=== PATIENT | male | born 1975 | race American Indian/Alaskan Native ===

== ENCOUNTER 2018-09-05 19:17 | Inpatient (IN) | payer MEDICAID, OTHER ==
[2018-09-05 19:17] VITALS: BMI 24.2
[2018-09-05] MEDS ORDERED: Sodium Chloride 0.9% 1,000 ML IV ONE (20:07)
--- NOTE | 2018-09-05 20:07 | C.PDOC ---
History Of Present Illness 43 year old male with PMHx on non insulin dependent DM presents to the ED c/o worsening infection of right leg wound. Patient reports wound has been worsening for the last couple of week. Patient reports feeling pain with ambulation. Patient is non compliant with his medications for diabetes. Patient denies fever, chills, nausea, vomit, diarrhea, injury, fall, trauma, weakness, numbness. Time Seen by Provider: 09/05/18 20:07 Chief Complaint (Nursing): Wound Check History Per: Patient History/Exam Limitations: no limitations Onset/Duration Of Symptoms: Days Ago Current Symptoms Are (Timing): Still Present Location Of Injury: Right: Leg Quality Of Symptoms: Painful, Draining Recent travel outside of the [place]: No Additional History Per: Patient Past Medical History Reviewed: Historical Data, Nursing Documentation, Vital Signs Vital Signs: Last Vital Signs Temp 98.3 F 09/05/18 19:46 Pulse 90 09/05/18 19:46 Resp 14 09/05/18 19:46 BP Pulse Ox 98 09/05/18 19:46 - Medical History PMH: Depression (pt experiences depression as a result of unemployment since 2011) Denies: Chronic Kidney Disease Surgical History: No Surg Hx - [facility] Procedures CATARAC PHACOEMULS/ASPIR (03/31/15) INSERT LENS AT CATAR EXT (03/31/15) Family History: States: Unknown Family Hx - Social History Hx Alcohol Use: No Hx Substance Use: No - Immunization History Hx Tetanus Toxoid Vaccination: No Hx Influenza Vaccination: No Hx Pneumococcal Vaccination: No Review Of Systems Constitutional: Negative for: Fever, Chills Cardiovascular: Negative for: Chest Pain Respiratory: Negative for: Shortness of Breath Gastrointestinal: Negative for: Nausea, Vomiting, Abdominal Pain Musculoskeletal: Positive for: Leg Pain Skin: Positive for: Other Neurological: Negative for: Weakness, Numbness, Headache, Dizziness Physical Exam - Physical Exam Appears: Non-toxic, No Acute Distress Skin: Warm, Dry Head: Normacephalic Eye(s): bilateral: Normal Inspection Oral Mucosa: Dry Neck: Supple Chest: Symmetrical Cardiovascular: Rhythm Regular Respiratory: No Rales, No Rhonchi, No Wheezing Gastrointestinal/Abdominal: Soft, No Tenderness, No Guarding, No Rebound Extremity: Capillary Refill (< 2 seconds) Extremity: Right: Other (5x10 cm area of erythema induration with central non healing ulcer with purulent materila expressed), Bilateral: Atraumatic, Normal ROM Pulses: Left Dorsalis Pedis: Normal, Right Dorsalis Pedis: Normal Neurological/Psych: Oriented x3, Normal Speech, Normal Cognition, Normal Motor, Normal Sensation Gait: Steady (with pain) ED Course And Treatment - Laboratory Results Result Diagrams: 09/05/18 20:16 09/05/18 20:16 O2 Sat by Pulse Oximetry: 98 (ON RA) Pulse Ox Interpretation: Normal - CT Scan/US CT lower extremity Other Rad Studies (CT/US): Read By Radiologist, Radiology Report Reviewed CT/US Interpretation: EXAM: CT Tibia and Fibula, right, without IV contrast. CLINICAL HISTORY: Cellulitis, abscess. TECHNIQUE: Axial computed tomography images of the right tibia and fibula without intravenous contrast. CONTRAST: None. COMPARISON: None provided. FINDINGS: BONES: No acute fracture is evident. No aggressive appearing osseous lesion. No periosteal reaction evident. JOINTS: Diffuse subcutaneous swelling about the knee and extending into the calf and ankle most compatible with cellulitis. SOFT TISSUES: 2 small metallic elongated structures are noted in the region of prepatellar bursa compatible with foreign bodies. IMPRESSION: 1. 2 small metallic elongated structures are noted in the region of prepatellar bursa compatible with foreign bodies. 2. Diffuse subcutaneous swelling about the knee and extending into the calf and ankle most compatible with cellulitis. No evidence of abscess. . Electronically signed on Sep 05, 2018 10:17:49 PM EST by: Amish Villafuerte M.D., JEREMY Certified By ABR & CBCCT. Fellowship Trained MRI and CT Specialist. Progress Note: Plan: - VBG. - CT lower extremity. - EKG. - Labs. - CXR. - IV fluids. - Zosyn. - Vancomycin. - Blood culture. - UA Disposition Discussed With : Roni Cordova Comment: accepted the pt onhis service and took over the care at 10:22 PM Doctor Will See Patient In The: ED Counseled Patient/Family Regarding: Studies Performed, Diagnosis - Disposition Disposition: HOSPITALIZED Disposition Time: 20:07 Condition: FAIR Forms: [facility] ([place]) - POA Present On Arrival: Poor Glycemic Control, Pressure Ulcer - Clinical Impression Clinical Impression: Infection of skin, Poorly controlled diabetes mellitus, Cellulitis - Scribe Statement The provider has reviewed the documentation as recorded by the Scribbryce Graham All medical record entries made by the Arvind were at my direction and personally dictated by me. I have reviewed the chart and agree that the record accurately reflects my personal performance of the history, physical exam, medical decision making, and the department course for this patient. I have also personally directed, reviewed, and agree with the discharge instructions and disposition. Decision To Admit - Pt Status Changed To: Hospital Disposition Of: Inpatient - Admit Certification Admit to Inpatient:: After my assessment, the patient will require hospitalization for at least two midnights. This is because of the severity of symptoms shown, intensity of services needed, and/or the medical risk in this patient being treated as an outpatient. - InPatient: Physician Admission Certification: I certify that this patient requires 2 or more midnights of care for the following reason:: After my assessment, the patient will require hospitalization for at least two midnights. This is because of the severity of symptoms shown, intensity of services needed, and/or the medical risk in this patient being treated as an outpatient. - . Bed Request Type: Regular Admitting Physician: Roni Cordova Patient Diagnosis: Infection of skin, Poorly controlled diabetes mellitus, Cellulitis
[2018-09-05 20:19] LABS: BASO # 0.1 K/uL (0.0-0.2); EOS # 0.1 K/uL (0.0-0.7); EOS % 0.8 % (0.0-4.0); LYMPH # 1.9 K/uL (1.0-4.3); LYMPH % 21.5 % (20.0-40.0); MEAN CELL VOLUME 92.1 fL (80.0-94.0); MEAN CORPUSCULAR HEMOGLOBIN 30.4 pg (27.0-31.0); MEAN PLATELET VOLUME 8.9 fL (7.2-11.7); MONO # 0.8 K/uL (0.0-0.8); MONO % 9.4 % (0.0-10.0); NEUT # 5.9 K/uL (1.8-7.0); NEUT % 67.3 % (50.0-75.0); RBC 3.29 Mil/uL (4.40-5.90); RED CELL DISTRIBUTION WIDTH 12.7 % (11.5-14.5); WHITE BLOOD COUNT 8.8 K/uL (4.8-10.8)
[2018-09-05] MEDS ORDERED: Piperacillin/Tazobact 3.375 gm 100 ML IVPB STA (20:21)
[2018-09-05 20:27] LABS: PROTHROMBIN TIME 10.7 SECONDS (9.7-12.2)
[2018-09-05 20:30] LABS: VENOUS BLOOD GAS PCO2 50 mmHg (40-60); VENOUS BLOOD GAS PO2 32 mm/Hg (30-55)
[2018-09-05] MEDS ORDERED: Vancomycin 1 GM 1 GM/250 ML BAG IVPB SCH (20:30)
[2018-09-05] MEDS ORDERED: Piperacillin/Tazobact 3.375 gm 100 ML IVPB ONE (20:49)
[2018-09-05] MEDS ORDERED: Vancomycin 1 GM 1 GM/250 ML BAG IVPB ONE ×2 (20:49→21:00)
[2018-09-05 20:56] LABS: ALB/GLOB RATIO 0.8 (1.0-2.1); ALBUMIN 3.3 g/dL (3.5-5.0); ALT/SGPT 17 U/L (21-72); AST/SGOT 25 U/L (17-59); BLOOD UREA NITROGEN 38 mg/dL (9-20); CALCIUM 8.9 mg/dl (8.6-10.4); GFR NON-AFRICAN AMERICAN 55
[2018-09-05 21:00] LABS: SQUAMOUS EPITHIAL < 1 /hpf (0-5); URINE BILIRUBIN NEGATIVE (NEGATIVE); URINE BLOOD 2+ (NEGATIVE); URINE CLARITY Clear (Clear); URINE COLOR Straw (YELLOW); URINE GLUCOSE (UA) 3+ mg/dL (Normal); URINE LEUKOCYTE ESTERASE NEG Leu/uL (Negative); URINE PROTEIN 2+ mg/dL (NEGATIVE); URINE UROBILINOGEN NORMAL mg/dL (0.2-1.0)
[2018-09-05] MEDS ORDERED: (Novolin R) Insulin Human Regular 100 units/ml vial SC ONE (22:04)
[2018-09-05] MEDS ORDERED: Glucagon Recombinant 1 mg Inj IM PRN (22:10)
[2018-09-05] MEDS ORDERED: Dextrose 50% SYRINGE Inj (50 ml) IV PRN (22:10)
[2018-09-05] MEDS ORDERED: (Novolin R) Insulin Human Regular 100 units/ml vial ONE (22:12)
[2018-09-05 22:56] LABS: BARBITURATES, UR NEGATIVE (NEGATIVE); BENZODIAZEPINES, UR NEGATIVE (NEGATIVE); OPIATES, UR NEGATIVE (NEGATIVE); PHENCYCLIDINE, UR NEGATIVE (NEGATIVE)
--- NOTE | 2018-09-06 01:32 | CP.PCM.HP ---
<Mattie Strange - Last Filed: 09/06/18 03:49> History of Present Illness - History of Present Illness History of Present Illness: cc: "leg swelling" Mr. Alarcon is a 43 year old male PMH uncontrolled diabetes, depression comes in for persistent leg wound on his R calf. On 08/16 a small pimple like formation formed on his right lateral calf. Over the next week, it grew in size, formed a head, and popped on its on. It drained a purulent, non- smelly liquid and has been leaking ever since. The patient attempted to keep the wound clean with hydrogen peroxide and dab drying it before wrapping it with gauze. The open wound remained the same size, but the skin surrounding it became erythematous and edematous. It swelled to the point of him being unable to bear weight due to the pain, expanding from just below his knee to his ankle. Only in the last two days has the swelling started to come down and him being able to bear weight once more. He was finally urged to come in by his mother who has told him to come seek medical treatment when it started. But due to his lack of insurance and fear of doctors, he didn't come in until now since he can walk again. Denies fever, chills, chest pain, palpitations, abdominal pain, back pain, left leg pain. PMD: none PMH: uncontrolled DM, depression Med: hasn't been on medication in 3 years. Was on Metformin bid All: NKDA PSxHx: L cataract surgery 2014 FamHx: unknown SocHx: 2-3 beers per month. Denies tobacco, illicit drug use. Currently moved from [facility] staying with a friend. 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 Proxy: mother- Marilin Alarcon [phone] Full Code Present on Admission - Present on Admission Any Indicators Present on Admission: No Review of Systems - Constitutional Constitutional: absent: Chills, Fever - EENT Eyes: absent: Blurred Vision, Diplopia Ears: absent: Decreased Hearing, Tinnitus, Dizziness - Cardiovascular Cardiovascular: absent: Chest Pain, Palpitations - Respiratory Respiratory: absent: Cough, Dyspnea - Gastrointestinal Gastrointestinal: absent: Abdominal Pain, Constipation, Diarrhea, Nausea, Vomiting - Genitourinary Genitourinary: absent: Dysuria, Urinary Frequency - Neurological Neurological: absent: Numbness, Tingling - Psychiatric Psychiatric: absent: Depression, Homicidal Ideation, Suicidal Ideation Past Patient History - Past Medical History & Family History Past Medical History?: Yes - Past Social History Smoking Status: Never Smoked Alcohol: Social Drugs: Denies - CARDIAC Hx Cardiac Disorders: No - PULMONARY Hx Respiratory Disorders: No - NEUROLOGICAL Hx Neurological Disorder: No - HEENT Hx HEENT Problems: Yes Hx Cataracts: Yes - RENAL Hx Chronic Kidney Disease: No - ENDOCRINE/METABOLIC Hx Endocrine Disorders: Yes Hx Diabetes Mellitus Type 2: Yes (non compliant) - HEMATOLOGICAL/ONCOLOGICAL Hx Blood Disorders: No - INTEGUMENTARY Hx Dermatological Problems: No - MUSCULOSKELETAL/RHEUMATOLOGICAL Hx Musculoskeletal Disorders: No - GASTROINTESTINAL Hx Gastrointestinal Disorders: No - GENITOURINARY/GYNECOLOGICAL Hx Genitourinary Disorders: No - PSYCHIATRIC Hx Depression: Yes (pt experiences depression as a result of unemployment since 2011) Hx Substance Use: No - SURGICAL HISTORY Hx Surgeries: No - ANESTHESIA Hx Anesthesia: No Meds Allergies/Adverse Reactions: Allergies Allergy/AdvReac Type Severity Reaction Status Date / Time No Known Allergies Allergy Verified 09/05/18 19:50 Physical Exam - Constitutional Appears: Well, No Acute Distress - Head Exam Head Exam: ATRAUMATIC, NORMOCEPHALIC - Eye Exam Eye Exam: EOMI, PERRL Pupil Exam: NORMAL ACCOMODATION Additional comments: glasses - ENT Exam ENT Exam: Mucous Membranes Moist - Neck Exam Neck exam: Negative for: Lymphadenopathy, Tenderness - Respiratory Exam Respiratory Exam: Clear to Auscultation Bilateral, NORMAL BREATHING PATTERN. absent: Rales, Rhonchi, Wheezes - Cardiovascular Exam Cardiovascular Exam: REGULAR RHYTHM, +S1, +S2. absent: Gallop, Rubs, Systolic Murmur - GI/Abdominal Exam GI & Abdominal Exam: Normal Bowel Sounds, Soft. absent: Distended, Firm, Guarding, Rebound, Tenderness - Extremities Exam Extremities exam: Positive for: calf tenderness, normal capillary refill, tenderness, pedal pulses present Additional comments: peripheral pulses palpable bilaterally (radial, DP, PT) IV access in R AC - Neurological Exam Neurological exam: Alert, CN II-XII Intact, Oriented x3 - Psychiatric Exam Psychiatric exam: Normal Affect, Normal Mood - Skin Skin Exam: Normal Color, Warm Additional comments: frankly oozing open lesion white pus at midway of calf dry scaly skin erythematous and edematous skin marked for borders Results - Vital Signs Recent Vital Signs: Last Vital Signs Temp 98.5 F 09/06/18 00:44 Pulse 81 09/06/18 00:44 Resp 20 09/06/18 00:44 BP 132/85 09/06/18 00:44 Pulse Ox 98 09/06/18 00:44 - Labs Result Diagrams: 09/05/18 20:16 09/05/18 20:16 Labs: Laboratory Results - last 24 hr 09/05/18 09/05/18 09/05/18 19:45 20:16 20:16 WBC 8.8 RBC 3.29 L Hgb 10.0 L D Hct 30.4 L MCV 92.1 MCH 30.4 MCHC 33.0 RDW 12.7 Plt Count 405 H D MPV 8.9 Neut % (Auto) 67.3 Lymph % (Auto) 21.5 [place] % (Auto) 9.4 Eos % (Auto) 0.8 Baso % (Auto) 1.0 Neut # (Auto) 5.9 Lymph # (Auto) 1.9 [place] # (Auto) 0.8 Eos # (Auto) 0.1 Baso # (Auto) 0.1 PT 10.7 INR 1.0 APTT 34 pO2 VBG pH VBG pCO2 VBG HCO3 VBG Total CO2 VBG O2 Sat (Calc) VBG Base Excess VBG Potassium Glucose Lactate FiO2 Crit Value Called To Crit Value Called By Crit Value Read Back Blood Gas Notified Time Sodium Potassium Chloride Carbon Dioxide Anion Gap BUN Creatinine Est GFR ( Amer) Est GFR (Non-Af Amer) POC Glucose (mg/dL) > 500 H* Random Glucose Calcium Total Bilirubin AST ALT Alkaline Phosphatase Total Protein Albumin Globulin Albumin/Globulin Ratio Venous Blood Potassium Urine Color Urine Clarity Urine pH Ur Specific [place] Urine Protein Urine Glucose (UA) Urine Ketones Urine Blood Urine Nitrate Urine Bilirubin Urine Urobilinogen Ur Leukocyte Esterase Urine WBC (Auto) Urine RBC (Auto) Ur Squamous Epith Cells Urine Opiates Screen Urine Methadone Screen Ur Barbiturates Screen Ur Phencyclidine Scrn Ur Amphetamines Screen U Benzodiazepines Scrn U Oth Cocaine Metabols U Cannabinoids Screen B-Hydroxybutyrate 09/05/18 09/05/18 09/05/18 20:16 20:20 20:46 WBC RBC Hgb Hct MCV MCH MCHC RDW Plt Count MPV Neut % (Auto) Lymph % (Auto) [place] % (Auto) Eos % (Auto) Baso % (Auto) Neut # (Auto) Lymph # (Auto) [place] # (Auto) Eos # (Auto) Baso # (Auto) PT INR APTT pO2 32 VBG pH 7.40 VBG pCO2 50 VBG HCO3 27.9 VBG Total CO2 32.5 H VBG O2 Sat (Calc) 67.1 H VBG Base Excess 5.0 H VBG Potassium 4.8 Glucose 586 H* Lactate 1.2 FiO2 21.0 Crit Value Called To Medardo calvert Crit Value Called By Hugo [facility] Crit Value Read Back Y Blood Gas Notified Time 2029 Sodium 131 L 133.0 Potassium 5.0 Chloride 93 L 99.0 Carbon Dioxide 30 Anion Gap 13 BUN 38 H Creatinine 1.4 Est GFR ( Amer) > 60 Est GFR (Non-Af Amer) 55 POC Glucose (mg/dL) Random Glucose 591 H* D Calcium 8.9 Total Bilirubin 0.4 AST 25 ALT 17 L Alkaline Phosphatase 522 H Total Protein 7.4 Albumin 3.3 L Globulin 4.1 H Albumin/Globulin Ratio 0.8 L Venous Blood Potassium 4.8 Urine Color Straw Urine Clarity Clear Urine pH 5.0 Ur Specific [place] 1.026 Urine Protein 2+ H Urine Glucose (UA) 3+ H Urine Ketones Negative Urine Blood 2+ H Urine Nitrate Negative Urine Bilirubin Negative Urine Urobilinogen Normal Ur Leukocyte Esterase Neg Urine WBC (Auto) 2 Urine RBC (Auto) 14 H Ur Squamous Epith Cells < 1 Urine Opiates Screen Urine Methadone Screen Ur Barbiturates Screen Ur Phencyclidine Scrn Ur Amphetamines Screen U Benzodiazepines Scrn U Oth Cocaine Metabols U Cannabinoids Screen B-Hydroxybutyrate 0.05 09/05/18 09/05/18 21:43 22:30 WBC RBC Hgb Hct MCV MCH MCHC RDW Plt Count MPV Neut % (Auto) Lymph % (Auto) [place] % (Auto) Eos % (Auto) Baso % (Auto) Neut # (Auto) Lymph # (Auto) [place] # (Auto) Eos # (Auto) Baso # (Auto) PT INR APTT pO2 VBG pH VBG pCO2 VBG HCO3 VBG Total CO2 VBG O2 Sat (Calc) VBG Base Excess VBG Potassium Glucose Lactate FiO2 Crit Value Called To Crit Value Called By Crit Value Read Back Blood Gas Notified Time Sodium Potassium Chloride Carbon Dioxide Anion Gap BUN Creatinine Est GFR ( Amer) Est GFR (Non-Af Amer) POC Glucose (mg/dL) 481 H* Random Glucose Calcium Total Bilirubin AST ALT Alkaline Phosphatase Total Protein Albumin Globulin Albumin/Globulin Ratio Venous Blood Potassium Urine Color Urine Clarity Urine pH Ur Specific [place] Urine Protein Urine Glucose (UA) Urine Ketones Urine Blood Urine Nitrate Urine Bilirubin Urine Urobilinogen Ur Leukocyte Esterase Urine WBC (Auto) Urine RBC (Auto) Ur Squamous Epith Cells Urine Opiates Screen Negative Urine Methadone Screen Negative Ur Barbiturates Screen Negative Ur Phencyclidine Scrn Negative Ur Amphetamines Screen Negative U Benzodiazepines Scrn Negative U Oth Cocaine Metabols Negative U Cannabinoids Screen Negative B-Hydroxybutyrate - EKG Data EKG Interpreted by: ER Physician EKG shows normal: Sinus rhythm Rate: Normal Assessment & Plan - Assessment and Plan (Free Text) Assessment: 43yo M PMH uncontrolled diabetes, depression admitted for poorly healing R calf wound. Plan: Lower Lateral Leg cellulitis - CT (09/05): pending read - f/u blood Cx - f/u wound Cx - Vanc 1gm IV q12 (started 09/05) - Vanc trough 12/ at 9:30am - Vanc trough 12/ at 9:30am - Zosyn 3.375gm IV q6 (started 09/05) - ID consulted: Dr. Langston - nini appreciated - Surgery consulted: Dr. Salomon campbell appreciated - warm compresses to exude pus - no surgical intervention at this time Right lower lateral leg diabetic ulcer - see above - no evidence of periosteal reaction on CT leg Uncontrolled Diabetes - patient has not taken medication for the last 3 years - f/u Hgb A1c - Regular ISS - hypoglycemia protocol - f/u TSH, T4, lipid panel - Crestor 5mg po HS - Lisinopril 2.5mg po daily Depression - Patient did not reveal during exam, based on prior record review - denies plans to hurt himself, is motivated to get healthy to care for his daughter - f/u UDS - Psych consult: Dr. Miller - help appreciated Hyponatremia - likely pseudohyponatremia 2/2 from elevated glucose (corrected: 137) - 14u regular insulin given in ED - Accucheck at 1am was in 64, followed hypoglycemia protocol - trend with AM labs Anemia - likely 2/2 chronic disease (DM2) - f/u VitB12, Folate, Fe studies PPx - DVT: risk score 2-Heparin 5000u sc q8, SCD left leg only - GI: not indicated - Diet: HHD diabetic d/w Dr. Klever Strange PGY-1 - Date & Time Date: 09/05/18 Time: 22:30 <Roni Cordova - Last Filed: 09/06/18 06:46> Results - Vital Signs Recent Vital Signs: Last Vital Signs Temp 98.5 F 09/06/18 00:50 Pulse 93 H 09/06/18 00:50 Resp 18 09/06/18 03:05 BP 147/81 09/06/18 00:50 Pulse Ox 97 09/06/18 00:50 - Labs Result Diagrams: 09/05/18 20:16 09/05/18 20:16 Labs: Laboratory Results - last 24 hr 09/05/18 09/05/18 09/05/18 19:45 20:16 20:16 WBC 8.8 RBC 3.29 L Hgb 10.0 L D Hct 30.4 L MCV 92.1 MCH 30.4 MCHC 33.0 RDW 12.7 Plt Count 405 H D MPV 8.9 Neut % (Auto) 67.3 Lymph % (Auto) 21.5 [place] % (Auto) 9.4 Eos % (Auto) 0.8 Baso % (Auto) 1.0 Neut # (Auto) 5.9 Lymph # (Auto) 1.9 [place] # (Auto) 0.8 Eos # (Auto) 0.1 Baso # (Auto) 0.1 PT 10.7 INR 1.0 APTT 34 pO2 VBG pH VBG pCO2 VBG HCO3 VBG Total CO2 VBG O2 Sat (Calc) VBG Base Excess VBG Potassium Glucose Lactate FiO2 Crit Value Called To Crit Value Called By Crit Value Read Back Blood Gas Notified Time Sodium Potassium Chloride Carbon Dioxide Anion Gap BUN Creatinine Est GFR ( Amer) Est GFR (Non-Af Amer) POC Glucose (mg/dL) > 500 H* Random Glucose Calcium Total Bilirubin AST ALT Alkaline Phosphatase Total Protein Albumin Globulin Albumin/Globulin Ratio Venous Blood Potassium Urine Color Urine Clarity Urine pH Ur Specific [place] Urine Protein Urine Glucose (UA) Urine Ketones Urine Blood Urine Nitrate Urine Bilirubin Urine Urobilinogen Ur Leukocyte Esterase Urine WBC (Auto) Urine RBC (Auto) Ur Squamous Epith Cells Urine Opiates Screen Urine Methadone Screen Ur Barbiturates Screen Ur Phencyclidine Scrn Ur Amphetamines Screen U Benzodiazepines Scrn U Oth Cocaine Metabols U Cannabinoids Screen B-Hydroxybutyrate 09/05/18 09/05/18 09/05/18 20:16 20:20 20:46 WBC RBC Hgb Hct MCV MCH MCHC RDW Plt Count MPV Neut % (Auto) Lymph % (Auto) [place] % (Auto) Eos % (Auto) Baso % (Auto) Neut # (Auto) Lymph # (Auto) [place] # (Auto) Eos # (Auto) Baso # (Auto) PT INR APTT pO2 32 VBG pH 7.40 VBG pCO2 50 VBG HCO3 27.9 VBG Total CO2 32.5 H VBG O2 Sat (Calc) 67.1 H VBG Base Excess 5.0 H VBG Potassium 4.8 Glucose 586 H* Lactate 1.2 FiO2 21.0 Crit Value Called To Medardo calvert Crit Value Called By [facility] Crit Value Read Back Y Blood Gas Notified Time 2029 Sodium 131 L 133.0 Potassium 5.0 Chloride 93 L 99.0 Carbon Dioxide 30 Anion Gap 13 BUN 38 H Creatinine 1.4 Est GFR ( Amer) > 60 Est GFR (Non-Af Amer) 55 POC Glucose (mg/dL) Random Glucose 591 H* D Calcium 8.9 Total Bilirubin 0.4 AST 25 ALT 17 L Alkaline Phosphatase 522 H Total Protein 7.4 Albumin 3.3 L Globulin 4.1 H Albumin/Globulin Ratio 0.8 L Venous Blood Potassium 4.8 Urine Color Straw Urine Clarity Clear Urine pH 5.0 Ur Specific [place] 1.026 Urine Protein 2+ H Urine Glucose (UA) 3+ H Urine Ketones Negative Urine Blood 2+ H Urine Nitrate Negative Urine Bilirubin Negative Urine Urobilinogen Normal Ur Leukocyte Esterase Neg Urine WBC (Auto) 2 Urine RBC (Auto) 14 H Ur Squamous Epith Cells < 1 Urine Opiates Screen Urine Methadone Screen Ur Barbiturates Screen Ur Phencyclidine Scrn Ur Amphetamines Screen U Benzodiazepines Scrn U Oth Cocaine Metabols U Cannabinoids Screen B-Hydroxybutyrate 0.05 09/05/18 09/05/18 09/06/18 21:43 22:30 01:37 WBC RBC Hgb Hct MCV MCH MCHC RDW Plt Count MPV Neut % (Auto) Lymph % (Auto) [place] % (Auto) Eos % (Auto) Baso % (Auto) Neut # (Auto) Lymph # (Auto) [place] # (Auto) Eos # (Auto) Baso # (Auto) PT INR APTT pO2 VBG pH VBG pCO2 VBG HCO3 VBG Total CO2 VBG O2 Sat (Calc) VBG Base Excess VBG Potassium Glucose Lactate FiO2 Crit Value Called To Crit Value Called By Crit Value Read Back Blood Gas Notified Time Sodium Potassium Chloride Carbon Dioxide Anion Gap BUN Creatinine Est GFR ( Amer) Est GFR (Non-Af Amer) POC Glucose (mg/dL) 481 H* 68 Random Glucose Calcium Total Bilirubin AST ALT Alkaline Phosphatase Total Protein Albumin Globulin Albumin/Globulin Ratio Venous Blood Potassium Urine Color Urine Clarity Urine pH Ur Specific [place] Urine Protein Urine Glucose (UA) Urine Ketones Urine Blood Urine Nitrate Urine Bilirubin Urine Urobilinogen Ur Leukocyte Esterase Urine WBC (Auto) Urine RBC (Auto) Ur Squamous Epith Cells Urine Opiates Screen Negative Urine Methadone Screen Negative Ur Barbiturates Screen Negative Ur Phencyclidine Scrn Negative Ur Amphetamines Screen Negative U Benzodiazepines Scrn Negative U Oth Cocaine Metabols Negative U Cannabinoids Screen Negative B-Hydroxybutyrate 09/06/18 01:40 WBC RBC Hgb Hct MCV MCH MCHC RDW Plt Count MPV Neut % (Auto) Lymph % (Auto) [place] % (Auto) Eos % (Auto) Baso % (Auto) Neut # (Auto) Lymph # (Auto) [place] # (Auto) Eos # (Auto) Baso # (Auto) PT INR APTT pO2 VBG pH VBG pCO2 VBG HCO3 VBG Total CO2 VBG O2 Sat (Calc) VBG Base Excess VBG Potassium Glucose Lactate FiO2 Crit Value Called To Crit Value Called By Crit Value Read Back Blood Gas Notified Time Sodium Potassium Chloride Carbon Dioxide Anion Gap BUN Creatinine Est GFR ( Amer) Est GFR (Non-Af Amer) POC Glucose (mg/dL) 64 L Random Glucose Calcium Total Bilirubin AST ALT Alkaline Phosphatase Total Protein Albumin Globulin Albumin/Globulin Ratio Venous Blood Potassium Urine Color Urine Clarity Urine pH Ur Specific [place] Urine Protein Urine Glucose (UA) Urine Ketones Urine Blood Urine Nitrate Urine Bilirubin Urine Urobilinogen Ur Leukocyte Esterase Urine WBC (Auto) Urine RBC (Auto) Ur Squamous Epith Cells Urine Opiates Screen Urine Methadone Screen Ur Barbiturates Screen Ur Phencyclidine Scrn Ur Amphetamines Screen U Benzodiazepines Scrn U Oth Cocaine Metabols U Cannabinoids Screen B-Hydroxybutyrate Attending/Attestation - Attestation I have personally seen and examined this patient.: Yes I have fully participated in the care of the patient.: Yes I have reviewed all pertinent clinical information: Yes Notes (Text): 09/06/18 06:43 Patient was seen and examined right before resident Dr. Vonda Strange. History, Physical, Assessment and Plan and all orders were gone over in detail with Dr. Strange. Please note that open wound that Dr. Strange mentions in Physical Exam section is located in the Right Lateral Lower Mid Tibial region, it is circular in nature and measures 2.5 cm in diameter. It is surrounded by a large area of skin that is warm to the touch, nontender to palpation, slightly erythematous nonblanchable and edematous. The outer margins of this large area of the skin was demarcated with black ink. Roni Cordova D.O.
[2018-09-06] MEDS ORDERED: Pneumococcal 23-Valent Vaccine IM ONE (03:29)
[2018-09-06] MEDS: Piperacill/Tazo 3.375gm in Dex 3.375 GM/50 ML BAG IVPB SCH ×4 (03:44→21:09)
--- NOTE | 2018-09-06 05:52 | CP.PCM.CON ---
History of Present Illness - History of Present Illness History of Present Illness: General Surgery Consult Note for Dr. Latif This is a 43M with a PMH DM who presented due to a lower extremity infection that began in august however on 08/16 a "small pimple" developed on his right lateral calf. It popped last week and starte draining purulent fluid. Since then the swelling has decreased as well as the pain. He denies any fevers or chills at home. He reports no affect on his ability to walk or get around. [facility]. Denies fever, chills, chest pain, palpitations, abdominal pain, back pain, left leg pain. PMH: uncontrolled DM, depression PSH: L cataract surgery 2014 Social: Denies vices All: NKDA Review of Systems - Review of Systems Review of Systems: 12 point reveiew of symptoms conducted and negative except for draining skin lesion Past Patient History - Past Medical History & Family History Past Medical History?: Yes - Past Social History Smoking Status: Never Smoked Alcohol: Social Drugs: Denies - CARDIAC Hx Cardiac Disorders: No - PULMONARY Hx Respiratory Disorders: No - NEUROLOGICAL Hx Neurological Disorder: No - HEENT Hx HEENT Problems: Yes Hx Cataracts: Yes - RENAL Hx Chronic Kidney Disease: No - ENDOCRINE/METABOLIC Hx Endocrine Disorders: Yes Hx Diabetes Mellitus Type 2: Yes (non compliant) - HEMATOLOGICAL/ONCOLOGICAL Hx Blood Disorders: No - INTEGUMENTARY Hx Dermatological Problems: No - MUSCULOSKELETAL/RHEUMATOLOGICAL Hx Musculoskeletal Disorders: No - GASTROINTESTINAL Hx Gastrointestinal Disorders: No - GENITOURINARY/GYNECOLOGICAL Hx Genitourinary Disorders: No - PSYCHIATRIC Hx Depression: Yes (pt experiences depression as a result of unemployment since 2011) Hx Substance Use: No - SURGICAL HISTORY Hx Surgeries: No - ANESTHESIA Hx Anesthesia: No Meds Allergies/Adverse Reactions: Allergies Allergy/AdvReac Type Severity Reaction Status Date / Time No Known Allergies Allergy Verified 09/05/18 19:50 - Medications Medications: Current Medications Dextrose (Dextrose 50% Inj) 0 ml IV STAT PRN; Protocol PRN Reason: Hypoglycemia Protocol Dextrose (Glutose 15) 0 gm PO ONCE PRN; Protocol PRN Reason: Hypoglycemia Protocol Glucagon (Glucagen Diagnostic Kit) 0 mg IM STAT PRN; Protocol PRN Reason: Hypoglycemia Protocol Heparin Sodium (Porcine) (Heparin) 5,000 units SC Q8 [facility] Last Admin: 09/05/18 23:13 Dose: 5,000 units Vancomycin/Sodium Chloride (Vancomycin 1 Gm/Ns 200 Ml) 1 gm in 200 mls @ 166.6 mls/hr IVPB Q12H [facility]; Protocol Stop: 09/11/18 10:01 Dextrose (Dextrose 5% In Water 1000 Ml) 1,000 mls @ 0 mls/hr IV .Q0M PRN; Protocol PRN Reason: Hypoglycemia Protocol Piperacillin Sod/Tazobactam Sod (Zosyn 3.375 Gm Iv Premix) 3.375 gm in 50 mls @ 200 mls/hr IVPB Q6H [facility]; Protocol Last Admin: 09/06/18 03:44 Dose: 200 mls/hr Influenza Virus Vaccine (Fluzone Quad [id number]) 60 mcg IM .ONCE ONE Stop: 09/07/18 10:01 Insulin Human Regular (Novolin R) 0 unit SC ACHS [facility]; Protocol Lactobacillus Acidophilus (Bacid Acidophilus) 1 cap PO Q12H [facility] Lisinopril (Zestril) 2.5 mg PO DAILY [facility] Pneumococcal Polyvalent Vaccine (Pneumovax 23 Vaccine) 0.5 ml IM .ONCE ONE Stop: 09/07/18 10:01 Rosuvastatin Calcium (Crestor) 5 mg PO HS [facility] Last Admin: 09/05/18 23:14 Dose: 5 mg Physical Exam - Constitutional Appears: Non-toxic, No Acute Distress - Head Exam Head Exam: ATRAUMATIC, NORMOCEPHALIC - Eye Exam Eye Exam: EOMI - ENT Exam ENT Exam: Mucous Membranes Moist - Respiratory Exam Respiratory Exam: NORMAL BREATHING PATTERN - Cardiovascular Exam Cardiovascular Exam: +S1, +S2 - GI/Abdominal Exam GI & Abdominal Exam: Soft. absent: Distended, Firm, Guarding, Rigid, Tenderness - Extremities Exam Additional comments: right lower extremity calf with ulcerated lesion draining purulent fluid - Neurological Exam Neurological exam: Alert, Oriented x3 - Psychiatric Exam Psychiatric exam: Normal Affect, Normal Mood - Skin Skin Exam: Dry, Intact Results - Vital Signs Recent Vital Signs: Last Vital Signs Temp 98.5 F 09/06/18 00:50 Pulse 93 H 09/06/18 00:50 Resp 18 09/06/18 03:05 BP 147/81 09/06/18 00:50 Pulse Ox 97 09/06/18 00:50 - Labs Result Diagrams: 09/05/18 20:16 09/05/18 20:16 Labs: Laboratory Results - last 24 hr 09/05/18 09/05/18 09/05/18 19:45 20:16 20:16 WBC 8.8 RBC 3.29 L Hgb 10.0 L D Hct 30.4 L MCV 92.1 MCH 30.4 MCHC 33.0 RDW 12.7 Plt Count 405 H D MPV 8.9 Neut % (Auto) 67.3 Lymph % (Auto) 21.5 [place] % (Auto) 9.4 Eos % (Auto) 0.8 Baso % (Auto) 1.0 Neut # (Auto) 5.9 Lymph # (Auto) 1.9 [place] # (Auto) 0.8 Eos # (Auto) 0.1 Baso # (Auto) 0.1 PT 10.7 INR 1.0 APTT 34 pO2 VBG pH VBG pCO2 VBG HCO3 VBG Total CO2 VBG O2 Sat (Calc) VBG Base Excess VBG Potassium Glucose Lactate FiO2 Crit Value Called To Crit Value Called By Crit Value Read Back Blood Gas Notified Time Sodium Potassium Chloride Carbon Dioxide Anion Gap BUN Creatinine Est GFR ( Amer) Est GFR (Non-Af Amer) POC Glucose (mg/dL) > 500 H* Random Glucose Calcium Total Bilirubin AST ALT Alkaline Phosphatase Total Protein Albumin Globulin Albumin/Globulin Ratio Venous Blood Potassium Urine Color Urine Clarity Urine pH Ur Specific [place] Urine Protein Urine Glucose (UA) Urine Ketones Urine Blood Urine Nitrate Urine Bilirubin Urine Urobilinogen Ur Leukocyte Esterase Urine WBC (Auto) Urine RBC (Auto) Ur Squamous Epith Cells Urine Opiates Screen Urine Methadone Screen Ur Barbiturates Screen Ur Phencyclidine Scrn Ur Amphetamines Screen U Benzodiazepines Scrn U Oth Cocaine Metabols U Cannabinoids Screen B-Hydroxybutyrate 09/05/18 09/05/18 09/05/18 20:16 20:20 20:46 WBC RBC Hgb Hct MCV MCH MCHC RDW Plt Count MPV Neut % (Auto) Lymph % (Auto) [place] % (Auto) Eos % (Auto) Baso % (Auto) Neut # (Auto) Lymph # (Auto) [place] # (Auto) Eos # (Auto) Baso # (Auto) PT INR APTT pO2 32 VBG pH 7.40 VBG pCO2 50 VBG HCO3 27.9 VBG Total CO2 32.5 H VBG O2 Sat (Calc) 67.1 H VBG Base Excess 5.0 H VBG Potassium 4.8 Glucose 586 H* Lactate 1.2 FiO2 21.0 Crit Value Called To Medardo calvert Crit Value Called By [facility] Crit Value Read Back Y Blood Gas Notified Time 2029 Sodium 131 L 133.0 Potassium 5.0 Chloride 93 L 99.0 Carbon Dioxide 30 Anion Gap 13 BUN 38 H Creatinine 1.4 Est GFR ( Amer) > 60 Est GFR (Non-Af Amer) 55 POC Glucose (mg/dL) Random Glucose 591 H* D Calcium 8.9 Total Bilirubin 0.4 AST 25 ALT 17 L Alkaline Phosphatase 522 H Total Protein 7.4 Albumin 3.3 L Globulin 4.1 H Albumin/Globulin Ratio 0.8 L Venous Blood Potassium 4.8 Urine Color Straw Urine Clarity Clear Urine pH 5.0 Ur Specific [place] 1.026 Urine Protein 2+ H Urine Glucose (UA) 3+ H Urine Ketones Negative Urine Blood 2+ H Urine Nitrate Negative Urine Bilirubin Negative Urine Urobilinogen Normal Ur Leukocyte Esterase Neg Urine WBC (Auto) 2 Urine RBC (Auto) 14 H Ur Squamous Epith Cells < 1 Urine Opiates Screen Urine Methadone Screen Ur Barbiturates Screen Ur Phencyclidine Scrn Ur Amphetamines Screen U Benzodiazepines Scrn U Oth Cocaine Metabols U Cannabinoids Screen B-Hydroxybutyrate 0.05 09/05/18 09/05/18 09/06/18 21:43 22:30 01:37 WBC RBC Hgb Hct MCV MCH MCHC RDW Plt Count MPV Neut % (Auto) Lymph % (Auto) [place] % (Auto) Eos % (Auto) Baso % (Auto) Neut # (Auto) Lymph # (Auto) [place] # (Auto) Eos # (Auto) Baso # (Auto) PT INR APTT pO2 VBG pH VBG pCO2 VBG HCO3 VBG Total CO2 VBG O2 Sat (Calc) VBG Base Excess VBG Potassium Glucose Lactate FiO2 Crit Value Called To Crit Value Called By Crit Value Read Back Blood Gas Notified Time Sodium Potassium Chloride Carbon Dioxide Anion Gap BUN Creatinine Est GFR ( Amer) Est GFR (Non-Af Amer) POC Glucose (mg/dL) 481 H* 68 Random Glucose Calcium Total Bilirubin AST ALT Alkaline Phosphatase Total Protein Albumin Globulin Albumin/Globulin Ratio Venous Blood Potassium Urine Color Urine Clarity Urine pH Ur Specific [place] Urine Protein Urine Glucose (UA) Urine Ketones Urine Blood Urine Nitrate Urine Bilirubin Urine Urobilinogen Ur Leukocyte Esterase Urine WBC (Auto) Urine RBC (Auto) Ur Squamous Epith Cells Urine Opiates Screen Negative Urine Methadone Screen Negative Ur Barbiturates Screen Negative Ur Phencyclidine Scrn Negative Ur Amphetamines Screen Negative U Benzodiazepines Scrn Negative U Oth Cocaine Metabols Negative U Cannabinoids Screen Negative B-Hydroxybutyrate 09/06/18 01:40 WBC RBC Hgb Hct MCV MCH MCHC RDW Plt Count MPV Neut % (Auto) Lymph % (Auto) [place] % (Auto) Eos % (Auto) Baso % (Auto) Neut # (Auto) Lymph # (Auto) [place] # (Auto) Eos # (Auto) Baso # (Auto) PT INR APTT pO2 VBG pH VBG pCO2 VBG HCO3 VBG Total CO2 VBG O2 Sat (Calc) VBG Base Excess VBG Potassium Glucose Lactate FiO2 Crit Value Called To Crit Value Called By Crit Value Read Back Blood Gas Notified Time Sodium Potassium Chloride Carbon Dioxide Anion Gap BUN Creatinine Est GFR ( Amer) Est GFR (Non-Af Amer) POC Glucose (mg/dL) 64 L Random Glucose Calcium Total Bilirubin AST ALT Alkaline Phosphatase Total Protein Albumin Globulin Albumin/Globulin Ratio Venous Blood Potassium Urine Color Urine Clarity Urine pH Ur Specific [place] Urine Protein Urine Glucose (UA) Urine Ketones Urine Blood Urine Nitrate Urine Bilirubin Urine Urobilinogen Ur Leukocyte Esterase Urine WBC (Auto) Urine RBC (Auto) Ur Squamous Epith Cells Urine Opiates Screen Urine Methadone Screen Ur Barbiturates Screen Ur Phencyclidine Scrn Ur Amphetamines Screen U Benzodiazepines Scrn U Oth Cocaine Metabols U Cannabinoids Screen B-Hydroxybutyrate Assessment & Plan - Assessment and Plan (Free Text) Assessment: 43M with draining abscess Warm COmpresses IV ABX Follow up cultures and change abx depending on sensitivities Further recs per Dr. Salomon Marin PGY3
[2018-09-06] MEDS: Lactobacillus Acidophilus 500 MU Cap PO SCH ×2 (06:18→18:03)
[2018-09-06 07:38] LABS: BASO % 0.4 % (0.0-2.0); EOS % 0.1 % (0.0-4.0); LYMPH # 1.4 K/uL (1.0-4.3); LYMPH % 13.2 % (20.0-40.0); MEAN CORPUSCULAR HEMOGLOBIN 31.3 pg (27.0-31.0); MEAN CORPUSCULAR HGB CONC 34.8 g/dL (33.0-37.0); MEAN PLATELET VOLUME 8.5 fL (7.2-11.7); MONO # 0.9 K/uL (0.0-0.8); MONO % 8.3 % (0.0-10.0); NEUT # 8.5 K/uL (1.8-7.0); RBC 2.88 Mil/uL (4.40-5.90); RED CELL DISTRIBUTION WIDTH 12.3 % (11.5-14.5); WHITE BLOOD COUNT 10.9 K/uL (4.8-10.8)
[2018-09-06] MEDS: (Novolin R) Insulin Human Regular 100 units/ml vial SC SCH ×4 (07:44→21:38)
[2018-09-06 07:52] LABS: IRON 15 ug/dL (49-181)
[2018-09-06 07:58] LABS: ALB/GLOB RATIO 0.8 (1.0-2.1); ALT/SGPT 21 U/L (21-72); AST/SGOT 26 U/L (17-59); BLOOD UREA NITROGEN 31 mg/dL (9-20); CALCIUM 8.6 mg/dl (8.6-10.4); GFR NON-AFRICAN AMERICAN > 60; HDL CHOLESTEROL 51 mg/dL (30-70)
[2018-09-06 08:01] LABS: MEAN CELL VOLUME 89.9 fL (80.0-94.0)
[2018-09-06 08:08] LABS: % IRON SATURATION 8 (20-55); TOTAL IRON BINDING CAPACITY 196 ug/dL (250-450)
[2018-09-06 08:09] LABS: LDL CHOLESTEROL 109 mg/dL (0-129)
--- NOTE | 2018-09-06 08:15 | CT ---
CT right tibia and fibula HISTORY: Cellulitis. COMPARISON: None available. TECHNIQUE: Multiple contiguous axial images were performed through the right tibia and fibula with the use of intravenous contrast. Subsequently, sagittal and coronal reformatted images were obtained. This CT exam was performed using one or more of the following dose reduction techniques: Automated exposure control, adjustment of the mA and/or kV according to patient size, and/or use of iterative reconstruction technique. Findings: Two elongated vertically-oriented radiopaque densities are seen within the prepatellar soft tissues inferiorly, uncertain clinical etiology, possibly foreign bodies versus additional etiology. Clinical correlation. Correlation with plain x-ray may be helpful. Prominent reticulation and edema within the subcutaneous soft tissues at the anterior and lateral aspect of the left lower extremity at the level of the tibia and fibula consistent with the known cellulitis. In addition, there is reticulation, edema, and swelling seen within the musculature of the anterolateral compartment with loss of distinction of the myofascial planes. This may represent an underlying myositis; however, underlying phlegmonous changes cannot be excluded. In addition, given the containment to the anterolateral compartment a developing compartment syndrome can also not be excluded. Clinical correlation. Correlation with contrast-enhanced MRI may be helpful if clinically indicated. No gross or bony destructive changes noted at level of the bony cortex of the tibia and fibula. Mild hallux valgus deformity. Impression: Prominent reticulation and edema within the subcutaneous soft tissues at the anterior and lateral aspect of the left lower extremity at the level of the tibia and fibula consistent with the known cellulitis. In addition, there is reticulation, edema, and swelling seen within the musculature of the anterolateral compartment with loss of distinction of the myofascial planes. This may represent an underlying myositis; however, underlying phlegmonous changes cannot be excluded. In addition, given the containment to the anterolateral compartment a developing compartment syndrome can also not be excluded. Clinical correlation. Correlation with contrast-enhanced MRI may be helpful if clinically indicated. Two elongated vertically-oriented radiopaque densities are seen within the prepatellar soft tissues inferiorly, uncertain clinical etiology, possibly foreign bodies versus additional etiology. Clinical correlation. Correlation with plain x-ray may be helpful. A preliminary report was generated at 10:17 p.m. on 09/05/[address] Amish Villafuerte from [facility]
--- NOTE | 2018-09-06 08:41 | RAD ---
Chest x-ray single frontal view HISTORY: Shortness of breath. COMPARISON: 12/01/2014 FINDINGS: Mild venous congestion. Small nodular density at the right lung base may represent vessel on end versus small nodule and or granuloma. Tortuous aorta. Heart size within normal limits. Degenerative changes in the spine. IMPRESSION: Mild venous congestion. Small nodular density at the right lung base may represent vessel on end versus small nodule and or granuloma. Tortuous aorta.
[2018-09-06 08:59] LABS: FOLATE 11.5 ng/mL
--- NOTE | 2018-09-06 10:26 | PCM.PSYCH ---
Initial Psychiatric Evaluation - Initial Psychiatric Evaluation Type of Admission: Voluntary Legal Status: Capacity Chief Complaint (in patient's own words): "I'm OK" History of Present Illness and Precipitating Events: Patient is a 43 year old male who is currently single, lives with a friend, has one daughter, and is unemployed. Consult was requested for his depression. He presents to the hospital yesterday because his right leg is swollen. He denies feeling sad. He states that he recently has not been sleeping well and feels like "he has a lot going on". He denies changes in concentration, feelings of guilt, changes in activity, or changes in energy. He reports mild sxs of anxiety and depression b/c of his current stressors. He denies feelings of harming himself or others. He says he hasn't been able to take care of himself because he lacks health insurance. He denies tobacco or illicit drug use. Regarding alcohol use, he says he drinks socially about once a month. Past Psych Hx: Attended "[facility]" 3 years ago due to the stress he felt after losing his then job (?) Past Medical Hx: Diabetes. Hasn't seen doctor in 3 years. Past Family Psych Hx: Denies. Current Medications: Active Medications Generic Name Dose Route Start Last Admin Trade Name Freq PRN Reason Stop Dose Admin Dextrose 0 ml 09/05/18 22:10 Dextrose 50% Inj IV STAT PRN Hypoglycemia Protocol Protocol Dextrose 0 gm 09/05/18 22:10 Glutose 15 PO ONCE PRN Hypoglycemia Protocol Protocol Glucagon 0 mg 09/05/18 22:10 Glucagen Diagnostic Kit IM STAT PRN Hypoglycemia Protocol Protocol Heparin Sodium (Porcine) 5,000 units 09/05/18 22:30 09/06/18 06:18 Heparin SC 5,000 units Q8 [facility] Administration Vancomycin/Sodium Chloride 1 gm in 200 mls @ 166.6 mls/hr 09/06/18 10:00 Vancomycin 1 Gm/Ns 200 Ml IVPB 09/11/18 10:01 Q12H [facility] Protocol Dextrose 1,000 mls @ 0 mls/hr 09/05/18 22:10 Dextrose 5% In Water 1000 Ml IV .Q0M PRN Hypoglycemia Protocol Protocol Per Protocol Piperacillin Sod/Tazobactam Sod 3.375 gm in 50 mls @ 200 mls/hr 09/06/18 03:00 11/30/18 03:44 Zosyn 3.375 Gm Iv Premix IVPB 200 mls/hr Q6H [facility] Administration Protocol Influenza Virus Vaccine 60 mcg 09/07/18 10:00 Fluzone Quad [id number] IM 09/07/18 10:01 .ONCE ONE Insulin Human Regular 0 unit 09/06/18 07:30 09/06/18 07:44 Novolin R SC Not Given ACHS [facility] Protocol Lactobacillus Acidophilus 1 cap 09/06/18 07:00 09/06/18 06:18 Bacid Acidophilus PO 1 cap Q12H [facility] Administration Lisinopril 2.5 mg 09/06/18 10:00 Zestril PO DAILY [facility] Pneumococcal Polyvalent Vaccine 0.5 ml 09/07/18 10:00 Pneumovax 23 Vaccine IM 09/07/18 10:01 .ONCE ONE Rosuvastatin Calcium 5 mg 09/05/18 23:00 09/05/18 23:14 Crestor PO 5 mg HS [facility] Administration Past Psychiatric History - Past Psychiatric History Previous Treatment History: Intensive Outpatient (not intensive, short) Pertinent Medical Hx (Current Medical&Sleep Prob, Allergies): Allergies Allergy/AdvReac Type Severity Reaction Status Date / Time No Known Allergies Allergy Verified 09/05/18 19:50 GlipiZIDE SR [Glucotrol XL] 10 mg PO BID 03/19/15 Metformin HCl [Glucophage] 1,000 mg PO BID 03/19/15 Review of Systems - Psychiatric Psychiatric: Abnormal Sleep Pattern, Anxiety, Depression (mild), Difficulty Concentrating. absent: Hallucinations, Homicidal Ideation, Hopelessness, Suicidal Ideation Mental Status Examination - Personal Presentation Personal Presentation: Looks stated age - Affect Affect: Constricted - Motor Activity Motor Activity: Calm - Reliability in Providing Information Reliability in Providing Information: Good - Speech Speech: Organized - Mood Mood: Depressed (mild), Anxious - Formal Thought Process Formal Thought Process: No Impairment - Cognitive Functions Orientation: Person, Place, Situation, Time Sensorium: Alert Attention/Concentration: Easily distracted Estimate of Intelligence: Average Judgement: Intact, as evidence by: Insight regarding need for hospitalization Memory: Recent intact, as evidence by: Ability to recall events of the day, Remote intact, as evidenced by: Abilit to recall sig. life events - Risk Risk: Withdrawal, Diminished functioning - Strength & Assets Inventory Strength & Assets Inventory: Cooperative - Limitations Limitations: Living alone DSM 5 DX - DSM 5 DSM 5 Diagnosis: Adjustment d/o w anxiety and depression cocaine use d/o in remission - Recommended/Plan of Treatment Treatment Recommendations and Plan of Treatment: No need for psych meds Support and psychoed provided After care and getting help discussed prn meds Psych will sign of 33 min
[2018-09-06] MEDS: Vancomycin 1 gm/NS 200 ml 1 GM/200 ML BAG IVPB SCH ×2 (11:37→21:51)
--- NOTE | 2018-09-06 12:40 | CARD ---
APPROVED REPORT Date of service: 09/05/2018 EKG Measurement Heart [id number] <Conclusion> Normal sinus rhythm ST elevation, probably due to early repolarization Borderline ECG
[2018-09-06] MEDS: oxyCODONE 5 mg Immediate Release Tab PO PRN (15:20)
--- NOTE | 2018-09-06 16:29 | CP.PCM.PN ---
Subjective - Date & Time of Evaluation Date of Evaluation: 09/06/18 Time of Evaluation: 15:00 - Subjective Subjective: PGY-1 Medicine Progress Note for Dr. Henderson's service Patient seen and examined at bedside. Patient offers no acute complaints except mild soreness 2/2 I & D . Patient denies fevers, chills, chest pain, sob, n/v, constipation or diarrhea, dysuria. Objective - Vital Signs/Intake and Output Vital Signs (last 24 hours): Temp Pulse Resp BP Pulse Ox 98.2 F 93 H 20 154/85 H 99 09/06/18 08:00 09/06/18 08:00 09/06/18 08:00 09/06/18 08:00 09/06/18 08:00 - Medications Medications: Current Medications Acetaminophen (Tylenol 325mg Tab) 325 mg PO Q6 PRN PRN Reason: Pain, Mild (1-3) Acetaminophen (Tylenol 325mg Tab) 650 mg PO Q6 PRN PRN Reason: Pain, moderate (4-7) Dextrose (Dextrose 50% Inj) 0 ml IV STAT PRN; Protocol PRN Reason: Hypoglycemia Protocol Dextrose (Glutose 15) 0 gm PO ONCE PRN; Protocol PRN Reason: Hypoglycemia Protocol Glucagon (Glucagen Diagnostic Kit) 0 mg IM STAT PRN; Protocol PRN Reason: Hypoglycemia Protocol Heparin Sodium (Porcine) (Heparin) 5,000 units SC Q8 [facility] Last Admin: 09/06/18 14:46 Dose: 5,000 units Vancomycin/Sodium Chloride (Vancomycin 1 Gm/Ns 200 Ml) 1 gm in 200 mls @ 166.6 mls/hr IVPB Q12H [facility]; Protocol Stop: 09/11/18 10:01 Last Admin: 09/06/18 11:37 Dose: 166.6 mls/hr Dextrose (Dextrose 5% In Water 1000 Ml) 1,000 mls @ 0 mls/hr IV .Q0M PRN; Protocol PRN Reason: Hypoglycemia Protocol Piperacillin Sod/Tazobactam Sod (Zosyn 3.375 Gm Iv Premix) 3.375 gm in 50 mls @ 200 mls/hr IVPB Q6H [facility]; Protocol Last Admin: 09/06/18 14:45 Dose: 200 mls/hr Influenza Virus Vaccine (Fluzone Quad [id number]) 60 mcg IM .ONCE ONE Stop: 09/07/18 10:01 Insulin Human Regular (Novolin R) 0 unit SC ACHS [facility]; Protocol Last Admin: 09/06/18 11:50 Dose: 3 units Lactobacillus Acidophilus (Bacid Acidophilus) 1 cap PO Q12H [facility] Last Admin: 09/06/18 06:18 Dose: 1 cap Lisinopril (Zestril) 2.5 mg PO DAILY [facility] Last Admin: 09/06/18 11:37 Dose: 2.5 mg Oxycodone HCl (Oxycodone Immediate Release Tab) 5 mg PO Q6 PRN PRN Reason: Pain, severe (8-10) Last Admin: 09/06/18 15:20 Dose: 5 mg Pneumococcal Polyvalent Vaccine (Pneumovax 23 Vaccine) 0.5 ml IM .ONCE ONE Stop: 09/07/18 10:01 Rosuvastatin Calcium (Crestor) 5 mg PO HS [facility] Last Admin: 09/05/18 23:14 Dose: 5 mg - Labs Labs: 09/06/18 07:25 09/06/18 07:25 PT 10.7 SECONDS (9.7-12.2) 09/05/18 20:16 INR 1.0 09/05/18 20:16 APTT 34 SECONDS (21-34) 09/05/18 20:16 - Additional Findings Additional findings: - Constitutional Appears: Non-toxic, No Acute Distress - Head Exam Head Exam: ATRAUMATIC, NORMOCEPHALIC - Eye Exam Eye Exam: EOMI - ENT Exam ENT Exam: Mucous Membranes Moist - Respiratory Exam Respiratory Exam: NORMAL BREATHING PATTERN, Clear to Ascultation. absent: rhonchi, wheezes, crackles - Cardiovascular Exam Cardiovascular Exam: +S1, +S2 - GI/Abdominal Exam GI & Abdominal Exam: Soft. absent: Distended, Firm, Guarding, Rigid, Tenderness - Extremities Exam Additional comments: right lower extremity calf with ulcerated lesion draining purulent fluid - Neurological Exam Neurological exam: Alert, Oriented x3 - Psychiatric Exam Psychiatric exam: Normal Affect, Normal Mood - Skin Skin Exam: Dry, Intact Assessment and Plan - Assessment and Plan (Free Text) Assessment: Patient is a 43 yo male w/ PMH of depression, hyperlipidemia, and uncontrolled diabetes is admitted to hospital for treatment of abscess with surrounding cellulitis of the right calf. Psych, Surgery, Infectious Disease was consulted. Patient was treated with Vanc/Zosyn. Patient had elevated blood pressure r eadings so Zestril was initiated. Plan: Abscess with Surrounding Cellulitis Zosyn/Vanc for IV abx coverage Wound culture pending MRI of lower extremity pending Surgery Consulted- Dr. Daley: bedside I&D Oxycodone 5mg PO q6 PRN for pain Acetaminophen 325mg/650mg PO q6 PRN for pain Lactobacillius 1 cap PO q12h Uncontrolled Diabetes A1C- 16.6 ISS sliding scale Hypoglycemic protocol; ACHS Hypertension Zestril 2.5mg po daily Hyperlipidemia Crestor 5mg po HS Depression Psychiatry: Dr. Miller consulted- no intervention at this time Anemia Iron studies suggestive of anemia of chronic disease Patient is asymptomatic and hemodynamically stable PPx: DVT ppx: SCDS only on left leg GI ppx: PGY-1 Frederick Erazo Medical management discussed with Dr. Henderosn
--- NOTE | 2018-09-07 00:39 | CP.PCM.PN ---
<Romero Gunn - Last Filed: 09/07/18 00:34> Subjective - Date & Time of Evaluation Date of Evaluation: 09/07/18 Time of Evaluation: 00:34 - Subjective Subjective: HOSPITALIST SERVICE Pt seen and examined at bedside, still complains of soreness, no acute events overnight, denies fc nv sob cp Objective - Vital Signs/Intake and Output Vital Signs (last 24 hours): Temp Pulse Resp BP Pulse Ox 98.2 F 93 H 20 154/85 H 99 09/06/18 08:00 09/06/18 08:00 09/06/18 08:00 09/06/18 08:00 09/06/18 08:00 Intake and Output: 09/06/18 09/07/18 18:59 06:59 Intake Total 700 Balance 700 - Medications Medications: Current Medications Acetaminophen (Tylenol 325mg Tab) 325 mg PO Q6 PRN PRN Reason: Pain, Mild (1-3) Acetaminophen (Tylenol 325mg Tab) 650 mg PO Q6 PRN PRN Reason: Pain, moderate (4-7) Dextrose (Dextrose 50% Inj) 0 ml IV STAT PRN; Protocol PRN Reason: Hypoglycemia Protocol Dextrose (Glutose 15) 0 gm PO ONCE PRN; Protocol PRN Reason: Hypoglycemia Protocol Glucagon (Glucagen Diagnostic Kit) 0 mg IM STAT PRN; Protocol PRN Reason: Hypoglycemia Protocol Heparin Sodium (Porcine) (Heparin) 5,000 units SC Q8 [facility] Last Admin: 09/06/18 21:38 Dose: 5,000 units Vancomycin/Sodium Chloride (Vancomycin 1 Gm/Ns 200 Ml) 1 gm in 200 mls @ 166.6 mls/hr IVPB Q12H [facility]; Protocol Stop: 09/11/18 10:01 Last Admin: 09/06/18 21:51 Dose: 166.6 mls/hr Dextrose (Dextrose 5% In Water 1000 Ml) 1,000 mls @ 0 mls/hr IV .Q0M PRN; Protocol PRN Reason: Hypoglycemia Protocol Piperacillin Sod/Tazobactam Sod (Zosyn 3.375 Gm Iv Premix) 3.375 gm in 50 mls @ 200 mls/hr IVPB Q6H [facility]; Protocol Last Admin: 09/06/18 21:09 Dose: 200 mls/hr Influenza Virus Vaccine (Fluzone Quad [id number]) 60 mcg IM .ONCE ONE Stop: 09/07/18 10:01 Insulin Human Regular (Novolin R) 0 unit SC ACHS [facility]; Protocol Last Admin: 09/06/18 21:38 Dose: 2 units Lactobacillus Acidophilus (Bacid Acidophilus) 1 cap PO Q12H [facility] Last Admin: 09/06/18 18:03 Dose: 1 cap Lisinopril (Zestril) 2.5 mg PO DAILY [facility] Last Admin: 09/06/18 11:37 Dose: 2.5 mg Oxycodone HCl (Oxycodone Immediate Release Tab) 5 mg PO Q6 PRN PRN Reason: Pain, severe (8-10) Last Admin: 09/06/18 15:20 Dose: 5 mg Pneumococcal Polyvalent Vaccine (Pneumovax 23 Vaccine) 0.5 ml IM .ONCE ONE Stop: 09/07/18 10:01 Rosuvastatin Calcium (Crestor) 5 mg PO HS [facility] Last Admin: 09/06/18 21:45 Dose: 5 mg - Labs Labs: 09/06/18 07:25 09/06/18 07:25 PT 10.7 SECONDS (9.7-12.2) 09/05/18 20:16 INR 1.0 09/05/18 20:16 APTT 34 SECONDS (21-34) 09/05/18 20:16 - Additional Findings Additional findings: - Constitutional Appears: Non-toxic, No Acute Distress - Head Exam Head Exam: ATRAUMATIC, NORMOCEPHALIC - Eye Exam Eye Exam: EOMI - ENT Exam ENT Exam: Mucous Membranes Moist - Respiratory Exam Respiratory Exam: NORMAL BREATHING PATTERN, Clear to Ascultation. absent: rhonchi, wheezes, crackles - Cardiovascular Exam Cardiovascular Exam: +S1, +S2 - GI/Abdominal Exam GI & Abdominal Exam: Soft. absent: Distended, Firm, Guarding, Rigid, Tenderness - Extremities Exam Additional comments: right lower extremity calf with ulcerated lesion draining purulent fluid - Neurological Exam Neurological exam: Alert, Oriented x3 - Psychiatric Exam Psychiatric exam: Normal Affect, Normal Mood - Skin Skin Exam: Dry, Intact Assessment and Plan - Assessment and Plan (Free Text) Assessment: Patient is a 43 yo male w/ PMH of depression, hyperlipidemia, and uncontrolled diabetes is admitted to hospital for treatment of abscess with surrounding cellulitis of the right calf. Psych, Surgery, Infectious Disease was consulted. Patient was treated with Vanc/Zosyn. Patient had elevated blood pressure readings so Zestril was initiated. Plan: Abscess with Surrounding Cellulitis Zosyn/Vanc for IV abx coverage Wound culture pending MRI of lower extremity pending Surgery Consulted- Dr. Daley: bedside I&D Oxycodone 5mg PO q6 PRN for pain Acetaminophen 325mg/650mg PO q6 PRN for pain Lactobacillius 1 cap PO q12h Uncontrolled Diabetes A1C- 16.6 ISS sliding scale Hypoglycemic protocol; ACHS Hypertension Zestril 2.5mg po daily Hyperlipidemia Crestor 5mg po HS Depression Psychiatry: Dr. Miller consulted- no intervention at this time Anemia Iron studies suggestive of anemia of chronic disease Patient is asymptomatic and hemodynamically stable PPx: DVT ppx: SCDS only on left leg GI ppx: PGY-1 C Velia Medical management discussed with Dr. Henderson <Gena Dugan - Last Filed: 09/07/18 17:03> Objective - Vital Signs/Intake and Output Vital Signs (last 24 hours): Temp Pulse Resp BP Pulse Ox 98.2 F 94 H 20 136/80 98 09/07/18 15:00 09/07/18 15:00 09/07/18 15:00 09/07/18 15:00 09/07/18 15:00 Intake and Output: 09/07/18 09/07/18 06:59 18:59 Intake Total 700 300 Balance 700 300 - Medications Medications: Current Medications Acetaminophen (Tylenol 325mg Tab) 325 mg PO Q6 PRN PRN Reason: Pain, Mild (1-3) Acetaminophen (Tylenol 325mg Tab) 650 mg PO Q6 PRN PRN Reason: Pain, moderate (4-7) Dextrose (Dextrose 50% Inj) 0 ml IV STAT PRN; Protocol PRN Reason: Hypoglycemia Protocol Dextrose (Glutose 15) 0 gm PO ONCE PRN; Protocol PRN Reason: Hypoglycemia Protocol Glucagon (Glucagen Diagnostic Kit) 0 mg IM STAT PRN; Protocol PRN Reason: Hypoglycemia Protocol Heparin Sodium (Porcine) (Heparin) 5,000 units SC Q8 [facility] Last Admin: 09/07/18 14:30 Dose: 5,000 units Dextrose (Dextrose 5% In Water 1000 Ml) 1,000 mls @ 0 mls/hr IV .Q0M PRN; Protocol PRN Reason: Hypoglycemia Protocol Piperacillin Sod/Tazobactam Sod (Zosyn 3.375 Gm Iv Premix) 3.375 gm in 50 mls @ 200 mls/hr IVPB Q6H [facility]; Protocol Vancomycin/Sodium Chloride (Vancomycin 1 Gm/Ns 200 Ml) 1 gm in 200 mls @ 166.6 mls/hr IVPB Q12H [facility]; Protocol Stop: 09/12/18 22:01 Insulin Human Regular (Novolin R) 0 unit SC ACHS [facility]; Protocol Last Admin: 09/07/18 12:00 Dose: 10 units Lactobacillus Acidophilus (Bacid Acidophilus) 1 cap PO Q12H [facility] Last Admin: 09/07/18 06:42 Dose: 1 cap Lisinopril (Zestril) 2.5 mg PO DAILY [facility] Last Admin: 09/07/18 11:00 Dose: 2.5 mg Oxycodone HCl (Oxycodone Immediate Release Tab) 5 mg PO Q6 PRN PRN Reason: Pain, severe (8-10) Last Admin: 09/06/18 15:20 Dose: 5 mg Rosuvastatin Calcium (Crestor) 5 mg PO HS [facility] Last Admin: 09/06/18 21:45 Dose: 5 mg - Labs Labs: 09/07/18 06:28 09/07/18 06:28 PT 10.7 SECONDS (9.7-12.2) 09/05/18 20:16 INR 1.0 09/05/18 20:16 APTT 34 SECONDS (21-34) 09/05/18 20:16 Attending/Attestation - Attestation I have personally seen and examined this patient.: Yes I have fully participated in the care of the patient.: Yes I have reviewed all pertinent clinical information, including history, physical exam and plan: Yes Notes (Text): Seen and examined patient was sleeping without complain,leg cellultis and swelling is improving wound culture positive for MRSA. continue Vancomycin and Zosyn as per DR Langston patient sugar is high this afternoon,Had low sugar yesterday morning and that night.Fluctiating sugar/brittle DM? His HA1c 16. I will add lantus 10 units and give bedtime snacks to avoid hypoglycemia. Ask Dr Stallworth for consult I agree with the resident's documentation
[2018-09-07] MEDS: Piperacill/Tazo 3.375gm in Dex 3.375 GM/50 ML BAG IVPB SCH ×4 (02:37→20:22)
[2018-09-07 06:36] LABS: BASO % 0.4 % (0.0-2.0); EOS # 0.1 K/uL (0.0-0.7); HEMOGLOBIN 8.6 g/dL (12.0-18.0); LYMPH # 2.1 K/uL (1.0-4.3); LYMPH % 27.3 % (20.0-40.0); MEAN CELL VOLUME 90.5 fL (80.0-94.0); MEAN CORPUSCULAR HEMOGLOBIN 30.8 pg (27.0-31.0); MONO # 0.8 K/uL (0.0-0.8); MONO % 10.5 % (0.0-10.0); NEUT # 4.8 K/uL (1.8-7.0); NEUT % 60.8 % (50.0-75.0); RBC 2.78 Mil/uL (4.40-5.90); RED CELL DISTRIBUTION WIDTH 12.7 % (11.5-14.5); WHITE BLOOD COUNT 7.9 K/uL (4.8-10.8)
[2018-09-07] MEDS: Lactobacillus Acidophilus 500 MU Cap PO SCH ×2 (06:42→19:53)
[2018-09-07 07:36] LABS: ALB/GLOB RATIO 0.7 (1.0-2.1); ALBUMIN 2.5 g/dL (3.5-5.0); ALT/SGPT 23 U/L (21-72); AST/SGOT 29 U/L (17-59); BLOOD UREA NITROGEN 22 mg/dL (9-20); CALCIUM 8.1 mg/dl (8.6-10.4); GFR NON-AFRICAN AMERICAN 51
--- NOTE | 2018-09-07 08:48 | CP.PCM.PN ---
Subjective - Date & Time of Evaluation Date of Evaluation: 09/07/18 Time of Evaluation: 08:46 - Subjective Subjective: Surgery: Dr. Latif Pt seen and examined. No acute overnight events. States he feels ok, continues to have drainage from Right leg abscess. Denies fevers/chills. Tolerating diet. Objective - Vital Signs/Intake and Output Vital Signs (last 24 hours): Temp Pulse Resp BP Pulse Ox 98.7 F 97 H 20 129/80 97 09/07/18 08:00 09/07/18 08:00 09/07/18 08:00 09/07/18 08:00 09/07/18 08:00 Intake and Output: 09/07/18 09/07/18 06:59 18:59 Intake Total 700 300 Balance 700 300 - Medications Medications: Current Medications Acetaminophen (Tylenol 325mg Tab) 325 mg PO Q6 PRN PRN Reason: Pain, Mild (1-3) Acetaminophen (Tylenol 325mg Tab) 650 mg PO Q6 PRN PRN Reason: Pain, moderate (4-7) Dextrose (Dextrose 50% Inj) 0 ml IV STAT PRN; Protocol PRN Reason: Hypoglycemia Protocol Dextrose (Glutose 15) 0 gm PO ONCE PRN; Protocol PRN Reason: Hypoglycemia Protocol Glucagon (Glucagen Diagnostic Kit) 0 mg IM STAT PRN; Protocol PRN Reason: Hypoglycemia Protocol Heparin Sodium (Porcine) (Heparin) 5,000 units SC Q8 [facility] Last Admin: 09/07/18 05:39 Dose: 5,000 units Vancomycin/Sodium Chloride (Vancomycin 1 Gm/Ns 200 Ml) 1 gm in 200 mls @ 166.6 mls/hr IVPB Q12H [facility]; Protocol Stop: 09/11/18 10:01 Last Admin: 09/06/18 21:51 Dose: 166.6 mls/hr Dextrose (Dextrose 5% In Water 1000 Ml) 1,000 mls @ 0 mls/hr IV .Q0M PRN; Protocol PRN Reason: Hypoglycemia Protocol Piperacillin Sod/Tazobactam Sod (Zosyn 3.375 Gm Iv Premix) 3.375 gm in 50 mls @ 200 mls/hr IVPB Q6H [facility]; Protocol Last Admin: 09/07/18 02:37 Dose: 200 mls/hr Influenza Virus Vaccine (Fluzone Quad [id number]) 60 mcg IM .ONCE ONE Stop: 09/07/18 10:01 Insulin Human Regular (Novolin R) 0 unit SC ACHS [facility]; Protocol Last Admin: 09/06/18 21:38 Dose: 2 units Lactobacillus Acidophilus (Bacid Acidophilus) 1 cap PO Q12H [facility] Last Admin: 09/07/18 06:42 Dose: 1 cap Lisinopril (Zestril) 2.5 mg PO DAILY [facility] Last Admin: 09/06/18 11:37 Dose: 2.5 mg Oxycodone HCl (Oxycodone Immediate Release Tab) 5 mg PO Q6 PRN PRN Reason: Pain, severe (8-10) Last Admin: 09/06/18 15:20 Dose: 5 mg Pneumococcal Polyvalent Vaccine (Pneumovax 23 Vaccine) 0.5 ml IM .ONCE ONE Stop: 09/07/18 10:01 Rosuvastatin Calcium (Crestor) 5 mg PO HS [facility] Last Admin: 09/06/18 21:45 Dose: 5 mg - Labs Labs: 09/07/18 06:28 09/07/18 06:28 PT 10.7 SECONDS (9.7-12.2) 09/05/18 20:16 INR 1.0 09/05/18 20:16 APTT 34 SECONDS (21-34) 09/05/18 20:16 - Constitutional Appears: Well, No Acute Distress - Head Exam Head Exam: ATRAUMATIC, NORMOCEPHALIC - ENT Exam ENT Exam: Mucous Membranes Moist - Respiratory Exam Respiratory Exam: NORMAL BREATHING PATTERN - Cardiovascular Exam Cardiovascular Exam: RRR - GI/Abdominal Exam GI & Abdominal Exam: Soft - Extremities Exam Additional comments: R LE with spontaneously draining abscess on lateral calf, purulent drainage expressed from wound with necrotic tissue borders - Neurological Exam Neurological Exam: Alert, Awake, Oriented x3 - Skin Skin Exam: Dry, Warm Assessment and Plan - Assessment and Plan (Free Text) Assessment: 43M with R LE abscess; spontaneously draining Plan: - cont IV ABX; ID on board - f/u wound C&S - monitor wound site - d/w Dr. Salomon Up
[2018-09-07] MEDS ORDERED: Pneumococcal 23-Valent Vaccine IM ONE (10:00)
[2018-09-07] MEDS ORDERED: Influenza Vaccine 60 MCG/0.5 ML SYR (3 yr & up) IM ONE (10:00)
[2018-09-07] MEDS: (Novolin R) Insulin Human Regular 100 units/ml vial SC SCH ×4 (10:59→21:12)
--- NOTE | 2018-09-07 12:42 | MRI ---
MRI right tibia and fibula HISTORY: Abscess. Comparison: CT dated 09/05/2018 Technique: Multi-echo multiplanar sequences were performed through the right tibia and fibula without the use of intravenous contrast. Findings: Prominent reticulation and edema seen within the circumferential subcutaneous soft tissues consistent with cellulitis. More confluent lobulated collection of fluid intensity signal seen within the lateral subcutaneous soft tissues measuring 4.1 x 1.1 x 4.3 centimeters seen at the level of the mid tibia and fibula concerning for developing abscess and or phlegmon collection. Additional less organized but confluent fluid and edema seen within the posterior lateral subcutaneous soft tissues which appear somewhat contiguous with the lateral collection measuring 3.1 x 0.8 centimeters also concerning for a phlegmon and/or developing abscess collection. Extensive edema with increased signal seen within anterolateral compartment musculature with increased T2 and STIR signal noted within the anterolateral compartment musculature as well as within the musculature surrounding the proximal and mid fibula including the peroneus longus musculature suggestive for a myositis possibly related to acute infectious change. The signal abnormality within the visualized musculature appears to extend to the osseous cortex of the proximal and mid fibula without gross signal changes within the osseous marrow. Impression: Prominent reticulation and edema seen within the circumferential subcutaneous soft tissues consistent with cellulitis. More confluent lobulated collection of fluid intensity signal seen within the lateral subcutaneous soft tissues measuring 4.1 x 1.1 x 4.3 centimeters seen at the level of the mid tibia and fibula concerning for developing abscess and or phlegmon collection. Additional less organized but confluent fluid and edema seen within the posterior lateral subcutaneous soft tissues which appear somewhat contiguous with the lateral collection measuring 3.1 x 0.8 centimeters also concerning for a phlegmon and/or developing abscess collection. Extensive edema with increased signal seen within anterolateral compartment musculature with increased T2 and STIR signal noted within the anterolateral compartment musculature as well as within the musculature surrounding the proximal and mid fibula including the peroneus longus musculature suggestive for a myositis possibly related to acute infectious change. The signal abnormality within the visualized musculature appears to extend to the osseous cortex of the proximal and mid fibula without gross signal changes within the osseous marrow.
[2018-09-07] MEDS: Vancomycin 1 gm/NS 200 ml 1 GM/200 ML BAG IVPB SCH ×2 (14:29→21:04)
--- NOTE | 2018-09-07 16:21 | CP.PCM.CON ---
History of Present Illness - History of Present Illness History of Present Illness: dictated Past Patient History - Past Medical History & Family History Past Medical History?: Yes - Past Social History Smoking Status: Never Smoked Alcohol: Social Drugs: Denies - CARDIAC Hx Cardiac Disorders: No - PULMONARY Hx Respiratory Disorders: No - NEUROLOGICAL Hx Neurological Disorder: No - HEENT Hx HEENT Problems: Yes Hx Cataracts: Yes - RENAL Hx Chronic Kidney Disease: No - ENDOCRINE/METABOLIC Hx Endocrine Disorders: Yes Hx Diabetes Mellitus Type 2: Yes (non compliant) - HEMATOLOGICAL/ONCOLOGICAL Hx Blood Disorders: No - INTEGUMENTARY Hx Dermatological Problems: No - MUSCULOSKELETAL/RHEUMATOLOGICAL Hx Musculoskeletal Disorders: No - GASTROINTESTINAL Hx Gastrointestinal Disorders: No - GENITOURINARY/GYNECOLOGICAL Hx Genitourinary Disorders: No - PSYCHIATRIC Hx Depression: Yes (pt experiences depression as a result of unemployment since 2011) Hx Substance Use: No - SURGICAL HISTORY Hx Surgeries: No - ANESTHESIA Hx Anesthesia: No Meds Allergies/Adverse Reactions: Allergies Allergy/AdvReac Type Severity Reaction Status Date / Time No Known Allergies Allergy Verified 09/05/18 19:50 - Medications Medications: Current Medications Acetaminophen (Tylenol 325mg Tab) 325 mg PO Q6 PRN PRN Reason: Pain, Mild (1-3) Acetaminophen (Tylenol 325mg Tab) 650 mg PO Q6 PRN PRN Reason: Pain, moderate (4-7) Dextrose (Dextrose 50% Inj) 0 ml IV STAT PRN; Protocol PRN Reason: Hypoglycemia Protocol Dextrose (Glutose 15) 0 gm PO ONCE PRN; Protocol PRN Reason: Hypoglycemia Protocol Glucagon (Glucagen Diagnostic Kit) 0 mg IM STAT PRN; Protocol PRN Reason: Hypoglycemia Protocol Heparin Sodium (Porcine) (Heparin) 5,000 units SC Q8 [facility] Last Admin: 09/07/18 14:30 Dose: 5,000 units Dextrose (Dextrose 5% In Water 1000 Ml) 1,000 mls @ 0 mls/hr IV .Q0M PRN; Protocol PRN Reason: Hypoglycemia Protocol Piperacillin Sod/Tazobactam Sod (Zosyn 3.375 Gm Iv Premix) 3.375 gm in 50 mls @ 200 mls/hr IVPB Q6H [facility]; Protocol Vancomycin/Sodium Chloride (Vancomycin 1 Gm/Ns 200 Ml) 1 gm in 200 mls @ 166.6 mls/hr IVPB Q12H [facility]; Protocol Stop: 09/12/18 22:01 Insulin Human Regular (Novolin R) 0 unit SC ACHS [facility]; Protocol Last Admin: 09/07/18 12:00 Dose: 10 units Lactobacillus Acidophilus (Bacid Acidophilus) 1 cap PO Q12H [facility] Last Admin: 09/07/18 06:42 Dose: 1 cap Lisinopril (Zestril) 2.5 mg PO DAILY [facility] Last Admin: 09/07/18 11:00 Dose: 2.5 mg Oxycodone HCl (Oxycodone Immediate Release Tab) 5 mg PO Q6 PRN PRN Reason: Pain, severe (8-10) Last Admin: 09/06/18 15:20 Dose: 5 mg Rosuvastatin Calcium (Crestor) 5 mg PO HS [facility] Last Admin: 09/06/18 21:45 Dose: 5 mg Results - Vital Signs Recent Vital Signs: Last Vital Signs Temp 98.2 F 09/07/18 15:00 Pulse 94 H 09/07/18 15:00 Resp 20 09/07/18 15:00 BP 136/80 09/07/18 15:00 Pulse Ox 98 09/07/18 15:00 - Labs Result Diagrams: 09/07/18 06:28 09/07/18 06:28 Labs: Laboratory Results - last 24 hr 09/06/18 09/06/18 09/07/18 16:38 21:00 03:34 WBC RBC Hgb Hct MCV MCH MCHC RDW Plt Count MPV Neut % (Auto) Lymph % (Auto) [place] % (Auto) Eos % (Auto) Baso % (Auto) Neut # (Auto) Lymph # (Auto) [place] # (Auto) Eos # (Auto) Baso # (Auto) Sodium Potassium Chloride Carbon Dioxide Anion Gap BUN Creatinine Est GFR ( Amer) Est GFR (Non-Af Amer) POC Glucose (mg/dL) 267 H 303 H 257 H Random Glucose Calcium Phosphorus Magnesium Total Bilirubin AST ALT Alkaline Phosphatase Total Protein Albumin Globulin Albumin/Globulin Ratio Vancomycin Trough 09/07/18 09/07/18 09/07/18 06:28 06:28 07:17 WBC 7.9 RBC 2.78 L Hgb 8.6 L Hct 25.1 L MCV 90.5 MCH 30.8 MCHC 34.0 RDW 12.7 Plt Count 326 MPV 9.0 Neut % (Auto) 60.8 Lymph % (Auto) 27.3 [place] % (Auto) 10.5 H Eos % (Auto) 1.0 Baso % (Auto) 0.4 Neut # (Auto) 4.8 Lymph # (Auto) 2.1 [place] # (Auto) 0.8 Eos # (Auto) 0.1 Baso # (Auto) 0.0 Sodium 132 Potassium 4.6 Chloride 98 Carbon Dioxide 27 Anion Gap 11 BUN 22 H Creatinine 1.5 Est GFR ( Amer) > 60 Est GFR (Non-Af Amer) 51 POC Glucose (mg/dL) 316 H Random Glucose 275 H Calcium 8.1 L Phosphorus 3.1 Magnesium 2.0 Total Bilirubin 0.4 AST 29 ALT 23 Alkaline Phosphatase 300 H Total Protein 6.2 L Albumin 2.5 L Globulin 3.6 Albumin/Globulin Ratio 0.7 L Vancomycin Trough 09/07/18 09/07/18 11:02 11:36 WBC RBC Hgb Hct MCV MCH MCHC RDW Plt Count MPV Neut % (Auto) Lymph % (Auto) [place] % (Auto) Eos % (Auto) Baso % (Auto) Neut # (Auto) Lymph # (Auto) [place] # (Auto) Eos # (Auto) Baso # (Auto) Sodium Potassium Chloride Carbon Dioxide Anion Gap BUN Creatinine Est GFR ( Amer) Est GFR (Non-Af Amer) POC Glucose (mg/dL) 414 H* Random Glucose Calcium Phosphorus Magnesium Total Bilirubin AST ALT Alkaline Phosphatase Total Protein Albumin Globulin Albumin/Globulin Ratio Vancomycin Trough 15.5 H
[2018-09-07] MEDS ORDERED: Dextrose 50% SYRINGE Inj (50 ml) IV PRN (17:06)
[2018-09-07] MEDS ORDERED: Glucagon Recombinant 1 mg Inj IM PRN (17:06)
[2018-09-07] MEDS: Sodium Chloride 0.45% 1,000 ML IV SCH (21:02)
[2018-09-07] MEDS ORDERED: (Novolin N) Insulin Human Isophane (NPH) 100 u/ml 10 ml vial SC SCH (22:00)
--- NOTE | 2018-09-08 00:20 | CP.PCM.PN ---
<Romero Gunn - Last Filed: 09/08/18 00:21> Subjective - Date & Time of Evaluation Date of Evaluation: 09/08/18 Time of Evaluation: 00:19 - Subjective Subjective: HOSPITALIST SERVICE Pt seen and examined at bedside. Pt denies cp fc nv sob, no acute events overnight. Objective - Vital Signs/Intake and Output Vital Signs (last 24 hours): Temp Pulse Resp BP Pulse Ox 98.2 F 94 H 20 136/80 98 09/07/18 15:00 09/07/18 15:00 09/07/18 15:00 09/07/18 15:00 09/07/18 15:00 Intake and Output: 09/07/18 09/08/18 18:59 06:59 Intake Total 300 350 Balance 300 350 - Medications Medications: Current Medications Acetaminophen (Tylenol 325mg Tab) 325 mg PO Q6 PRN PRN Reason: Pain, Mild (1-3) Acetaminophen (Tylenol 325mg Tab) 650 mg PO Q6 PRN PRN Reason: Pain, moderate (4-7) Dextrose (Dextrose 50% Inj) 0 ml IV STAT PRN; Protocol PRN Reason: Hypoglycemia Protocol Dextrose (Glutose 15) 0 gm PO ONCE PRN; Protocol PRN Reason: Hypoglycemia Protocol Dextrose (Dextrose 50% Inj) 0 ml IV STAT PRN; Protocol PRN Reason: Hypoglycemia Protocol Dextrose (Glutose 15) 0 gm PO ONCE PRN; Protocol PRN Reason: Hypoglycemia Protocol Glipizide (Glucotrol) 10 mg PO ACBD [facility] Glucagon (Glucagen Diagnostic Kit) 0 mg IM STAT PRN; Protocol PRN Reason: Hypoglycemia Protocol Glucagon (Glucagen Diagnostic Kit) 0 mg IM STAT PRN; Protocol PRN Reason: Hypoglycemia Protocol Heparin Sodium (Porcine) (Heparin) 5,000 units SC Q8 [facility] Last Admin: 09/07/18 21:08 Dose: 5,000 units Dextrose (Dextrose 5% In Water 1000 Ml) 1,000 mls @ 0 mls/hr IV .Q0M PRN; Protocol PRN Reason: Hypoglycemia Protocol Piperacillin Sod/Tazobactam Sod (Zosyn 3.375 Gm Iv Premix) 3.375 gm in 50 mls @ 200 mls/hr IVPB Q6H [facility]; Protocol Last Admin: 09/07/18 20:22 Dose: 200 mls/hr Vancomycin/Sodium Chloride (Vancomycin 1 Gm/Ns 200 Ml) 1 gm in 200 mls @ 166.6 mls/hr IVPB Q12H [facility]; Protocol Stop: 09/12/18 22:01 Last Admin: 09/07/18 21:04 Dose: 166.6 mls/hr Dextrose (Dextrose 5% In Water 1000 Ml) 1,000 mls @ 0 mls/hr IV .Q0M PRN; Protocol PRN Reason: Hypoglycemia Protocol Sodium Chloride (Sodium Chloride 0.45%) 1,000 mls @ 100 mls/hr IV .Q10H [facility] Last Admin: 09/07/18 21:02 Dose: 100 mls/hr Insulin Human NPH (Novolin N) 14 unit SC [facility] Insulin Human Regular (Novolin R) 0 unit SC ACHS [facility]; Protocol Last Admin: 09/07/18 21:12 Dose: Not Given Lactobacillus Acidophilus (Bacid Acidophilus) 1 cap PO Q12H [facility] Last Admin: 09/07/18 19:53 Dose: 1 cap Lisinopril (Zestril) 2.5 mg PO DAILY [facility] Last Admin: 09/07/18 11:00 Dose: 2.5 mg Metformin HCl (Glucophage) 500 mg PO BID [facility] Oxycodone HCl (Oxycodone Immediate Release Tab) 5 mg PO Q6 PRN PRN Reason: Pain, severe (8-10) Last Admin: 09/06/18 15:20 Dose: 5 mg Rosuvastatin Calcium (Crestor) 5 mg PO [facility] Last Admin: 09/06/18 21:45 Dose: 5 mg - Labs Labs: 09/07/18 06:28 09/07/18 06:28 PT 10.7 SECONDS (9.7-12.2) 09/05/18 20:16 INR 1.0 09/05/18 20:16 APTT 34 SECONDS (21-34) 09/05/18 20:16 - Additional Findings Additional findings: - Constitutional Appears: Non-toxic, No Acute Distress - Head Exam Head Exam: ATRAUMATIC, NORMOCEPHALIC - Eye Exam Eye Exam: EOMI - ENT Exam ENT Exam: Mucous Membranes Moist - Respiratory Exam Respiratory Exam: NORMAL BREATHING PATTERN, Clear to Ascultation. absent: r honchi, wheezes, crackles - Cardiovascular Exam Cardiovascular Exam: +S1, +S2 - GI/Abdominal Exam GI & Abdominal Exam: Soft. absent: Distended, Firm, Guarding, Rigid, Tenderness - Extremities Exam Additional comments: right lower extremity calf with ulcerated lesion draining purulent fluid - Neurological Exam Neurological exam: Alert, Oriented x3 - Psychiatric Exam Psychiatric exam: Normal Affect, Normal Mood - Skin Skin Exam: Dry, Intact Assessment and Plan - Assessment and Plan (Free Text) Assessment: Patient is a 43 yo male w/ PMH of depression, hyperlipidemia, and uncontrolled diabetes is admitted to hospital for treatment of abscess with surrounding cellulitis of the right calf. Psych, Surgery, Infectious Disease was consulted. Patient was treated with Vanc/Zosyn. Patient had elevated blood pressure readings so Zestril was initiated. Plan: Abscess with Surrounding Cellulitis Zosyn/Vanc for IV abx coverage Wound culture pending MRI of lower extremity pending Surgery Consulted- Dr. Daley: bedside I&D Oxycodone 5mg PO q6 PRN for pain Acetaminophen 325mg/650mg PO q6 PRN for pain Lactobacillius 1 cap PO q12h Uncontrolled Diabetes A1C- 16.6 ISS sliding scale Hypoglycemic protocol; ACHS Lantus [address] Stallworth consulted f/u recs Hypertension Zestril 2.5mg po daily Hyperlipidemia Crestor 5mg po HS Depression Psychiatry: Dr. Miller consulted- no intervention at this time Anemia Iron studies suggestive of anemia of chronic disease Patient is asymptomatic and hemodynamically stable PPx: DVT ppx: SCDS only on left leg GI ppx: PGY-1 C Velia <Lupe Coy V - Last Filed: 09/08/18 16:17> Objective - Vital Signs/Intake and Output Vital Signs (last 24 hours): Temp Pulse Resp BP Pulse Ox 99.4 F 90 20 140/89 97 09/08/18 08:28 09/08/18 08:28 09/08/18 08:28 09/08/18 08:28 09/08/18 08:28 Intake and Output: 09/08/18 09/08/18 06:59 18:59 Intake Total 1450 Output Total 750 Balance 700 - Medications Medications: Current Medications Acetaminophen (Tylenol 325mg Tab) 325 mg PO Q6 PRN PRN Reason: Pain, Mild (1-3) Acetaminophen (Tylenol 325mg Tab) 650 mg PO Q6 PRN PRN Reason: Pain, moderate (4-7) Dextrose (Dextrose 50% Inj) 0 ml IV STAT PRN; Protocol PRN Reason: Hypoglycemia Protocol Dextrose (Glutose 15) 0 gm PO ONCE PRN; Protocol PRN Reason: Hypoglycemia Protocol Dextrose (Dextrose 50% Inj) 0 ml IV STAT PRN; Protocol PRN Reason: Hypoglycemia Protocol Dextrose (Glutose 15) 0 gm PO ONCE PRN; Protocol PRN Reason: Hypoglycemia Protocol Glipizide (Glucotrol) 10 mg PO ACBD [facility] Last Admin: 09/08/18 08:31 Dose: 10 mg Glucagon (Glucagen Diagnostic Kit) 0 mg IM STAT PRN; Protocol PRN Reason: Hypoglycemia Protocol Glucagon (Glucagen Diagnostic Kit) 0 mg IM STAT PRN; Protocol PRN Reason: Hypoglycemia Protocol Heparin Sodium (Porcine) (Heparin) 5,000 units SC Q8 [facility] Last Admin: 09/08/18 13:16 Dose: 5,000 units Dextrose (Dextrose 5% In Water 1000 Ml) 1,000 mls @ 0 mls/hr IV .Q0M PRN; Protocol PRN Reason: Hypoglycemia Protocol Piperacillin Sod/Tazobactam Sod (Zosyn 3.375 Gm Iv Premix) 3.375 gm in 50 mls @ 200 mls/hr IVPB Q6H [facility]; Protocol Last Admin: 09/08/18 08:32 Dose: 200 mls/hr Vancomycin/Sodium Chloride (Vancomycin 1 Gm/Ns 200 Ml) 1 gm in 200 mls @ 166.6 mls/hr IVPB Q12H [facility]; Protocol Stop: 09/12/18 22:01 Last Admin: 09/08/18 10:38 Dose: 166.6 mls/hr Dextrose (Dextrose 5% In Water 1000 Ml) 1,000 mls @ 0 mls/hr IV .Q0M PRN; Protocol PRN Reason: Hypoglycemia Protocol Sodium Chloride (Sodium Chloride 0.45%) 1,000 mls @ 100 mls/hr IV .Q10H [facility] Last Admin: 09/08/18 08:32 Dose: Not Given Insulin Human NPH (Novolin N) 20 unit SC [facility] Insulin Human Regular (Novolin R) 0 unit SC ACHS [facility]; Protocol Last Admin: 09/08/18 12:00 Dose: 3 units Lactobacillus Acidophilus (Bacid Acidophilus) 1 cap PO Q12H [facility] Last Admin: 09/08/18 07:01 Dose: 1 cap Lisinopril (Zestril) 2.5 mg PO DAILY [facility] Last Admin: 09/08/18 10:37 Dose: 2.5 mg Metformin HCl (Glucophage) 500 mg PO BID [facility] Last Admin: 09/08/18 10:34 Dose: 500 mg Oxycodone HCl (Oxycodone Immediate Release Tab) 5 mg PO Q6 PRN PRN Reason: Pain, severe (8-10) Last Admin: 09/06/18 15:20 Dose: 5 mg Rosuvastatin Calcium (Crestor) 5 mg PO HS [facility] Last Admin: 09/06/18 21:45 Dose: 5 mg - Labs Labs: 09/08/18 07:05 09/08/18 07:06 PT 10.7 SECONDS (9.7-12.2) 09/05/18 20:16 INR 1.0 09/05/18 20:16 APTT 34 SECONDS (21-34) 09/05/18 20:16 Attending/Attestation - Attestation I have personally seen and examined this patient.: Yes I have fully participated in the care of the patient.: Yes I have reviewed all pertinent clinical information, including history, physical exam and plan: Yes Notes (Text): Patient seen, examined and case discussed with day-time resident. I met for the patient first time today, patient noted he had drainage coming from his calf. Patient is also irritated because he has not slept given his roommate is hard of hearing and has the television quite loud. Patient is awaiting to be on contact isolation; i has spoken with his nurse given he threatened to AMA given the lack of sleep primarily. Patient reports history of uncontrolled diabetes. Discussed with endocrinology, initiall long acting set to 20 units for tonight will give half the dose tonight. initial EKG noted for early repolarization; repeat EKG today. Spoke with surgery resident today, recommended for OR for further debridement would be add on case for tomorrow if patient allows. Assessment/Plan 1) MRSA Abscess; MRSA Cellulitis Assessment/plan * Infectious Disease (Dr. Langston) on board-->help appreciated * bedside i&D 09/07 * OR possible 09/09 for further debridement * Surgery (Dr. Nolasco) on board-->help appreciated * Place on contact isolation * Zosyn 3.375g IV Q6H (active since 09/07/18) * Vancomycin 1gm IVQ12H (active since 09/07/18) * Vanco trough: 15.5 * Next vancomycin trough (09/09/18) at 9:30AM * Wound culture (09/05/18) MRSA: Beta hemolytic strep Group B * sensitive to Vancomycin * Blood culture (09/05/17): no growth after 48 hours X2 * MRI (09/07/18): prominent reticulation and edema within the circumferential subcutaneous soft tissues consistent with cellulitis. more confluent lobulated collection of fluid intensity signal seen with lateral subcutanous soft tissues measuring 4.1 X1.1 X4.3 cm mid tibia and fibula with abscess and our phlegmon collection. Confluent fluid and edema seen within the posterior lateral subcutaneous soft tissues which appear somehwat contgious with lateral collectio 3.1 X0.8 CM phlegmon and/or developing abscess collection. Extensive edema with increased signal seen within anterolateral compartment musculature etc. * CT Scan (09/06/18): prominent reticulation and edema within the subq soft tissues at the anterior and lateral aspect of the left lower extremity level of the tibia and fibula consistent with known cellulitis (further findings per report) * Oxycodone 5mg PO q6H pRN severe pain 2) Uncontrolled diabetes; History of Noncompliance Assessment/Plan * A1C- 16.6 * ISS sliding scale * Hypoglycemic protocol; ACHS * Lantus 10 added * Glipizide 10mg PO ACBD * Novolon R 0 unit subqACHS * Novolin N 20 units subqHS * will 1/2 prior to OR and resume post OR 09/09 * Metformin 500mg PO BID * Lisinopril 2.5mg PO daily 3) Hypertension Assessment/Plan * Zestril 2.5mg po daily 4) Hyperlipidemia Assessment/Plan * Crestor 5mg po HS 5) Depression Assessment/Plan * Psychiatry: Dr. Miller consulted- no intervention at this time 6) Anemia Assessment/Plan Iron studies suggestive of anemia of chronic disease Patient is asymptomatic and hemodynamically stable 7) PPx: * DVT ppx: SCDS only on left leg, heparin 5000 units subq 8 * 1/2 NS 70cc/hr Disposition: patient recommended for OR I&D will be an add on case if patient accepts. Patient to continue IV abx and monitoring of his sugars.
--- NOTE | 2018-09-08 00:45 | CON ---
DATE: 09/07/2018 INFECTIOUS DISEASE CONSULT Requested on Mr. Alarcon who is a 43-year-old male. HISTORY OF PRESENT ILLNESS: He has diabetes, depression, and he was admitted with a leg wound on his right calf which developed from a pimple, was growing bigger and bigger, was having discharge from there, developed cellulitis of the full leg and it was erythematous, edematous, and his mother saw his wound and told him to go to the hospital. He denied any fever, no chills. He was seen yesterday, but I was not able to dictate my note consult, I am dictating this today. PAST MEDICAL HISTORY: He has no PMD. He has history of diabetes and depression, and he has not been on any medications, was on metformin before. ALLERGIES: HE IS NOT ALLERGIC TO ANY MEDICINE. MEDICATIONS: He was started on vancomycin 1 g every 12 hours, and he is also on Zosyn. PAST SURGICAL HISTORY: Significant of left cataract surgery in 2014. FAMILY HISTORY: Unknown. SOCIAL HISTORY: He has two to three beers per month. Denies any drug abuse or tobacco abuse, and he moved from [facility] He is staying with his friend. 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 REVIEW OF SYSTEMS: He was also seen by Surgery. PAST MEDICAL HISTORY: He has no history of heart disease. No pulmonary disease. He has history of cataracts. He has no kidney disease. He has diabetes type 2. He has no bleeding disorder. No skin disorders. came in with a cellulitis and an open wound on the calf of his right leg. PHYSICAL EXAMINATION: VITAL SIGNS: I find his temperature is 98.2 today, pulse is 92, blood pressure 136/80, respirations are 20. Yesterday, when I saw, he was afebrile. T-max was 98.2, pulse 93, blood pressure 154/85, respirations 20. GENERAL: He is alert, awake. HEENT: Head is atraumatic, normocephalic. NECK: Supple. LUNGS: Clear. HEART: S1, S2 are regular. ABDOMEN: Soft, nontender. No guarding, no rigidity present. EXTREMITIES: Right leg has decreasing cellulitis and he still has a dressing on the wound. Left leg is unremarkable. LABORATORY DATA: Labs are noted. White count is 10.9, hemoglobin 8.6, hematocrit 25.1, platelet count is 326. BUN is 22, his creatinine is 1.5, and he is on vancomycin 1 g every 12 hours at this time. We will need to monitor it closely. His alk phos is 300, which is high also and wound culture was positive for MRSA and beta-hemolytic group B, so I have left both the drugs on at this time and he has MRSA on the wound which is vancomycin sensitive, Cipro sensitive, clindamycin sensitive, and clindamycin might be our choice. ASSESSMENT AND PLAN: We have to discharge him on antibiotics, but we will wait for his MRI report and for the wound to heal a little bit and also to see the surgical evaluation. Surgery saw yesterday and they said there was a draining abscess, warm compresses, and further recommendation was pending. I am waiting for the report of his MRI. He had a CT on 09/05/2018. The MRI was done yesterday, shows prominent reticulation and edema seen within the circumferential subcutaneous soft tissue consistent with cellulitis, more confluent lobulated collection of fluid, intensity signals within the lateral subcutaneous soft tissue, measures 4.1 x 1.1 x 4.3 at the level of the mid tibia and fibula concerning for developing abscess and phlegmon collection less organized, but confluent and edema seen within the posterior lateral subcutaneous tissue, which appears somewhat contiguous and lateral collection. So, there are two developing abscesses, extensive edema noted within the anterolateral compartment musculature as well as within the musculature surrounding proximal and mid fibula including the peroneal longus musculature suggestive for a myositis, possibly related to acute infectious change. The signal ____ appears to extend to the osseous cortex of the proximal and mid fibula without gross signal changes within the osseous marrow, so it does not look like that he has osteomyelitis, but he does have extensive myositis and abscess formations, so we will continue with these antibiotics at this time and I would be seeing him again on Sunday and at that time, we will see how his wound is doing and what the surgical recommendations are at that point. He is diabetic. He needs to control his sugar and we will follow, and he is also anemic. Ovi Langston MD
--- NOTE | 2018-09-08 01:53 | CON ---
DATE: 09/07/2018 ENDOCRINOLOGY CONSULT LOCATION: Room 351. HISTORY OF PRESENT ILLNESS: This is a 43-year-old male with known history of type 2 diabetes and hypertension, presenting here with right leg cellulitis with underlying abscess, and is now being referred for diabetic evaluation because of persistent hyperglycemic accelerations as noted thereof. Past medical history of type 2 diabetes, previously on metformin given as 1 g b.i.d. and glipizide as 10 mg b.i.d., but apparently ran out of his medications because of insurance constraints. PAST MEDICAL HISTORY: As mentioned above, history of type 2 diabetes on the afore-mentioned drug regimen, history of hypertension, and dyslipidemia. FAMILY HISTORY: Positive for diabetes and hypertension. SOCIAL HISTORY: The patient has a supportive family. No known substance use. He lives with his mother at this time. REVIEW OF SYSTEMS: As mentioned above. Admits to generalized body weakness with episodic bouts of dizziness and lightheadedness and suboptimal energy level. No chest pains or palpitations or PND. His oral intake is variable, but otherwise satisfactory with occasional dyspepsia. Also admits to marked polyuria, nocturia, and polydipsia. Moreover, admits to lower extremity paresthesias with redness and swelling in the right leg as mentioned. PHYSICAL EXAMINATION: GENERAL: Average-built male in no apparent distress. VITAL SIGNS: Blood pressure 140/80, pulse of 100 beats per minute and regular, temperature 98, respirations 20. Height is 5 feet and 6 inches, weight is 145 pounds. HEENT: Head, normocephalic. Eyes anicteric with pink conjunctivae. Funduscopy not possible at this time. Ears, nose, and throat otherwise normal. NECK: Supple. Thyroid gland is normal size. No carotid bruits. No cervical adenopathy. CARDIOPULMONARY: Some adynamic precordium. S1 and S2 are rapid and regular. LUNGS: Clear to auscultation. ABDOMEN: Flat and soft with positive bowel sounds. EXTREMITIES: No peripheral edema. Pulses are +2 bilaterally. LABORATORY DATA: Chemistries: BUN of 22, sodium 132, potassium 4.6, chloride 98, CO2 27, glucose 275, and creatinine 1.5. His glucose levels have ranged from 316-414 mg per dL. ASSESSMENT: This is a 43-year-old male with uncontrolled and decompensated type 2 insulin-requiring diabetes, presenting here with right lower extremity cellulitis and supervening marked hyperglycemic accelerations related to recent drug admission as noted thereof. There is also clinical and biochemical evidence of dehydration and prerenal azotemia as noted. PLAN OF MANAGEMENT: we will restart his IV hydration as ordered and obtain serial chemistries and supplement accordingly as needed. We will initiate a dual oral hypoglycemic drug therapy with glipizide given as 10 mg b.i.d. before meals and metformin at 500 mg b.i.d. after meals as ordered. We will discontinue the Lantus because of the tremendous expense of the medication, which the patient could clearly be unable to purchase on the outpatient. We will change the insulin to the more affordable conventional insulin vials of Novolin NPH given as 14 units subcutaneously at bedtime daily to start tonight. We will titrate accordingly to optimize metabolic control. We will follow and advise accordingly. Laura Stallworth MD
[2018-09-08] MEDS: Piperacill/Tazo 3.375gm in Dex 3.375 GM/50 ML BAG IVPB SCH ×4 (02:58→21:38)
[2018-09-08] MEDS: Lactobacillus Acidophilus 500 MU Cap PO SCH ×2 (07:01→19:00)
[2018-09-08 07:15] LABS: BASO % 0.4 % (0.0-2.0); EOS # 0.1 K/uL (0.0-0.7); EOS % 1.5 % (0.0-4.0); HEMOGLOBIN 8.8 g/dL (12.0-18.0); LYMPH # 1.9 K/uL (1.0-4.3); LYMPH % 25.3 % (20.0-40.0); MEAN CELL VOLUME 90.6 fL (80.0-94.0); MEAN CORPUSCULAR HEMOGLOBIN 30.1 pg (27.0-31.0); MEAN CORPUSCULAR HGB CONC 33.3 g/dL (33.0-37.0); MONO # 0.8 K/uL (0.0-0.8); MONO % 10.9 % (0.0-10.0); NEUT # 4.5 K/uL (1.8-7.0); NEUT % 61.9 % (50.0-75.0); RBC 2.92 Mil/uL (4.40-5.90); RED CELL DISTRIBUTION WIDTH 12.5 % (11.5-14.5); WHITE BLOOD COUNT 7.3 K/uL (4.8-10.8)
[2018-09-08] MEDS ORDERED: (Lantus) Insulin Glargine, Recombinant SC SCH (07:30)
[2018-09-08 07:46] LABS: VANCOMYCIN RANDOM 21.1 ug/mL
[2018-09-08 07:50] LABS: ALB/GLOB RATIO 0.7 (1.0-2.1); ALBUMIN 2.5 g/dL (3.5-5.0); ALT/SGPT 25 U/L (21-72); AST/SGOT 43 U/L (17-59); BLOOD UREA NITROGEN 20 mg/dL (9-20); CALCIUM 7.9 mg/dl (8.6-10.4); GFR NON-AFRICAN AMERICAN 51
[2018-09-08] MEDS: (Novolin R) Insulin Human Regular 100 units/ml vial SC SCH ×4 (08:30→21:41)
[2018-09-08] MEDS: Sodium Chloride 0.45% 1,000 ML IV SCH ×2 (08:32→17:00)
--- NOTE | 2018-09-08 09:51 | CP.PCM.PN ---
Subjective - Date & Time of Evaluation Date of Evaluation: 09/08/18 Time of Evaluation: 07:00 - Subjective Subjective: Surgery Progress note. Dr. Latif Pt seen and examined at bedside. No acute events overnight. Right calf wound continues to drain purulent material. Performed a conservative debridement at bedside today. Patient to likely benefit from a formal debridement in the OR. Denies any fevers or chills. Pain well tolerated. no new complaints. Objective - Vital Signs/Intake and Output Vital Signs (last 24 hours): Temp Pulse Resp BP Pulse Ox 99.4 F 90 20 140/89 97 09/08/18 08:28 09/08/18 08:28 09/08/18 08:28 09/08/18 08:28 09/08/18 08:28 Intake and Output: 09/08/18 09/08/18 06:59 18:59 Intake Total 1450 Output Total 750 Balance 700 - Medications Medications: Current Medications Acetaminophen (Tylenol 325mg Tab) 325 mg PO Q6 PRN PRN Reason: Pain, Mild (1-3) Acetaminophen (Tylenol 325mg Tab) 650 mg PO Q6 PRN PRN Reason: Pain, moderate (4-7) Dextrose (Dextrose 50% Inj) 0 ml IV STAT PRN; Protocol PRN Reason: Hypoglycemia Protocol Dextrose (Glutose 15) 0 gm PO ONCE PRN; Protocol PRN Reason: Hypoglycemia Protocol Dextrose (Dextrose 50% Inj) 0 ml IV STAT PRN; Protocol PRN Reason: Hypoglycemia Protocol Dextrose (Glutose 15) 0 gm PO ONCE PRN; Protocol PRN Reason: Hypoglycemia Protocol Glipizide (Glucotrol) 10 mg PO [facility] Last Admin: 09/08/18 08:31 Dose: 10 mg Glucagon (Glucagen Diagnostic Kit) 0 mg IM STAT PRN; Protocol PRN Reason: Hypoglycemia Protocol Glucagon (Glucagen Diagnostic Kit) 0 mg IM STAT PRN; Protocol PRN Reason: Hypoglycemia Protocol Heparin Sodium (Porcine) (Heparin) 5,000 units SC Q8 [facility] Last Admin: 09/08/18 06:59 Dose: 5,000 units Dextrose (Dextrose 5% In Water 1000 Ml) 1,000 mls @ 0 mls/hr IV .Q0M PRN; Protocol PRN Reason: Hypoglycemia Protocol Piperacillin Sod/Tazobactam Sod (Zosyn 3.375 Gm Iv Premix) 3.375 gm in 50 mls @ 200 mls/hr IVPB Q6H [facility]; Protocol Last Admin: 09/08/18 08:32 Dose: 200 mls/hr Vancomycin/Sodium Chloride (Vancomycin 1 Gm/Ns 200 Ml) 1 gm in 200 mls @ 166.6 mls/hr IVPB Q12H [facility]; Protocol Stop: 09/12/18 22:01 Last Admin: 09/07/18 21:04 Dose: 166.6 mls/hr Dextrose (Dextrose 5% In Water 1000 Ml) 1,000 mls @ 0 mls/hr IV .Q0M PRN; Protocol PRN Reason: Hypoglycemia Protocol Sodium Chloride (Sodium Chloride 0.45%) 1,000 mls @ 100 mls/hr IV .Q10H [facility] Last Admin: 09/08/18 08:32 Dose: Not Given Insulin Human NPH (Novolin N) 14 unit SC [facility] Insulin Human Regular (Novolin R) 0 unit SC ACHS [facility]; Protocol Last Admin: 09/08/18 08:30 Dose: 3 units Lactobacillus Acidophilus (Bacid Acidophilus) 1 cap PO Q12H [facility] Last Admin: 09/08/18 07:01 Dose: 1 cap Lisinopril (Zestril) 2.5 mg PO DAILY [facility] Last Admin: 09/07/18 11:00 Dose: 2.5 mg Metformin HCl (Glucophage) 500 mg PO BID [facility] Oxycodone HCl (Oxycodone Immediate Release Tab) 5 mg PO Q6 PRN PRN Reason: Pain, severe (8-10) Last Admin: 09/06/18 15:20 Dose: 5 mg Rosuvastatin Calcium (Crestor) 5 mg PO [facility] Last Admin: 09/06/18 21:45 Dose: 5 mg - Labs Labs: 09/08/18 07:05 09/08/18 07:06 PT 10.7 SECONDS (9.7-12.2) 09/05/18 20:16 INR 1.0 09/05/18 20:16 APTT 34 SECONDS (21-34) 09/05/18 20:16 - Constitutional Appears: Well, Non-toxic, No Acute Distress - Head Exam Head Exam: ATRAUMATIC, NORMAL INSPECTION, NORMOCEPHALIC - Eye Exam Eye Exam: EOMI, Normal appearance - ENT Exam ENT Exam: Mucous Membranes Moist - Respiratory Exam Respiratory Exam: NORMAL BREATHING PATTERN. absent: Accessory Muscle Use, Respiratory Distress - Cardiovascular Exam Cardiovascular Exam: absent: JVD - GI/Abdominal Exam GI & Abdominal Exam: Soft. absent: Distended, Firm, Guarding, Tenderness - Extremities Exam Additional comments: Right mid calf wound with areas of necrotic skin changes noted along with fibrinous deposits. Performed a bedside conservative debridement this morning. Continues to drain purulent material upon expression. - Neurological Exam Neurological Exam: Alert, Awake, Oriented x3 - Psychiatric Exam Psychiatric exam: Normal Affect, Normal Mood Assessment and Plan - Assessment and Plan (Free Text) Assessment: 43yo M with R LE abscess with associated necrotic skin changes Plan: - Continue IV Abx as per ID team recs - Wound culture: MRSA and Beta hemolytic strep - f/u blood cultures - Continue dressing changes to ensure area as clean as possible - Will likely benefit from formal OR debridement of necrotic areas. Will plan as an add-on case tomorrow, 09/09. - NPO past midnight - adjust insulin coverage for tighter glucose control as per Endocrine recs Further recs as per Dr. Salomon Khalil PGY2 surgery
[2018-09-08] MEDS: Vancomycin 1 gm/NS 200 ml 1 GM/200 ML BAG IVPB SCH ×2 (10:38→22:00)
--- NOTE | 2018-09-08 18:07 | PN ---
DATE: 09/08/2018 ENDOCRINOLOGY FOLLOWUP NOTE LOCATION: In room 351. SUBJECTIVE: This is a 43-year-old male presenting here with right leg cellulitis with underlying abscess and is now being followed closely for metabolic management with hyperglycemic accelerations as noted thereof. His glucose levels today are ranging from 250 to 295 mg/dL. LABORATORY DATA: His latest chemistry showed a BUN of 20, sodium 130, potassium 4, chloride 96, CO2 of 27, glucose 330, and creatinine 1.5. ASSESSMENT AND PLAN: So at this to start tonight. We will also continue the oral hypoglycemic therapies with glipizide given as 10 mg b.i.d. and metformin given as 500 mg b.i.d. . We will obtain serial chemistries and supplement accordingly as needed. We will also continue his intravenous hydration as given. We will follow this. Laura Stallworth MD
[2018-09-08] MEDS: (Novolin N) Insulin Human Isophane (NPH) 100 u/ml 10 ml vial SC SCH (21:42)
[2018-09-08] MEDS ORDERED: (Novolin N) Insulin Human Isophane (NPH) 100 u/ml 10 ml vial SC SCH (22:00)
[2018-09-09] MEDS: Piperacill/Tazo 3.375gm in Dex 3.375 GM/50 ML BAG IVPB SCH ×4 (03:03→20:43)
[2018-09-09] MEDS: Sodium Chloride 0.45% 1,000 ML IV SCH (03:15)
[2018-09-09] MEDS: Lactobacillus Acidophilus 500 MU Cap PO SCH ×2 (07:10→18:25)
[2018-09-09 07:26] LABS: BASO % 0.3 % (0.0-2.0); EOS # 0.1 K/uL (0.0-0.7); EOS % 1.9 % (0.0-4.0); HEMOGLOBIN 9.2 g/dL (12.0-18.0); LYMPH # 1.9 K/uL (1.0-4.3); LYMPH % 26.9 % (20.0-40.0); MEAN CELL VOLUME 89.7 fL (80.0-94.0); MEAN CORPUSCULAR HEMOGLOBIN 31.1 pg (27.0-31.0); MEAN CORPUSCULAR HGB CONC 34.6 g/dL (33.0-37.0); MEAN PLATELET VOLUME 8.7 fL (7.2-11.7); MONO # 0.9 K/uL (0.0-0.8); MONO % 12.9 % (0.0-10.0); NEUT # 4.1 K/uL (1.8-7.0); RBC 2.95 Mil/uL (4.40-5.90); RED CELL DISTRIBUTION WIDTH 12.4 % (11.5-14.5)
[2018-09-09 07:37] LABS: ALB/GLOB RATIO 0.7 (1.0-2.1); ALBUMIN 2.6 g/dL (3.5-5.0); CALCIUM 8.1 mg/dl (8.6-10.4)
[2018-09-09] MEDS: (Novolin R) Insulin Human Regular 100 units/ml vial SC SCH ×4 (08:13→21:45)
[2018-09-09 08:38] LABS: PROTHROMBIN TIME 10.6 SECONDS (9.7-12.2)
--- NOTE | 2018-09-09 09:27 | CP.PCM.PN ---
<Frederick Erazo - Last Filed: 09/09/18 11:47> Subjective - Date & Time of Evaluation Date of Evaluation: 09/09/18 Time of Evaluation: 09:25 - Subjective Subjective: PGY-1 Progress Note Medicine for Dr. Coy's service Patient was seen and examined at bedside this morning. Patient is due for OR I&D today for his right calf abscess. Patient still has soreness on his right calf but denies any fever, headache, chest pain, shortness of breath, n/v, diarrhea, abdominal pain or dysuria. Objective - Vital Signs/Intake and Output Vital Signs (last 24 hours): Temp Pulse Resp BP Pulse Ox 99 F 96 H 20 148/90 99 09/09/18 07:00 09/09/18 07:00 09/09/18 07:00 09/09/18 07:00 09/09/18 07:00 Intake and Output: 09/09/18 09/09/18 06:59 18:59 Intake Total 1900 Output Total 1100 Balance 800 - Medications Medications: Current Medications Acetaminophen (Tylenol 325mg Tab) 325 mg PO Q6 PRN PRN Reason: Pain, Mild (1-3) Acetaminophen (Tylenol 325mg Tab) 650 mg PO Q6 PRN PRN Reason: Pain, moderate (4-7) Dextrose (Dextrose 50% Inj) 0 ml IV STAT PRN; Protocol PRN Reason: Hypoglycemia Protocol Dextrose (Glutose 15) 0 gm PO ONCE PRN; Protocol PRN Reason: Hypoglycemia Protocol Dextrose (Dextrose 50% Inj) 0 ml IV STAT PRN; Protocol PRN Reason: Hypoglycemia Protocol Dextrose (Glutose 15) 0 gm PO ONCE PRN; Protocol PRN Reason: Hypoglycemia Protocol Glipizide (Glucotrol) 10 mg PO ACBD [facility] Last Admin: 09/09/18 08:12 Dose: Not Given Glucagon (Glucagen Diagnostic Kit) 0 mg IM STAT PRN; Protocol PRN Reason: Hypoglycemia Protocol Glucagon (Glucagen Diagnostic Kit) 0 mg IM STAT PRN; Protocol PRN Reason: Hypoglycemia Protocol Heparin Sodium (Porcine) (Heparin) 5,000 units SC Q8 [facility] Last Admin: 09/08/18 13:16 Dose: 5,000 units Dextrose (Dextrose 5% In Water 1000 Ml) 1,000 mls @ 0 mls/hr IV .Q0M PRN; Protocol PRN Reason: Hypoglycemia Protocol Piperacillin Sod/Tazobactam Sod (Zosyn 3.375 Gm Iv Premix) 3.375 gm in 50 mls @ 200 mls/hr IVPB Q6H [facility]; Protocol Last Admin: 09/09/18 03:03 Dose: 200 mls/hr Vancomycin/Sodium Chloride (Vancomycin 1 Gm/Ns 200 Ml) 1 gm in 200 mls @ 166.6 mls/hr IVPB Q12H [facility]; Protocol Stop: 09/12/18 22:01 Last Admin: 09/08/18 22:00 Dose: 166.6 mls/hr Dextrose (Dextrose 5% In Water 1000 Ml) 1,000 mls @ 0 mls/hr IV .Q0M PRN; Protocol PRN Reason: Hypoglycemia Protocol Sodium Chloride (Sodium Chloride 0.45%) 1,000 mls @ 100 mls/hr IV .Q10H [facility] Last Admin: 09/09/18 03:15 Dose: 100 mls/hr Insulin Human NPH (Novolin N) 10 unit SC [facility] Last Admin: 09/08/18 21:42 Dose: 10 units Insulin Human Regular (Novolin R) [address] [facility]; Protocol Last Admin: 09/09/18 08:13 Dose: Not Given Lactobacillus Acidophilus (Bacid Acidophilus) 1 cap PO Q12H [facility] Last Admin: 09/09/18 07:10 Dose: 1 cap Lisinopril (Zestril) 2.5 mg PO DAILY [facility] Last Admin: 09/08/18 10:37 Dose: 2.5 mg Metformin HCl (Glucophage) 500 mg PO BID [facility] Last Admin: 09/08/18 18:00 Dose: 500 mg Oxycodone HCl (Oxycodone Immediate Release Tab) 5 mg PO Q6 PRN PRN Reason: Pain, severe (8-10) Last Admin: 09/06/18 15:20 Dose: 5 mg Rosuvastatin Calcium (Crestor) 5 mg PO [facility] Last Admin: 09/08/18 21:55 Dose: 5 mg - Labs Labs: 09/09/18 07:11 09/09/18 07:11 PT 10.6 SECONDS (9.7-12.2) 09/09/18 07:11 INR 1.0 09/09/18 07:11 APTT 34 SECONDS (21-34) 09/05/18 20:16 - Constitutional Appears: Well, Non-toxic, No Acute Distress - Head Exam Head Exam: ATRAUMATIC, NORMOCEPHALIC - Eye Exam Eye Exam: EOMI, Normal appearance, PERRL Pupil Exam: NORMAL ACCOMODATION, PERRL - Respiratory Exam Respiratory Exam: Clear to Ausculation Bilateral, NORMAL BREATHING PATTERN. absent: Accessory Muscle Use, Rales, Rhonchi, Wheezes - Cardiovascular Exam Cardiovascular Exam: REGULAR RHYTHM, +S1, +S2. absent: JVD - GI/Abdominal Exam GI & Abdominal Exam: Soft, Normal Bowel Sounds. absent: Tenderness - Extremities Exam Extremities Exam: Calf Tenderness. absent: Pedal Edema Additional comments: Right mid calf wound with areas of necrotic skin changes noted along with fibrinous deposits. Continues to drain purulent material upon expression. Dressing in place - Neurological Exam Neurological Exam: Alert, Awake, Oriented x3 - Psychiatric Exam Psychiatric exam: Normal Affect - Skin Skin Exam: Normal Color Assessment and Plan - Assessment and Plan (Free Text) Assessment: Patient is a 43 yo male w/ PMH of depression, hyperlipidemia, and uncontrolled diabetes is admitted to hospital for treatment of abscess with surrounding cellulitis of the right calf. Psych, Surgery, Infectious Disease was consulted. Patient was treated with Vanc/Zosyn. Patient had elevated blood pressure readings so Zestril was initiated. MRI was ordered which showed 2 developing abscess but no signs of osteomyelitis. Endo was consulted for poorly controlled diabetes. Patient was started on glipizide, metformin, and 10 units of NPH HS Plan: Abscess with Surrounding Cellulitis ID consulted: Dr. Langston - recs as below Zosyn and Vanc (held) for IV abx coverage Wound culture: MRSA, Group B strep MRI of lower extremity: 2 developing abscess but no signs of osteomyeltis Surgery Consulted- Dr. Daley: OR I&D (09/09) Oxycodone 5mg PO q6 PRN for pain Acetaminophen 325mg/650mg PO q6 PRN for pain PLAN FOR I&D in OR with surgical team Elevated Creatinine Held Metformin, Vanc; Vanc random pending/Vanc trough not collected Repeat CMP in AM; NS @ 100mls/hr Uncontrolled Diabetes Dr Stallworth consulted -recs as below A1C- 16.6 ISS sliding scale Hypoglycemic protocol; ACHS NPH 10 added Metformin 500mg PO BID - held Glipizide 10mg PO ACBD NS @100 Hypertension Zestril 2.5mg po daily- held Hyperlipidemia Crestor 5mg po HS Depression Psychiatry: Dr. Miller consulted- no intervention at this time Anemia Iron studies suggestive of anemia of chronic disease Patient is asymptomatic and hemodynamically stable PPx: DVT ppx: SCDS only on left leg, Heparin hold for OR I&D today (09/09) GI ppx: Lactobacillus 1cap PO q12h Madaser Castro PGY-1 Medical management discussed with Dr. Coy <Lupe Coy V - Last Filed: 09/13/18 20:15> Objective - Vital Signs/Intake and Output Vital Signs (last 24 hours): Temp Pulse Resp BP Pulse Ox 99 F 87 20 134/85 100 09/12/18 16:03 09/12/18 16:03 09/12/18 16:03 09/12/18 16:03 09/12/18 16:03 Intake and Output: 09/12/18 09/13/18 18:59 06:59 Intake Total 1160 Output Total 700 Balance 460 - Medications Medications: Current Medications Acetaminophen (Tylenol 325mg Tab) 325 mg PO Q6 PRN PRN Reason: Pain, Mild (1-3) Acetaminophen (Tylenol 325mg Tab) 650 mg PO Q6 PRN PRN Reason: Pain, moderate (4-7) Amlodipine Besylate (Norvasc) 5 mg PO DAILY [facility] Last Admin: 09/12/18 09:58 Dose: 5 mg Dextrose (Dextrose 50% Inj) 0 ml IV STAT PRN; Protocol PRN Reason: Hypoglycemia Protocol Dextrose (Glutose 15) 0 gm PO ONCE PRN; Protocol PRN Reason: Hypoglycemia Protocol Dextrose (Dextrose 50% Inj) 0 ml IV STAT PRN; Protocol PRN Reason: Hypoglycemia Protocol Dextrose (Glutose 15) 0 gm PO ONCE PRN; Protocol PRN Reason: Hypoglycemia Protocol Glipizide (Glucotrol) 10 mg PO ACBD [facility] Last Admin: 09/12/18 17:36 Dose: 10 mg Glucagon (Glucagen Diagnostic Kit) 0 mg IM STAT PRN; Protocol PRN Reason: Hypoglycemia Protocol Glucagon (Glucagen Diagnostic Kit) 0 mg IM STAT PRN; Protocol PRN Reason: Hypoglycemia Protocol Heparin Sodium (Porcine) (Heparin) 5,000 units SC Q8 [facility] Last Admin: 09/12/18 13:21 Dose: 5,000 units Piperacillin Sod/Tazobactam Sod (Zosyn 3.375 Gm Iv Premix) 3.375 gm in 50 mls @ 200 mls/hr IVPB Q6H [facility]; Protocol Last Admin: 09/12/18 14:06 Dose: 200 mls/hr Clindamycin Phosphate 600 mg/ (Sodium Chloride) 54 mls @ 100 mls/hr IVPB Q8H [facility]; Protocol Last Admin: 09/12/18 20:05 Dose: 100 mls/hr Insulin Human NPH (Novolin N) 6 unit SC [facility] Last Admin: 09/11/18 23:00 Dose: Not Given Insulin Human Regular (Novolin R) 0 unit SC ACHS [facility]; Protocol Last Admin: 09/12/18 17:20 Dose: Not Given Lactobacillus Acidophilus (Bacid Acidophilus) 1 cap PO Q12H [facility] Last Admin: 09/12/18 19:00 Dose: 1 cap Lisinopril (Zestril) 5 mg PO DAILY [facility] Last Admin: 09/12/18 09:58 Dose: 5 mg Metformin HCl (Glucophage) 500 mg PO BID [facility] Last Admin: 09/09/18 09:44 Dose: Not Given Oxycodone HCl (Oxycodone Immediate Release Tab) 5 mg PO Q6 PRN PRN Reason: Pain, severe (8-10) Last Admin: 09/12/18 08:28 Dose: 5 mg Rosuvastatin Calcium (Crestor) 5 mg PO [facility] Last Admin: 09/11/18 21:48 Dose: 5 mg - Labs Labs: 09/12/18 06:58 09/12/18 06:58 PT 10.6 SECONDS (9.7-12.2) 09/09/18 07:11 INR 1.0 09/09/18 07:11 APTT 34 SECONDS (21-34) 09/05/18 20:16 Attending/Attestation - Attestation I have personally seen and examined this patient.: Yes I have fully participated in the care of the patient.: Yes I have reviewed all pertinent clinical information, including history, physical exam and plan: Yes Notes (Text): This is late computer entry for 09/09/18. Patient seen, examined and case discussed with day-time resident. Patient went to the OR for debridement for surgery. Patient seen post OR. Will continue IV antibiotics. Creatinine elevated; d/c metformin; started IV fluids. Will hold vancomycin and check vancomycin level. Assessment/Plan 1) MRSA Abscess; MRSA Cellulitis Assessment/plan * Infectious Disease (Dr. Langston) on board-->help appreciated * bedside i&D 09/07 * OR possible 09/09 for further debridement * Surgery (Dr. Nolasco) on board-->help appreciated * Place on contact isolation * Zosyn 3.375g IV Q6H (active since 09/07/18) * Vancomycin 1gm IVQ12H (active since 09/07/18) * Hold in light elevated creatinine * Wound culture (09/05/18) MRSA: Beta hemolytic strep Group B * sensitive to Vancomycin * Blood culture (09/05/17): no growth * MRI (09/07/18): prominent reticulation and edema within the circumferential subcutaneous soft tissues consistent with cellulitis. more confluent lobulated collection of fluid intensity signal seen with lateral subcutanous soft tissues measuring 4.1 X1.1 X4.3 cm mid tibia and fibula with abscess and our phlegmon collection. Confluent fluid and edema seen within the posterior lateral subcutaneous soft tissues which appear somehwat contgious with lateral collectio 3.1 X0.8 CM phlegmon and/or developing abscess collection. Extensive edema with increased signal seen within anterolateral compartment musculature etc. * CT Scan (09/06/18): prominent reticulation and edema within the subq soft tissues at the anterior and lateral aspect of the left lower extremity level of the tibia and fibula consistent with known cellulitis (further findings per report) * Oxycodone 5mg PO q6H pRN severe pain 2) Uncontrolled diabetes; History of Noncompliance Assessment/Plan * A1C- 16.6 * ISS sliding scale * Hypoglycemic protocol; ACHS * Lantus 10 added: will resume Lantus 20 units post OR * Glipizide 10mg PO ACBD * Novolo R 0 unit subqACHS * Novolin N 20 units subqHS * will 1/2 prior to OR and resume post OR 09/09 * Metformin 500mg PO BID * Lisinopril 2.5mg PO daily 3) Hypertension Assessment/Plan * Zestril 2.5mg po daily-->held given elevated creatinine 4) Hyperlipidemia Assessment/Plan * Crestor 5mg po HS 5) Depression Assessment/Plan * Psychiatry: Dr. Miller consulted- no intervention at this time 6) Anemia Assessment/Plan Iron studies suggestive of anemia of chronic disease Patient is asymptomatic and hemodynamically stable 7) PPx: * DVT ppx: SCDS only on left leg,held heparin 5000 units subq 8H for OR. * 1/2 NS 70cc/hr Disposition: patient went to OR for further debridement. Antibiotic adjusted in light of elevated creatinine. Started IV fluids. monitor sugars post OR.
--- NOTE | 2018-09-09 09:50 | CARD ---
APPROVED REPORT Date of service: 09/08/2018 EKG Measurement Heart [id number] <Conclusion> Normal sinus rhythm Nonspecific ST abnormality Abnormal ECG
[2018-09-09] MEDS: Vancomycin 1 gm/NS 200 ml 1 GM/200 ML BAG IVPB SCH (10:10)
[2018-09-09] MEDS ORDERED: Sodium Chloride 0.9% 1,000 ML IV SCH (11:30)
[2018-09-09] MEDS ORDERED: Propofol 10 mg/ml Inj (20 ML) ONE (12:48)
[2018-09-09] MEDS ORDERED: Midazolam 2 MG/2 ML VIAL ONE (12:48)
[2018-09-09] MEDS ORDERED: ePHEDrine 50 mg/ml Inj ONE (13:19)
[2018-09-09] MEDS ORDERED: HYDROmorphone 0.5 mg/0.5 ml ISec IVP PRN (13:24)
--- NOTE | 2018-09-09 13:29 | PCM.SURG1 ---
Surgeon's Initial Post Op Note - Surgeon's Notes Surgeon: Dr. Latif Knife Sharpener: PGY2 Type of Anesthesia: General LMA Pre-Operative Diagnosis: Right Lateral Calf abscess Operative Findings: necrotic and purulent drainage including skin, soft tissue, and muscle Post-Operative Diagnosis: as above Operation Performed: Derbidement of Right lower extremity of skin, soft tissue, and muscle Specimen/Specimens Removed: skin, soft tissue, and muscle Estimated Blood Loss: EBL {In ML}: 15 Drains Used: No Drains Post-Op Condition: Good Date of Surgery/Procedure: 09/09/18 Time of Surgery/Procedure: 13:30
[2018-09-09 14:19] VITALS: RESP 20
[2018-09-09] MEDS: (Novolin N) Insulin Human Isophane (NPH) 100 u/ml 10 ml vial SC SCH (21:45)
--- NOTE | 2018-09-10 00:44 | PN ---
DATE: 09/09/2018Room 354. SUBJECTIVE: This is a 43-year-old male with recent uncontrolled type 2 insulin-requiring diabetes, now being followed closely for metabolic management. He also has ongoing IV antibiotic management for right lower extremity cellulitis with underlying abscess formation and underwent debridement procedure today as noted. LABORATORY DATA: His glycemic levels are fluctuating, and the glucose values today have ranged from 118-276 and 228 mg per dL. Thus, 105 early this morning at 7. a.m. His chemistries showed a BUN of 21, sodium 134, potassium 3.7, chloride 99, CO2 29, glucose 104, and creatinine 1.7. ASSESSMENT AND PLAN: There is still biochemical evidence of prerenal azotemia and dehydration as noted thereof. His initial creatinine, on admission when his sugars were extremely elevated at over 500, was only 1.4. Moreover, he has ongoing IV antibiotics. This could be potentially nephrotoxic to the kidneys as well. We will continue the NPH given as 20 units subcutaneously at bedtime daily as ordered. We will also continue the glipizide given as 10 mg b.i.d. as ordered. They have withheld metformin ordered as 500 mg b.i.d. for now. We would continue the IV hydration to improve his biochemical indices thereof and also continue the IV hydration from the increased osmotic diuresis thereof. We will obtain serial chemistries and supplement accordingly as needed. We will follow. Laura Stallworth MD
--- NOTE | 2018-09-10 01:06 | OP ---
PROCEDURE DATE: 09/09/2018 PREOPERATIVE DIAGNOSIS: Necrotic debridement of wound, right calf. PROCEDURE CARRIED OUT: Debridement of skin, subcutaneous tissue and muscle of right calf wound. SURGEON: Kendell Latif Jr., MD [employer] SPECIALIST: Alli Forde DO ANESTHESIOLOGIST: Dr. Trevizo. INDICATION: The patient is a 43-year-old male with diabetic wound infection of the foot, poor pulse status. OPERATIVE FINDINGS: Skin, subcutaneous tissue and muscle were debrided. Hemostasis was obtained with the use of both peroxide and cautery. Mild decompressive dressing was obtained. Packing was placed around the wounds. A lot of debrided tissue was carried away. Blood loss for the procedure was 50 mL. Operation carried out was debridement of skin, subcutaneous tissue and muscle of right calf. Kendell Latif Jr., MD
[2018-09-10] MEDS: Piperacill/Tazo 3.375gm in Dex 3.375 GM/50 ML BAG IVPB SCH ×4 (03:42→21:35)
[2018-09-10] MEDS: Lactobacillus Acidophilus 500 MU Cap PO SCH ×2 (06:07→18:04)
[2018-09-10 07:47] LABS: BASO % 0.5 % (0.0-2.0); EOS # 0.2 K/uL (0.0-0.7); EOS % 2.1 % (0.0-4.0); HEMOGLOBIN 8.8 g/dL (12.0-18.0); LYMPH # 1.7 K/uL (1.0-4.3); MEAN CELL VOLUME 89.6 fL (80.0-94.0); MEAN CORPUSCULAR HEMOGLOBIN 30.3 pg (27.0-31.0); MEAN CORPUSCULAR HGB CONC 33.9 g/dL (33.0-37.0); MEAN PLATELET VOLUME 8.5 fL (7.2-11.7); MONO # 1.1 K/uL (0.0-0.8); MONO % 13.2 % (0.0-10.0); NEUT # 5.1 K/uL (1.8-7.0); NEUT % 63.2 % (50.0-75.0); NRBC % 0.1 % (0.0-2.0); RBC 2.89 Mil/uL (4.40-5.90); RED CELL DISTRIBUTION WIDTH 12.4 % (11.5-14.5); WHITE BLOOD COUNT 8.1 K/uL (4.8-10.8)
[2018-09-10] MEDS: (Novolin R) Insulin Human Regular 100 units/ml vial SC SCH ×4 (08:00→21:48)
--- NOTE | 2018-09-10 08:17 | CP.PCM.PN ---
Subjective - Date & Time of Evaluation Date of Evaluation: 09/10/18 Time of Evaluation: 06:10 - Subjective Subjective: Surgery Progress note. Dr. Latif. Pt seen and examined at bedside. No acute events overnight. No F/C. No new complaints. Pain well tolerated. Dressing changed this morning. Objective - Vital Signs/Intake and Output Vital Signs (last 24 hours): Temp Pulse Resp BP Pulse Ox 99.5 F 105 H 20 127/85 99 09/10/18 00:00 09/10/18 00:00 09/10/18 00:00 09/10/18 00:00 09/10/18 00:00 - Medications Medications: Current Medications Acetaminophen (Tylenol 325mg Tab) 325 mg PO Q6 PRN PRN Reason: Pain, Mild (1-3) Acetaminophen (Tylenol 325mg Tab) 650 mg PO Q6 PRN PRN Reason: Pain, moderate (4-7) Amlodipine Besylate (Norvasc) 5 mg PO DAILY [facility] Dextrose (Dextrose 50% Inj) 0 ml IV STAT PRN; Protocol PRN Reason: Hypoglycemia Protocol Dextrose (Glutose 15) 0 gm PO ONCE PRN; Protocol PRN Reason: Hypoglycemia Protocol Dextrose (Dextrose 50% Inj) 0 ml IV STAT PRN; Protocol PRN Reason: Hypoglycemia Protocol Dextrose (Glutose 15) 0 gm PO ONCE PRN; Protocol PRN Reason: Hypoglycemia Protocol Glipizide (Glucotrol) 10 mg PO ACBD [facility] Last Admin: 09/09/18 16:48 Dose: 10 mg Glucagon (Glucagen Diagnostic Kit) 0 mg IM STAT PRN; Protocol PRN Reason: Hypoglycemia Protocol Glucagon (Glucagen Diagnostic Kit) 0 mg IM STAT PRN; Protocol PRN Reason: Hypoglycemia Protocol Heparin Sodium (Porcine) (Heparin) 5,000 units SC Q8 [facility] Last Admin: 09/08/18 13:16 Dose: 5,000 units Hydromorphone HCl (Dilaudid) 0.5 mg IVP Q15M PRN PRN Reason: Pain, severe (8-10) Dextrose (Dextrose 5% In Water 1000 Ml) 1,000 mls @ 0 mls/hr IV .Q0M PRN; Protocol PRN Reason: Hypoglycemia Protocol Piperacillin Sod/Tazobactam Sod (Zosyn 3.375 Gm Iv Premix) 3.375 gm in 50 mls @ 200 mls/hr IVPB Q6H [facility]; Protocol Last Admin: 09/10/18 03:42 Dose: 200 mls/hr Vancomycin/Sodium Chloride (Vancomycin 1 Gm/Ns 200 Ml) 1 gm in 200 mls @ 166.6 mls/hr IVPB Q12H [facility]; Protocol Stop: 09/12/18 22:01 Last Admin: 09/09/18 10:10 Dose: 166.6 mls/hr Dextrose (Dextrose 5% In Water 1000 Ml) 1,000 mls @ 0 mls/hr IV .Q0M PRN; [place] col PRN Reason: Hypoglycemia Protocol Sodium Chloride (Sodium Chloride 0.45%) 1,000 mls @ 100 mls/hr IV .Q10H [facility] Last Admin: 09/09/18 03:15 Dose: 100 mls/hr Insulin Human NPH (Novolin N) 10 unit SC [facility] Last Admin: 09/09/18 21:45 Dose: 10 units Insulin Human Regular (Novolin R) 0 unit SC [facility]; Protocol Last Admin: 09/09/18 21:45 Dose: Not Given Lactobacillus Acidophilus (Bacid Acidophilus) 1 cap PO Q12H [facility] Last Admin: 09/10/18 06:07 Dose: 1 cap Lisinopril (Zestril) 5 mg PO DAILY [facility] Metformin HCl (Glucophage) 500 mg PO BID [facility] Last Admin: 09/09/18 09:44 Dose: Not Given Oxycodone HCl (Oxycodone Immediate Release Tab) 5 mg PO Q6 PRN PRN Reason: Pain, severe (8-10) Last Admin: 09/06/18 15:20 Dose: 5 mg Rosuvastatin Calcium (Crestor) 5 mg PO [facility] Last Admin: 09/09/18 21:44 Dose: 5 mg - Labs Labs: 09/10/18 07:39 09/09/18 07:11 PT 10.6 SECONDS (9.7-12.2) 09/09/18 07:11 INR 1.0 09/09/18 07:11 APTT 34 SECONDS (21-34) 09/05/18 20:16 - Constitutional Appears: Well, Non-toxic, No Acute Distress - Head Exam Head Exam: ATRAUMATIC, NORMAL INSPECTION, NORMOCEPHALIC - Eye Exam Eye Exam: EOMI, Normal appearance - ENT Exam ENT Exam: Mucous Membranes Moist - Respiratory Exam Respiratory Exam: NORMAL BREATHING PATTERN. absent: Accessory Muscle Use, Respiratory Distress - GI/Abdominal Exam GI & Abdominal Exam: Rigid, Soft. absent: Distended, Firm, Guarding, Rebound - Extremities Exam Additional comments: right calf wound dressing replaced this morning. Used betadine soaked kerlex as loose packing. Patient tolerated well. No severe tenderness to palpation. - Neurological Exam Neurological Exam: Alert, Awake, Oriented x3 - Psychiatric Exam Psychiatric exam: Normal Affect, Normal Mood Assessment and Plan - Assessment and Plan (Free Text) Assessment: 43yo M with R LE abscess, s/p debridement POD1 - Wound culture: MRSA and beta hemolytic strep Plan: - f/u blood cultures - f/u wound care recommendations - continue dressing changes as needed - continue tighter glucose control as per Endocrine team recs Further recs as per Dr. Salomon Khalil PGY2 Surgery
[2018-09-10 08:24] LABS: ALB/GLOB RATIO 0.7 (1.0-2.1); ALBUMIN 2.6 g/dL (3.5-5.0); ALT/SGPT 26 U/L (21-72); AST/SGOT 38 U/L (17-59); BLOOD UREA NITROGEN 15 mg/dL (9-20); CALCIUM 8.3 mg/dl (8.6-10.4); GFR NON-AFRICAN AMERICAN 55
--- NOTE | 2018-09-10 12:45 | CP.PCM.PN ---
<Frederick Erazo - Last Filed: 09/10/18 12:42> Subjective - Date & Time of Evaluation Date of Evaluation: 09/10/18 Time of Evaluation: 11:00 - Subjective Subjective: PGY-1 Medicine Progress Note for Dr. Coy's service Patient seen and examined at bedside. Patient offers no acute complaints. Patient denies fevers, chills, chest pain, sob, n/v, constipation or diarrhea, and dysuria. Objective - Vital Signs/Intake and Output Vital Signs (last 24 hours): Temp Pulse Resp BP Pulse Ox 99.5 F 105 H 20 127/85 99 09/10/18 00:00 09/10/18 00:00 09/10/18 00:00 09/10/18 00:00 09/10/18 00:00 - Medications Medications: Current Medications Acetaminophen (Tylenol 325mg Tab) 325 mg PO Q6 PRN PRN Reason: Pain, Mild (1-3) Acetaminophen (Tylenol 325mg Tab) 650 mg PO Q6 PRN PRN Reason: Pain, moderate (4-7) Amlodipine Besylate (Norvasc) 5 mg PO DAILY [facility] Last Admin: 09/10/18 10:31 Dose: 5 mg Dextrose (Dextrose 50% Inj) 0 ml IV STAT PRN; Protocol PRN Reason: Hypoglycemia Protocol Dextrose (Glutose 15) 0 gm PO ONCE PRN; Protocol PRN Reason: Hypoglycemia Protocol Dextrose (Dextrose 50% Inj) 0 ml IV STAT PRN; Protocol PRN Reason: Hypoglycemia Protocol Dextrose (Glutose 15) 0 gm PO ONCE PRN; Protocol PRN Reason: Hypoglycemia Protocol Glipizide (Glucotrol) 10 mg PO ACBD [facility] Last Admin: 09/10/18 08:25 Dose: 10 mg Glucagon (Glucagen Diagnostic Kit) 0 mg IM STAT PRN; Protocol PRN Reason: Hypoglycemia Protocol Glucagon (Glucagen Diagnostic Kit) 0 mg IM STAT PRN; Protocol PRN Reason: Hypoglycemia Protocol Heparin Sodium (Porcine) (Heparin) 5,000 units SC Q8 [facility] Last Admin: 09/08/18 13:16 Dose: 5,000 units Hydromorphone HCl (Dilaudid) 0.5 mg IVP Q15M PRN PRN Reason: Pain, severe (8-10) Dextrose (Dextrose 5% In Water 1000 Ml) 1,000 mls @ 0 mls/hr IV .Q0M PRN; Protocol PRN Reason: Hypoglycemia Protocol Piperacillin Sod/Tazobactam Sod (Zosyn 3.375 Gm Iv Premix) 3.375 gm in 50 mls @ 200 mls/hr IVPB Q6H [facility]; Protocol Last Admin: 09/10/18 09:00 Dose: 200 mls/hr Vancomycin/Sodium Chloride (Vancomycin 1 Gm/Ns 200 Ml) 1 gm in 200 mls @ 166.6 mls/hr IVPB Q12H [facility]; Protocol Stop: 09/12/18 22:01 Last Admin: 09/09/18 10:10 Dose: 166.6 mls/hr Dextrose (Dextrose 5% In Water 1000 Ml) 1,000 mls @ 0 mls/hr IV .Q0M PRN; Protocol PRN Reason: Hypoglycemia Protocol Sodium Chloride (Sodium Chloride 0.45%) 1,000 mls @ 100 mls/hr IV .Q10H [facility] Last Admin: 09/09/18 03:15 Dose: 100 mls/hr Insulin Human NPH (Novolin N) 10 unit SC [facility] Last Admin: 09/09/18 21:45 Dose: 10 units Insulin Human Regular (Novolin R) 0 unit SC [facility]; Protocol Last Admin: 09/10/18 08:00 Dose: Not Given Lactobacillus Acidophilus (Bacid Acidophilus) 1 cap PO Q12H [facility] Last Admin: 09/10/18 06:07 Dose: 1 cap Lisinopril (Zestril) 5 mg PO DAILY [facility] Metformin HCl (Glucophage) 500 mg PO BID [facility] Last Admin: 09/09/18 09:44 Dose: Not Given Oxycodone HCl (Oxycodone Immediate Release Tab) 5 mg PO Q6 PRN PRN Reason: Pain, severe (8-10) Last Admin: 09/06/18 15:20 Dose: 5 mg Rosuvastatin Calcium (Crestor) 5 mg PO HS [facility] Last Admin: 09/09/18 21:44 Dose: 5 mg - Labs Labs: 09/10/18 07:39 09/10/18 07:39 PT 10.6 SECONDS (9.7-12.2) 09/09/18 07:11 INR 1.0 09/09/18 07:11 APTT 34 SECONDS (21-34) 09/05/18 20:16 - Additional Findings Additional findings: - Constitutional Appears: Well, Non-toxic, No Acute Distress - Head Exam Head Exam: ATRAUMATIC, NORMOCEPHALIC - Eye Exam Eye Exam: EOMI, Normal appearance, PERRL Pupil Exam: NORMAL ACCOMODATION, PERRL - Respiratory Exam Respiratory Exam: Clear to Ausculation Bilateral, NORMAL BREATHING PATTERN. absent: Accessory Muscle Use, Rales, Rhonchi, Wheezes - Cardiovascular Exam Cardiovascular Exam: REGULAR RHYTHM, +S1, +S2. absent: JVD - GI/Abdominal Exam GI & Abdominal Exam: Soft, Normal Bowel Sounds. absent: Tenderness - Extremities Exam Extremities Exam: Calf Tenderness. absent: Pedal Edema Additional comments: Right mid calf wound with areas of necrotic skin changes noted along with fibri nous deposits. Right calf wound dressing replaced this morning. Used betadine soaked kerlex as loose packing. - Neurological Exam Neurological Exam: Alert, Awake, Oriented x3 - Psychiatric Exam Psychiatric exam: Normal Affect - Skin Skin Exam: Normal Color Assessment and Plan - Assessment and Plan (Free Text) Assessment: Patient is a 43 yo male w/ PMH of depression, hyperlipidemia, and uncontrolled diabetes is admitted to hospital for treatment of abscess with surrounding cellulitis of the right calf. Psych, Surgery, Infectious Disease was consulted. Patient was treated with Vanc/Zosyn. Patient had elevated blood pressure readings so Zestril was initiated. MRI was ordered which showed 2 developing abscess but no signs of osteomyelitis. Endo was consulted for poorly controlled diabetes. Patient was started on glipizide, metformin, and 10 units of NPH HS. Elevation in creatinine was noted but medications were held and fluids administered and patient kidney function normalized. Plan: Abscess with Surrounding Cellulitis ID consulted: Dr. Langston - recs as below Zosyn and Vanc (held) for IV abx coverage; Switched to Clinda 600mg IVPB tid and Zosyn Wound culture: MRSA, Group B strep OR Wound cx pending MRI of lower extremity: 2 developing abscess but no signs of osteomyeltis Surgery Consulted- Dr. Daley: OR I&D (09/09) Oxycodone 5mg PO q6 PRN for pain Acetaminophen 325mg/650mg PO q6 PRN for pain Elevated Creatinine (resolved) Held Metformin, Vanc; Vanc random pending/Vanc trough not collected Repeat CMP in AM; NS @ 100mls/hr Uncontrolled Diabetes Dr Stallworth consulted -recs as below A1C- 16.6 ISS sliding scale Hypoglycemic protocol; ACHS NPH 10 added Metformin 500mg PO BID - held Glipizide 10mg PO ACBD NS @100 Hypertension Zestril 2.5mg po daily- held Norvasc 5mg po daily Hyperlipidemia Crestor 5mg po HS Depression Psychiatry: Dr. Miller consulted- no intervention at this time Anemia Iron studies suggestive of anemia of chronic disease Patient is asymptomatic and hemodynamically stable PPx: DVT ppx: SCDS only on left leg, Heparin 5000 units sc q8h GI ppx: Lactobacillus 1cap PO q12h Madaser Castro PGY-1 Medical management discussed with Dr. Coy <Lupe Coy V - Last Filed: 09/13/18 20:18> Objective - Vital Signs/Intake and Output Vital Signs (last 24 hours): Temp Pulse Resp BP Pulse Ox 99.3 F 96 H 20 121/80 100 09/13/18 16:00 09/13/18 16:00 09/13/18 16:00 09/13/18 16:00 09/13/18 16:00 - Labs Labs: 09/13/18 06:32 09/13/18 06:32 PT 10.6 SECONDS (9.7-12.2) 09/09/18 07:11 INR 1.0 09/09/18 07:11 APTT 34 SECONDS (21-34) 09/05/18 20:16 Attending/Attestation - Attestation I have personally seen and examined this patient.: Yes I have fully participated in the care of the patient.: Yes I have reviewed all pertinent clinical information, including history, physical exam and plan: Yes Notes (Text): This is late computer entry for 09/10/18. Patient seen, examined and case discussed with registered medical assistant. Patient is postoperative day 1 from debridement tolerated procedure less. Patient's antibiotics per ID; to Clindamycin and Zosyn. Vancomycin discontinued. Patient's creatinine improved from 1.7 to 1.4 while on IV fluids. Vancomycin level high but I attribute to it being drawn during initial vancomycin administration. Continue to monitor sugars. Blood pressure uncontrolled; started on norvasc.
--- NOTE | 2018-09-10 14:37 | CP.PCM.PN ---
Subjective - Date & Time of Evaluation Date of Evaluation: 09/10/18 Time of Evaluation: 14:35 - Subjective Subjective: dictated Objective - Vital Signs/Intake and Output Vital Signs (last 24 hours): Temp Pulse Resp BP Pulse Ox 99.5 F 105 H 20 127/85 99 09/10/18 00:00 09/10/18 00:00 09/10/18 00:00 09/10/18 00:00 09/10/18 00:00 - Medications Medications: Current Medications Acetaminophen (Tylenol 325mg Tab) 325 mg PO Q6 PRN PRN Reason: Pain, Mild (1-3) Acetaminophen (Tylenol 325mg Tab) 650 mg PO Q6 PRN PRN Reason: Pain, moderate (4-7) Amlodipine Besylate (Norvasc) 5 mg PO DAILY [facility] Last Admin: 09/10/18 10:31 Dose: 5 mg Dextrose (Dextrose 50% Inj) 0 ml IV STAT PRN; Protocol PRN Reason: Hypoglycemia Protocol Dextrose (Glutose 15) 0 gm PO ONCE PRN; Protocol PRN Reason: Hypoglycemia Protocol Dextrose (Dextrose 50% Inj) 0 ml IV STAT PRN; Protocol PRN Reason: Hypoglycemia Protocol Dextrose (Glutose 15) 0 gm PO ONCE PRN; Protocol PRN Reason: Hypoglycemia Protocol Glipizide (Glucotrol) 10 mg PO ACBD [facility] Last Admin: 09/10/18 08:25 Dose: 10 mg Glucagon (Glucagen Diagnostic Kit) 0 mg IM STAT PRN; Protocol PRN Reason: Hypoglycemia Protocol Glucagon (Glucagen Diagnostic Kit) 0 mg IM STAT PRN; Protocol PRN Reason: Hypoglycemia Protocol Heparin Sodium (Porcine) (Heparin) 5,000 units SC Q8 [facility] Last Admin: 09/10/18 14:32 Dose: 5,000 units Hydromorphone HCl (Dilaudid) 0.5 mg IVP Q15M PRN PRN Reason: Pain, severe (8-10) Dextrose (Dextrose 5% In Water 1000 Ml) 1,000 mls @ 0 mls/hr IV .Q0M PRN; Protocol PRN Reason: Hypoglycemia Protocol Piperacillin Sod/Tazobactam Sod (Zosyn 3.375 Gm Iv Premix) 3.375 gm in 50 mls @ 200 mls/hr IVPB Q6H [facility]; Protocol Last Admin: 09/10/18 09:00 Dose: 200 mls/hr Vancomycin/Sodium Chloride (Vancomycin 1 Gm/Ns 200 Ml) 1 gm in 200 mls @ 166.6 mls/hr IVPB Q12H [facility]; Protocol Stop: 09/12/18 22:01 Last Admin: 09/09/18 10:10 Dose: 166.6 mls/hr Dextrose (Dextrose 5% In Water 1000 Ml) 1,000 mls @ 0 mls/hr IV .Q0M PRN; Protocol PRN Reason: Hypoglycemia Protocol Sodium Chloride (Sodium Chloride 0.45%) 1,000 mls @ 100 mls/hr IV .Q10H [facility] Last Admin: 09/09/18 03:15 Dose: 100 mls/hr Clindamycin Phosphate 600 mg/ (Sodium Chloride) 54 mls @ 100 mls/hr IVPB Q8H [facility]; Protocol Last Admin: 09/10/18 13:30 Dose: 100 mls/hr Insulin Human NPH (Novolin N) 10 unit SC HS [facility] Last Admin: 09/09/18 21:45 Dose: 10 units Insulin Human Regular (Novolin R) 0 unit SC [facility]; Protocol Last Admin: 09/10/18 12:00 Dose: Not Given Lactobacillus Acidophilus (Bacid Acidophilus) 1 cap PO Q12H [facility] Last Admin: 09/10/18 06:07 Dose: 1 cap Lisinopril (Zestril) 5 mg PO DAILY [facility] Metformin HCl (Glucophage) 500 mg PO BID [facility] Last Admin: 09/09/18 09:44 Dose: Not Given Oxycodone HCl (Oxycodone Immediate Release Tab) 5 mg PO Q6 PRN PRN Reason: Pain, severe (8-10) Last Admin: 09/06/18 15:20 Dose: 5 mg Rosuvastatin Calcium (Crestor) 5 mg PO HS [facility] Last Admin: 09/09/18 21:44 Dose: 5 mg - Labs Labs: 09/10/18 07:39 09/10/18 07:39 PT 10.6 SECONDS (9.7-12.2) 09/09/18 07:11 INR 1.0 09/09/18 07:11 APTT 34 SECONDS (21-34) 09/05/18 20:16
[2018-09-10] MEDS: (Novolin N) Insulin Human Isophane (NPH) 100 u/ml 10 ml vial SC SCH (21:56)
[2018-09-10] MEDS: Sodium Chloride 0.45% 1,000 ML IV SCH (22:00)
--- NOTE | 2018-09-10 22:33 | PN ---
DATE: 09/10/2018 LOCATION: In room 354. SUBJECTIVE: This is a 43-year-old male with recent uncontrolled type 2 insulin-requiring diabetes, now being followed closely for metabolic management. LABORATORY DATA: His glycemic lab works are fluctuating, but much improved at this time and his glucose values have ranged from 166 to 175 mg/dL. His chemistries show a BUN of 15, sodium 134, potassium 3.7, chloride 99, CO2 29, glucose 166, and creatinine 1.4. ASSESSMENT AND PLAN: So at this time, we will continue Novolin NPH, given as 10 units subcu at bedtime daily as given. We will continue also the glipizide given as 10 mg b.i.d. before meals as ordered. We will obtain serial chemistries and supplement accordingly as needed. As his creatinine levels improve, may restart his metformin therapy accordingly, especially for outpatient diabetic management. We will continue the intravenous hydration as given and obtain serial chemistries accordingly. We will signed off from the patient's diabetic care and we will concur with present medical management otherwise. Laura Stallworth MD
[2018-09-11] MEDS: Piperacill/Tazo 3.375gm in Dex 3.375 GM/50 ML BAG IVPB SCH ×4 (03:00→21:48)
[2018-09-11] MEDS: Lactobacillus Acidophilus 500 MU Cap PO SCH ×2 (06:12→18:07)
[2018-09-11 07:35] LABS: BASO # 0.1 K/uL (0.0-0.2); BASO % 0.8 % (0.0-2.0); EOS # 0.2 K/uL (0.0-0.7); EOS % 2.6 % (0.0-4.0); HEMOGLOBIN 8.7 g/dL (12.0-18.0); LYMPH # 1.7 K/uL (1.0-4.3); LYMPH % 25.8 % (20.0-40.0); MEAN CELL VOLUME 89.7 fL (80.0-94.0); MEAN CORPUSCULAR HEMOGLOBIN 29.7 pg (27.0-31.0); MEAN CORPUSCULAR HGB CONC 33.1 g/dL (33.0-37.0); MONO # 0.9 K/uL (0.0-0.8); MONO % 14.8 % (0.0-10.0); NEUT # 3.6 K/uL (1.8-7.0); RBC 2.92 Mil/uL (4.40-5.90); RED CELL DISTRIBUTION WIDTH 12.3 % (11.5-14.5); WHITE BLOOD COUNT 6.4 K/uL (4.8-10.8)
[2018-09-11 07:49] LABS: ALB/GLOB RATIO 0.7 (1.0-2.1); ALBUMIN 2.6 g/dL (3.5-5.0); ALT/SGPT 34 U/L (21-72); AST/SGOT 43 U/L (17-59); BLOOD UREA NITROGEN 13 mg/dL (9-20); CALCIUM 8.1 mg/dl (8.6-10.4); GFR NON-AFRICAN AMERICAN 51
[2018-09-11] MEDS: (Novolin R) Insulin Human Regular 100 units/ml vial SC SCH ×4 (08:42→21:44)
--- NOTE | 2018-09-11 10:48 | CP.PCM.PN ---
Subjective - Date & Time of Evaluation Date of Evaluation: 09/11/18 Time of Evaluation: 10:45 - Subjective Subjective: Surgery Progress note. Dr. Latif Pt seen and examined at bedside. No acute events overnight. No N/V/D. No F/C. Wound care staff at bedside: recommends one more day of betadine soaked gauze. Patient with no new complaints. Objective - Vital Signs/Intake and Output Vital Signs (last 24 hours): Temp Pulse Resp BP Pulse Ox 98.8 F 79 20 131/76 99 09/11/18 07:59 09/11/18 07:59 09/11/18 07:59 09/11/18 07:59 09/11/18 07:59 Intake and Output: 09/11/18 09/11/18 06:59 18:59 Intake Total 700 Balance 700 - Medications Medications: Current Medications Acetaminophen (Tylenol 325mg Tab) 325 mg PO Q6 PRN PRN Reason: Pain, Mild (1-3) Acetaminophen (Tylenol 325mg Tab) 650 mg PO Q6 PRN PRN Reason: Pain, moderate (4-7) Amlodipine Besylate (Norvasc) 5 mg PO DAILY [facility] Last Admin: 09/11/18 09:41 Dose: 5 mg Dextrose (Dextrose 50% Inj) 0 ml IV STAT PRN; Protocol PRN Reason: Hypoglycemia Protocol Dextrose (Glutose 15) 0 gm PO ONCE PRN; Protocol PRN Reason: Hypoglycemia Protocol Dextrose (Dextrose 50% Inj) 0 ml IV STAT PRN; Protocol PRN Reason: Hypoglycemia Protocol Dextrose (Glutose 15) 0 gm PO ONCE PRN; Protocol PRN Reason: Hypoglycemia Protocol Glipizide (Glucotrol) 10 mg PO ACBD [facility] Last Admin: 09/11/18 08:38 Dose: 10 mg Glucagon (Glucagen Diagnostic Kit) 0 mg IM STAT PRN; Protocol PRN Reason: Hypoglycemia Protocol Glucagon (Glucagen Diagnostic Kit) 0 mg IM STAT PRN; Protocol PRN Reason: Hypoglycemia Protocol Heparin Sodium (Porcine) (Heparin) 5,000 units SC Q8 [facility] Last Admin: 09/11/18 05:20 Dose: 5,000 units Hydromorphone HCl (Dilaudid) 0.5 mg IVP Q15M PRN PRN Reason: Pain, severe (8-10) Dextrose (Dextrose 5% In Water 1000 Ml) 1,000 mls @ 0 mls/hr IV .Q0M PRN; Protocol PRN Reason: Hypoglycemia Protocol Piperacillin Sod/Tazobactam Sod (Zosyn 3.375 Gm Iv Premix) 3.375 gm in 50 mls @ 200 mls/hr IVPB Q6H [facility]; Protocol Last Admin: 09/11/18 09:41 Dose: 200 mls/hr Vancomycin/Sodium Chloride (Vancomycin 1 Gm/Ns 200 Ml) 1 gm in 200 mls @ 166.6 mls/hr IVPB Q12H [facility]; Protocol Stop: 09/12/18 22:01 Last Admin: 09/09/18 10:10 Dose: 166.6 mls/hr Sodium Chloride (Sodium Chloride 0.45%) 1,000 mls @ 100 mls/hr IV .Q10H [facility] Last Admin: 09/10/18 22:00 Dose: 100 mls/hr Clindamycin Phosphate 600 mg/ (Sodium Chloride) 54 mls @ 100 mls/hr IVPB Q8H [facility]; Protocol Last Admin: 09/11/18 05:18 Dose: 100 mls/hr Insulin Human NPH (Novolin N) [address] [facility] Last Admin: 09/10/18 21:56 Dose: 10 units Insulin Human Regular (Novolin R) 0 unit SC [facility]; Protocol Last Admin: 09/11/18 08:42 Dose: Not Given Lactobacillus Acidophilus (Bacid Acidophilus) 1 cap PO Q12H [facility] Last Admin: 09/11/18 06:12 Dose: 1 cap Lisinopril (Zestril) 5 mg PO DAILY [facility] Metformin HCl (Glucophage) 500 mg PO BID [facility] Last Admin: 09/09/18 09:44 Dose: Not Given Oxycodone HCl (Oxycodone Immediate Release Tab) 5 mg PO Q6 PRN PRN Reason: Pain, severe (8-10) Last Admin: 09/06/18 15:20 Dose: 5 mg Rosuvastatin Calcium (Crestor) [address] [facility] Last Admin: 09/10/18 21:47 Dose: 5 mg - Labs Labs: 09/11/18 07:23 09/11/18 07:23 PT 10.6 SECONDS (9.7-12.2) 09/09/18 07:11 INR 1.0 09/09/18 07:11 APTT 34 SECONDS (21-34) 09/05/18 20:16 - Constitutional Appears: Well - Head Exam Head Exam: ATRAUMATIC, NORMAL INSPECTION, NORMOCEPHALIC - Eye Exam Eye Exam: EOMI, Normal appearance - ENT Exam ENT Exam: Mucous Membranes Moist - Respiratory Exam Respiratory Exam: NORMAL BREATHING PATTERN. absent: Accessory Muscle Use, Respiratory Distress - Cardiovascular Exam Cardiovascular Exam: RRR. absent: JVD - GI/Abdominal Exam GI & Abdominal Exam: Soft. absent: Distended, Firm, Guarding, Rigid, Tenderness, Rebound - Extremities Exam Additional comments: Right calf wound dressing replaced. Clean skin base. - Neurological Exam Neurological Exam: Alert, Awake, Oriented x3 - Psychiatric Exam Psychiatric exam: Normal Affect, Normal Mood - Skin Skin Exam: Warm Assessment and Plan - Assessment and Plan (Free Text) Assessment: 43yo M with RLE abscess s/p debridement POD2 -Culture: MRSA and beta hemolytic strep. -Intraop culture pending Plan: - Continue Abx as per ID. - Continue glucose control as per Endo recs - f/u final wound cultures - Wound care recommendations appreciated: Betadine soaked kerlix for one more day. May transition to alliginate and silver dressing tomorrow. - Wound care team will follow. Appreciate recommendations. - Dressing changes as needed as per wound care recs Further recs as per Dr. Salomon Khalil PGY2 Surgery
--- NOTE | 2018-09-11 13:45 | CP.PCM.PN ---
<Frederick Erazo - Last Filed: 09/11/18 14:53> Subjective - Date & Time of Evaluation Date of Evaluation: 09/11/18 Time of Evaluation: 13:42 - Subjective Subjective: PGY-1 Medicine Progress Note for Dr. Coy's service Patient seen and examined at bedside. Patient reports mild calf pain but much improved from yesterday. Patient was reminded he has pain medications available if the pain increases. Patient denies fevers, chills, cp, n/v, constipation or diarrhea, and dysuria. Objective - Vital Signs/Intake and Output Vital Signs (last 24 hours): Temp Pulse Resp BP Pulse Ox 98.8 F 79 20 131/76 99 09/11/18 07:59 09/11/18 07:59 09/11/18 07:59 09/11/18 07:59 09/11/18 07:59 Intake and Output: 09/11/18 09/11/18 06:59 18:59 Intake Total 700 Balance 700 - Medications Medications: Current Medications Acetaminophen (Tylenol 325mg Tab) 325 mg PO Q6 PRN PRN Reason: Pain, Mild (1-3) Acetaminophen (Tylenol 325mg Tab) 650 mg PO Q6 PRN PRN Reason: Pain, moderate (4-7) Amlodipine Besylate (Norvasc) 5 mg PO DAILY [facility] Last Admin: 09/11/18 09:41 Dose: 5 mg Dextrose (Dextrose 50% Inj) 0 ml IV STAT PRN; Protocol PRN Reason: Hypoglycemia Protocol Dextrose (Glutose 15) 0 gm PO ONCE PRN; Protocol PRN Reason: Hypoglycemia Protocol Dextrose (Dextrose 50% Inj) 0 ml IV STAT PRN; Protocol PRN Reason: Hypoglycemia Protocol Dextrose (Glutose 15) 0 gm PO ONCE PRN; Protocol PRN Reason: Hypoglycemia Protocol Glipizide (Glucotrol) 10 mg PO ACBD [facility] Last Admin: 09/11/18 08:38 Dose: 10 mg Glucagon (Glucagen Diagnostic Kit) 0 mg IM STAT PRN; Protocol PRN Reason: Hypoglycemia Protocol Glucagon (Glucagen Diagnostic Kit) 0 mg IM STAT PRN; Protocol PRN Reason: Hypoglycemia Protocol Heparin Sodium (Porcine) (Heparin) 5,000 units SC Q8 [facility] Last Admin: 09/11/18 13:37 Dose: 5,000 units Hydromorphone HCl (Dilaudid) 0.5 mg IVP Q15M PRN PRN Reason: Pain, severe (8-10) Dextrose (Dextrose 5% In Water 1000 Ml) 1,000 mls @ 0 mls/hr IV .Q0M PRN; Protocol PRN Reason: Hypoglycemia Protocol Piperacillin Sod/Tazobactam Sod (Zosyn 3.375 Gm Iv Premix) 3.375 gm in 50 mls @ 200 mls/hr IVPB Q6H [facility]; Protocol Last Admin: 09/11/18 09:41 Dose: 200 mls/hr Vancomycin/Sodium Chloride (Vancomycin 1 Gm/Ns 200 Ml) 1 gm in 200 mls @ 166.6 mls/hr IVPB Q12H [facility]; Protocol Stop: 09/12/18 22:01 Last Admin: 09/09/18 10:10 Dose: 166.6 mls/hr Sodium Chloride (Sodium Chloride 0.45%) 1,000 mls @ 100 mls/hr IV .Q10H [facility] Last Admin: 09/10/18 22:00 Dose: 100 mls/hr Clindamycin Phosphate 600 mg/ (Sodium Chloride) 54 mls @ 100 mls/hr IVPB Q8H [facility]; Protocol Last Admin: 09/11/18 12:24 Dose: 100 mls/hr Insulin Human NPH (Novolin N) 10 unit SC [facility] Last Admin: 09/10/18 21:56 Dose: 10 units Insulin Human Regular (Novolin R) 0 unit SC ACHS [facility]; Protocol Last Admin: 09/11/18 11:30 Dose: Not Given Lactobacillus Acidophilus (Bacid Acidophilus) 1 cap PO Q12H [facility] Last Admin: 09/11/18 06:12 Dose: 1 cap Lisinopril (Zestril) 5 mg PO DAILY [facility] Metformin HCl (Glucophage) 500 mg PO BID [facility] Last Admin: 09/09/18 09:44 Dose: Not Given Oxycodone HCl (Oxycodone Immediate Release Tab) 5 mg PO Q6 PRN PRN Reason: Pain, severe (8-10) Last Admin: 09/06/18 15:20 Dose: 5 mg Rosuvastatin Calcium (Crestor) 5 mg PO HS [facility] Last Admin: 09/10/18 21:47 Dose: 5 mg - Labs Labs: 09/11/18 07:23 09/11/18 07:23 PT 10.6 SECONDS (9.7-12.2) 09/09/18 07:11 INR 1.0 09/09/18 07:11 APTT 34 SECONDS (21-34) 09/05/18 20:16 - Additional Findings Additional findings: - Constitutional Appears: Well, Non-toxic, No Acute Distress - Head Exam Head Exam: ATRAUMATIC, NORMOCEPHALIC - Eye Exam Eye Exam: EOMI, Normal appearance, PERRL Pupil Exam: NORMAL ACCOMODATION, PERRL - Respiratory Exam Respiratory Exam: Clear to Ausculation Bilateral, NORMAL BREATHING PATTERN. absent: Accessory Muscle Use, Rales, Rhonchi, Wheezes - Cardiovascular Exam Cardiovascular Exam: REGULAR RHYTHM, +S1, +S2. absent: JVD - GI/Abdominal Exam GI & Abdominal Exam: Soft, Normal Bowel Sounds. absent: Tenderness - Extremities Exam Extremities Exam: Calf Tenderness. absent: Pedal Edema Additional comments: Right mid calf wound with clean skin base Right calf wound dressing replaced this morning. Used betadine soaked kerlex as loose packing. - Neurological Exam Neurological Exam: Alert, Awake, Oriented x3 - Psychiatric Exam Psychiatric exam: Normal Affect - Skin Skin Exam: Normal Color Assessment and Plan - Assessment and Plan (Free Text) Assessment: Patient is a 43 yo male w/ PMH of depression, hyperlipidemia, and uncontrolled diabetes is admitted to hospital for treatment of abscess with surrounding cellulitis of the right calf. Psych, Surgery, Infectious Disease was consulted. Patient was treated with Vanc/Zosyn. Patient had elevated blood pressure readi ngs so Zestril was initiated. MRI was ordered which showed 2 developing abscess but no signs of osteomyelitis. Endo was consulted for poorly controlled diabetes. Patient was started on glipizide, metformin, and 10 units of NPH HS. Elevation in creatinine was noted but medications were held and fluids administered and patient kidney function normalized. Wound culture positive for MRSA. Patient on clindamycin and Zosyn for antibiotic management. Crestor was initiated and continued due to elevated lipid panel. Plan: Abscess with Surrounding Cellulitis ID consulted: Dr. Langston -Clinda 600mg IVPB tid and Zosyn 3.375 gm IVPB Surgery Consulted- McG: OR I&D (09/09) Bedside Wound culture: MRSA, Group B strep OR Wound Cx positive for MRSA sensitive to clinda MRI of lower extremity: 2 developing abscess but no signs of osteomyelitis Oxycodone 5mg PO q6 PRN for pain Acetaminophen 325mg/650mg PO q6 PRN for pain Dilaudid 0.5mg IVP q15m PRN Uncontrolled Diabetes Dr Stallworth consulted -recs as below A1C- 16.6 ISS sliding scale Hypoglycemic protocol; ACHS NPH 10 added Metformin 500mg PO BID - held Glipizide 10mg PO ACBD 1/2 NS @100 Hypertension Zestril 2.5mg po daily- held Norvasc 5mg po daily Hyperlipidemia Crestor 5mg po HS Depression Psychiatry: Dr. Miller consulted- no intervention at this time Anemia Iron studies suggestive of anemia of chronic disease Patient is asymptomatic and hemodynamically stable PPx: DVT ppx: SCDS only on left leg, Heparin 5000 units sc q8h GI ppx: Lactobacillus 1cap PO q12h Madaser Castro PGY-1 Medical management discussed with Dr. Coy <Lupe Coy V - Last Filed: 09/13/18 20:22> Objective - Vital Signs/Intake and Output Vital Signs (last 24 hours): Temp Pulse Resp BP Pulse Ox 99.3 F 96 H 20 121/80 100 09/13/18 16:00 09/13/18 16:00 09/13/18 16:00 09/13/18 16:00 09/13/18 16:00 - Labs Labs: 09/13/18 06:32 09/13/18 06:32 PT 10.6 SECONDS (9.7-12.2) 09/09/18 07:11 INR 1.0 09/09/18 07:11 APTT 34 SECONDS (21-34) 09/05/18 20:16 Attending/Attestation - Attestation I have personally seen and examined this patient.: Yes I have fully participated in the care of the patient.: Yes I have reviewed all pertinent clinical information, including history, physical exam and plan: Yes Notes (Text): This is late computer entry for 09/11/18. Patient seen, examined, and case discussed with nuclear medical technologist. Patient is postoperative day 2 of debridement of calf. Patient reports he is doing well except for pain. Patient encouraged to use pain management given he had recent surgery. Patient educated at bedside to not let his pain build to ten because he wont receive instant relief and advised he can use Tylenol if he cannot/does not want to use Oxycodone. Will continue IV abx to cover for wound culture. Surgery has changed dressing and recommended for wound care nurse to come and see him and to teach him regarding wound care for discharge planning. Creatinine remains stable. Will hold viviana; and continue with calcium channel cyndie for blood pressure control.
[2018-09-11] MEDS: oxyCODONE 5 mg Immediate Release Tab PO PRN (17:03)
[2018-09-11] MEDS: Sodium Chloride 0.45% 1,000 ML IV SCH (18:06)
--- NOTE | 2018-09-11 19:09 | PN ---
DATE: 09/11/2018 ENDOCRINOLOGY FOLLOWUP NOTE LOCATION: Room 354. SUBJECTIVE: This is a 43-year-old male with recent uncontrolled type 2 insulin-requiring diabetes, now being followed closely for metabolic management. His glycemic levels are fluctuating, but much improved at this time and the latest glucose levels have ranged from 166 to 175 mg/dL. LABORATORY DATA: His chemistries show a BUN of 15, sodium 134, potassium 3.7, chloride 99, CO2 29, glucose 166, and creatinine 1.4. ASSESSMENT AND PLAN: So at this time, we will continue the oral hypoglycemic therapy given as glipizide at 10 mg t.i.d. with basal insulin given as NPH at 10 units at bedtime daily as ordered. We will sign off from the diabetic care of this patient at this time. We would advice him to follow with his primary physician for outpatient ongoing medical and diabetic management. Laura Stallworth MD
[2018-09-11] MEDS: (Novolin N) Insulin Human Isophane (NPH) 100 u/ml 10 ml vial SC SCH ×2 (21:48→23:00)
[2018-09-12] MEDS: Sodium Chloride 0.45% 1,000 ML IV SCH ×3 (01:00→11:24)
[2018-09-12] MEDS: Piperacill/Tazo 3.375gm in Dex 3.375 GM/50 ML BAG IVPB SCH ×4 (02:57→21:41)
[2018-09-12] MEDS: Lactobacillus Acidophilus 500 MU Cap PO SCH ×2 (07:04→19:00)
[2018-09-12 07:08] LABS: BASO % 0.6 % (0.0-2.0); EOS # 0.1 K/uL (0.0-0.7); EOS % 1.9 % (0.0-4.0); HEMOGLOBIN 8.5 g/dL (12.0-18.0); LYMPH # 1.6 K/uL (1.0-4.3); LYMPH % 22.6 % (20.0-40.0); MEAN CORPUSCULAR HEMOGLOBIN 30.9 pg (27.0-31.0); MEAN CORPUSCULAR HGB CONC 33.6 g/dL (33.0-37.0); MEAN PLATELET VOLUME 8.3 fL (7.2-11.7); MONO % 15.2 % (0.0-10.0); NEUT # 4.1 K/uL (1.8-7.0); NEUT % 59.7 % (50.0-75.0); RBC 2.76 Mil/uL (4.40-5.90); RED CELL DISTRIBUTION WIDTH 12.7 % (11.5-14.5); WHITE BLOOD COUNT 6.9 K/uL (4.8-10.8)
[2018-09-12 07:24] LABS: MEAN CELL VOLUME 91.9 fL (80.0-94.0)
[2018-09-12 07:59] LABS: ALB/GLOB RATIO 0.7 (1.0-2.1); ALBUMIN 2.6 g/dL (3.5-5.0); CALCIUM 8.1 mg/dl (8.6-10.4)
[2018-09-12] MEDS: (Novolin R) Insulin Human Regular 100 units/ml vial SC SCH ×4 (08:00→21:43)
[2018-09-12] MEDS: oxyCODONE 5 mg Immediate Release Tab PO PRN (08:28)
--- NOTE | 2018-09-12 17:13 | CP.PCM.PN ---
<Frederick Erazo - Last Filed: 09/12/18 17:10> Subjective - Date & Time of Evaluation Date of Evaluation: 09/12/18 Time of Evaluation: 11:00 - Subjective Subjective: PGY-1 Medicine Progress Note for Dr. Coy's service Patient was seen and examined at bedside today this morning. Patient still has soreness on the right calf but denies any fever, chills, headache, chest pain, shortness of breath, n/v, diarrhea, abdominal pain or dysuria. Objective - Vital Signs/Intake and Output Vital Signs (last 24 hours): Temp Pulse Resp BP Pulse Ox 99 F 87 20 134/85 100 09/12/18 16:03 09/12/18 16:03 09/12/18 16:03 09/12/18 16:03 09/12/18 16:03 Intake and Output: 09/12/18 09/12/18 06:59 18:59 Intake Total 1100 1160 Output Total 750 700 Balance 350 460 - Medications Medications: Current Medications Acetaminophen (Tylenol 325mg Tab) 325 mg PO Q6 PRN PRN Reason: Pain, Mild (1-3) Acetaminophen (Tylenol 325mg Tab) 650 mg PO Q6 PRN PRN Reason: Pain, moderate (4-7) Amlodipine Besylate (Norvasc) 5 mg PO DAILY [facility] Last Admin: 09/12/18 09:58 Dose: 5 mg Dextrose (Dextrose 50% Inj) 0 ml IV STAT PRN; Protocol PRN Reason: Hypoglycemia Protocol Dextrose (Glutose 15) 0 gm PO ONCE PRN; Protocol PRN Reason: Hypoglycemia Protocol Dextrose (Dextrose 50% Inj) 0 ml IV STAT PRN; Protocol PRN Reason: Hypoglycemia Protocol Dextrose (Glutose 15) 0 gm PO ONCE PRN; Protocol PRN Reason: Hypoglycemia Protocol Glipizide (Glucotrol) 10 mg PO ACBD [facility] Last Admin: 09/12/18 08:28 Dose: 10 mg Glucagon (Glucagen Diagnostic Kit) 0 mg IM STAT PRN; Protocol PRN Reason: Hypoglycemia Protocol Glucagon (Glucagen Diagnostic Kit) 0 mg IM STAT PRN; Protocol PRN Reason: Hypoglycemia Protocol Heparin Sodium (Porcine) (Heparin) 5,000 units SC Q8 [facility] Last Admin: 09/12/18 13:21 Dose: 5,000 units Piperacillin Sod/Tazobactam Sod (Zosyn 3.375 Gm Iv Premix) 3.375 gm in 50 mls @ 200 mls/hr IVPB Q6H [facility]; Protocol Last Admin: 09/12/18 14:06 Dose: 200 mls/hr Clindamycin Phosphate 600 mg/ (Sodium Chloride) 54 mls @ 100 mls/hr IVPB Q8H [facility]; Protocol Last Admin: 09/12/18 12:51 Dose: 100 mls/hr Insulin Human NPH (Novolin N) 6 unit SC [facility] Last Admin: 09/11/18 23:00 Dose: Not Given Insulin Human Regular (Novolin R) 0 unit SC ACHS [facility]; Protocol Last Admin: 09/12/18 11:23 Dose: Not Given Lactobacillus Acidophilus (Bacid Acidophilus) 1 cap PO Q12H [facility] Last Admin: 09/12/18 07:04 Dose: 1 cap Lisinopril (Zestril) 5 mg PO DAILY [facility] Last Admin: 09/12/18 09:58 Dose: 5 mg Metformin HCl (Glucophage) 500 mg PO BID [facility] Last Admin: 09/09/18 09:44 Dose: Not Given Oxycodone HCl (Oxycodone Immediate Release Tab) 5 mg PO Q6 PRN PRN Reason: Pain, severe (8-10) Last Admin: 09/12/18 08:28 Dose: 5 mg Rosuvastatin Calcium (Crestor) 5 mg PO [facility] Last Admin: 09/11/18 21:48 Dose: 5 mg - Labs Labs: 09/12/18 06:58 09/12/18 06:58 PT 10.6 SECONDS (9.7-12.2) 09/09/18 07:11 INR 1.0 09/09/18 07:11 APTT 34 SECONDS (21-34) 09/05/18 20:16 - Constitutional Appears: Well, Non-toxic, No Acute Distress - Head Exam Head Exam: ATRAUMATIC, NORMOCEPHALIC - Eye Exam Eye Exam: EOMI, Normal appearance - Respiratory Exam Respiratory Exam: Clear to Ausculation Bilateral, NORMAL BREATHING PATTERN. absent: Accessory Muscle Use, Rales, Rhonchi, Wheezes - Cardiovascular Exam Cardiovascular Exam: REGULAR RHYTHM, +S1, +S2. absent: JVD - GI/Abdominal Exam GI & Abdominal Exam: Soft, Normal Bowel Sounds. absent: Tenderness - Extremities Exam Extremities Exam: Calf Tenderness, Normal Capillary Refill, Normal Inspection. absent: Pedal Edema Additional comments: Right mid calf wound with areas of necrotic skin changes noted along with fibrinous deposits. Right calf wound dressing replaced this morning. Used betadine soaked kerlex as loose packing. - Neurological Exam Neurological Exam: Alert, Awake, Oriented x3 - Psychiatric Exam Psychiatric exam: Normal Affect, Normal Mood - Skin Skin Exam: Intact, Normal Color Assessment and Plan - Assessment and Plan (Free Text) Assessment: Patient is a 43 yo male w/ PMH of depression, hyperlipidemia, and uncontrolled diabetes is admitted to hospital for treatment of abscess with surrounding cellulitis of the right calf. Psych, Surgery, Infectious Disease was consulted. Patient was treated with Vanc/Zosyn. Patient had elevated blood pressure readings so Zestril was initiated. MRI was ordered which showed 2 developing abscess but no signs of osteomyelitis. Endo was consulted for poorly controlled diabetes. Patient was started on glipizide, metformin, and 10 units of NPH HS. Elevation in creatinine was noted but medications were held and fluids administe red and patient kidney function normalized. Wound culture positive for MRSA. Patient on clindamycin and Zosyn for antibiotic management. Crestor was initiated and continued due to elevated lipid panel. Plan: Abscess with Surrounding Cellulitis ID consulted: Dr. Langston -Clinda 600mg IVPB tid and Zosyn 3.375 gm IVPB Surgery Consulted- Dr. Daley: OR I&D (09/09) Bedside Wound culture: MRSA, Group B strep OR Wound Cx positive for MRSA sensitive to clinda MRI of lower extremity: 2 developing abscess but no signs of osteomyelitis Oxycodone 5mg PO q6 PRN for pain Acetaminophen 325mg/650mg PO q6 PRN for pain Dilaudid 0.5mg IVP q15m PRN Uncontrolled Diabetes Dr Stallworth consulted -recs as below A1C- 16.6 ISS sliding scale Hypoglycemic protocol; ACHS NPH 10 added Metformin 500mg PO BID - held Glipizide 10mg PO ACBD NS @100 Hypertension Zestril 5 mg po daily Norvasc 5mg po daily Hyperlipidemia Crestor 5mg po HS Depression Psychiatry: Dr. Miller consulted- no intervention at this time Anemia Iron studies suggestive of anemia of chronic disease Patient is asymptomatic and hemodynamically stable PPx: DVT ppx: SCDS only on left leg, Heparin 5000 units sc q8h GI ppx: Lactobacillus 1cap PO q12h Disposition: likely d/c tomorrow Frederick Erazo PGY-1 Medical management discussed with Dr. Coy <ZbigniewLupe V - Last Filed: 09/13/18 20:26> Objective - Vital Signs/Intake and Output Vital Signs (last 24 hours): Temp Pulse Resp BP Pulse Ox 99.3 F 96 H 20 121/80 100 09/13/18 16:00 09/13/18 16:00 09/13/18 16:00 09/13/18 16:00 09/13/18 16:00 - Labs Labs: 09/13/18 06:32 09/13/18 06:32 PT 10.6 SECONDS (9.7-12.2) 09/09/18 07:11 INR 1.0 09/09/18 07:11 APTT 34 SECONDS (21-34) 09/05/18 20:16 Attending/Attestation - Attestation I have personally seen and examined this patient.: Yes I have fully participated in the care of the patient.: Yes I have reviewed all pertinent clinical information, including history, physical exam and plan: Yes Notes (Text): This is late computer entry for 09/12/18. Patient seen, examined, and case discussed with day-time resident. Patient reports he is doing better. Reports calf pain is less. Creatinine is relatively stable. Patient seen by wound care nurse and taught how to do dressing today. Patient to be evaluated by infectious disease for final antibiotic regiment for discharge planning. We will prepare his medications upon discharge for anticipated discharge tomorrow. Patient reports he plans to move back with his parents in [facility], but reports he does plan to stay in [place] because his daughter lives her. We will see if we can arrange for voucher to offset the cost since patient is without insurance.
[2018-09-12] MEDS: (Novolin N) Insulin Human Isophane (NPH) 100 u/ml 10 ml vial SC SCH (21:42)
[2018-09-13] MEDS: Piperacill/Tazo 3.375gm in Dex 3.375 GM/50 ML BAG IVPB SCH ×3 (03:00→14:58)
[2018-09-13] MEDS: Lactobacillus Acidophilus 500 MU Cap PO SCH (06:11)
[2018-09-13 07:06] LABS: ALB/GLOB RATIO 0.7 (1.0-2.1); ALBUMIN 2.6 g/dL (3.5-5.0); CALCIUM 8.3 mg/dl (8.6-10.4)
[2018-09-13] MEDS ORDERED: Sodium Chloride 0.9% 1,000 ML IV SCH (07:15)
[2018-09-13 07:26] LABS: BASO % 0.6 % (0.0-2.0); EOS # 0.2 K/uL (0.0-0.7); EOS % 2.1 % (0.0-4.0); HEMOGLOBIN 8.5 g/dL (12.0-18.0); LYMPH # 1.6 K/uL (1.0-4.3); LYMPH % 21.3 % (20.0-40.0); MEAN CELL VOLUME 90.4 fL (80.0-94.0); MEAN CORPUSCULAR HEMOGLOBIN 30.1 pg (27.0-31.0); MEAN CORPUSCULAR HGB CONC 33.3 g/dL (33.0-37.0); MEAN PLATELET VOLUME 8.5 fL (7.2-11.7); MONO # 1.2 K/uL (0.0-0.8); MONO % 15.3 % (0.0-10.0); NEUT # 4.6 K/uL (1.8-7.0); NEUT % 60.7 % (50.0-75.0); RBC 2.81 Mil/uL (4.40-5.90); RED CELL DISTRIBUTION WIDTH 12.7 % (11.5-14.5); WHITE BLOOD COUNT 7.5 K/uL (4.8-10.8)
[2018-09-13] MEDS: (Novolin R) Insulin Human Regular 100 units/ml vial SC SCH ×3 (08:05→17:19)
[2018-09-13] MEDS: oxyCODONE 5 mg Immediate Release Tab PO PRN (08:35)
--- NOTE | 2018-09-13 13:25 | CP.PCM.DIS ---
<Frederick Erazo - Last Filed: 09/13/18 13:48> Provider - Provider Date of Admission: 09/05/18 22:17 Attending physician: Gena Dugan MD Consults: 09/05/18 22:16 Infectious Disease Consult Stat Comment: Consulting Provider: Ovi Langston Consulting Physician: Ovi Langston Reason for Consult: Right Leg Diabetic ulcer abscess/phlegmon. Vanc&Zosyn started 09/05/18 22:25 General Surgery Consult Stat Comment: Requested by PMD Dr. Hernandez Consulting Provider: Kendell Latif Jr. Consulting Physician: Kendell Latif Jr. Reason for Consult: Right Leg cellulitis likely will need I&D 09/05/18 22:42 Psychiatry Consult Routine Comment: May contact Dr. Miller in the morning 09/06/18 Consulting Provider: Andrea Miller Consulting Physician: Andrea Miller Reason for Consult: Hx Depression. NO thoughts of hurting himself 09/07/18 17:03 Physician Consult Routine Comment: Consulting Provider: Laura Stallworth Consulting Physician: Laura Stallworth Reason for Consult: Poorly controlled DM/Brittle DM/HA1c 16 09/10/18 08:44 Wound Care [Nursing Referral for Wound Care] Routine Comment: Physician Instructions: Reason For Exam: Right Calf Abscess s/p debridement Time Spent in preparation of Discharge (in minutes): 45 Hospital Course - Lab Results Lab Results: Micro Results 09/09/18 14:15 Calf - Right Gram Stain - Final 09/09/18 14:15 Calf - Right Wound Culture - Final Methicillin Resistant S Aureus 09/05/18 20:30 Blood Blood Culture - Final NO GROWTH AFTER 5 DAYS 09/05/18 20:30 Blood Gram Stain - Final TEST NOT PERFORMED 09/05/18 20:00 Blood Blood Culture - Final NO GROWTH AFTER 5 DAYS 09/05/18 20:00 Blood Gram Stain - Final TEST NOT PERFORMED 09/05/18 Unknown Calf - Abscess Gram Stain - Final 09/05/18 Unknown Calf - Abscess Wound Culture - Final Methicillin Resistant S Aureus Beta Hemolytic Strep Group B Most Recent Lab Values WBC 7.5 K/uL (4.8-10.8) 09/13/18 06:32 RBC 2.81 Mil/uL (4.40-5.90) L 12/07/18 06:32 Hgb 8.5 g/dL (12.0-18.0) L 09/13/18 06:32 Hct 25.4 % (35.0-51.0) L 09/13/18 06:32 MCV 90.4 fL (80.0-94.0) 09/13/18 06:32 MCH 30.1 pg (27.0-31.0) 09/13/18 06:32 MCHC 33.3 g/dL (33.0-37.0) 09/13/18 06:32 RDW 12.7 % (11.5-14.5) 09/13/18 06:32 Plt Count 385 K/uL (130-400) 09/13/18 06:32 MPV 8.5 fL (7.2-11.7) 09/13/18 06:32 Neut % (Auto) 60.7 % (50.0-75.0) 09/13/18 06:32 Lymph % (Auto) 21.3 % (20.0-40.0) 09/13/18 06:32 [place]cy % (Auto) 15.3 % (0.0-10.0) H 09/13/18 06:32 Eos % (Auto) 2.1 % (0.0-4.0) 09/13/18 06:32 Baso % (Auto) 0.6 % (0.0-2.0) 09/13/18 06:32 Neut # (Auto) 4.6 K/uL (1.8-7.0) 09/13/18 06:32 Lymph # (Auto) 1.6 K/uL (1.0-4.3) 09/13/18 06:32 Searcy # (Auto) 1.2 K/uL (0.0-0.8) H 09/13/18 06:32 Eos # (Auto) 0.2 K/uL (0.0-0.7) 09/13/18 06:32 Baso # (Auto) 0.0 K/uL (0.0-0.2) 09/13/18 06:32 PT 10.6 SECONDS (9.7-12.2) 09/09/18 07:11 INR 1.0 09/09/18 07:11 APTT 34 SECONDS (21-34) 09/05/18 20:16 pO2 32 mm/Hg (30-55) 09/05/18 20:20 VBG pH 7.40 (7.32-7.43) 09/05/18 20:20 VBG pCO2 50 mmHg (40-60) 09/05/18 20:20 VBG HCO3 27.9 mmol/L 09/05/18 20:20 VBG Total CO2 32.5 mmol/L (22-28) H 09/05/18 20:20 VBG O2 Sat (Calc) 67.1 % (40-65) H 09/05/18 20:20 VBG Base Excess 5.0 mmol/L (0.0-2.0) H 09/05/18 20:20 VBG Potassium 4.8 mmol/L (3.6-5.2) 09/05/18 20:20 Sodium 133.0 mmol/l (132-148) 09/05/18 20:20 Chloride 99.0 mmol/L (98-107) 09/05/18 20:20 Glucose 586 mg/dl (75-110) H* 09/05/18 20:20 Lactate 1.2 mmol/L (0.7-2.1) 09/05/18 20:20 FiO2 21.0 % 09/05/18 20:20 Crit Value Called To Medardo calvert 09/05/18 20:20 Crit Value Called By [facility] 09/05/18 20:20 Crit Value Read Back Y 09/05/18 20:20 Blood Gas Notified Time 2030 09/05/18 20:20 Sodium 137 mmol/L (132-148) 09/13/18 06:32 Potassium 3.7 mmol/L (3.6-5.2) 09/13/18 06:32 Chloride 102 mmol/L (98-107) 09/13/18 06:32 Carbon Dioxide 28 mmol/L (22-30) 09/13/18 06:32 Anion Gap 10 (10-20) 09/13/18 06:32 BUN 14 mg/dL (9-20) 09/13/18 06:32 Creatinine 1.8 mg/dL (0.8-1.5) H 09/13/18 06:32 Est GFR ( Amer) 50 09/13/18 06:32 Est GFR (Non-Af Amer) 41 09/13/18 06:32 POC Glucose (mg/dL) 248 mg/dL (65-110) H 09/13/18 11:37 Random Glucose 120 mg/dL (75-110) H 09/13/18 06:32 Hemoglobin A1c 16.0 % (4.2-6.5) H D 09/06/18 07:25 Calcium 8.3 mg/dl (8.6-10.4) L 09/13/18 06:32 Phosphorus 4.0 mg/dL (2.5-4.5) 09/13/18 06:32 Magnesium 2.0 mg/dL (1.6-2.3) 09/13/18 06:32 Iron 24 ug/dL (49-181) L 09/08/18 07:06 TIBC 196 ug/dL (250-450) L 09/06/18 07:25 % Saturation 8 (20-55) L 09/06/18 07:25 Ferritin 396.0 ng/mL 09/08/18 07:06 Total Bilirubin 0.2 mg/dL (0.2-1.3) 09/13/18 06:32 AST 40 U/L (17-59) 09/13/18 06:32 ALT 33 U/L (21-72) 09/13/18 06:32 Alkaline Phosphatase 309 U/L (38-126) H 09/13/18 06:32 Total Protein 6.3 g/dL (6.3-8.3) 09/13/18 06:32 Albumin 2.6 g/dL (3.5-5.0) L 09/13/18 06:32 Globulin 3.7 gm/dL (2.2-3.9) 09/13/18 06:32 Albumin/Globulin Ratio 0.7 (1.0-2.1) L 09/13/18 06:32 Triglycerides 97 mg/dL (0-149) D 09/06/18 07:25 Cholesterol 203 mg/dL (0-199) H 09/06/18 07:25 LDL Cholesterol Direct 109 mg/dL (0-129) 09/06/18 07:25 HDL Cholesterol 51 mg/dL (30-70) 09/06/18 07:25 Vitamin B12 762 pg/mL (239-931) 09/06/18 07:25 Folate 11.5 ng/mL 09/06/18 07:25 Free T4 1.70 ng/dL (0.78-2.19) 09/06/18 07:25 TSH 3rd Generation 0.31 mIU/L (0.46-4.68) L 09/06/18 07:25 Venous Blood Potassium 4.8 mmol/L (3.6-5.2) 09/05/18 20:20 Urine Color Straw (YELLOW) 09/05/18 20:46 Urine Clarity Clear (Clear) 09/05/18 20:46 Urine pH 5.0 (5.0-8.0) 09/05/18 20:46 Ur Specific Kent 1.026 (1.003-1.030) 09/05/18 20:46 Urine Protein 2+ mg/dL (NEGATIVE) H 09/05/18 20:46 Urine Glucose (UA) 3+ mg/dL (Normal) H 09/05/18 20:46 Urine Ketones Negative mg/dL (NEGATIVE) 09/05/18 20:46 Urine Blood 2+ (NEGATIVE) H 09/05/18 20:46 Urine Nitrate Negative (NEGATIVE) 09/05/18 20:46 Urine Bilirubin Negative (NEGATIVE) 09/05/18 20:46 Urine Urobilinogen Normal mg/dL (0.2-1.0) 09/05/18 20:46 Ur Leukocyte Esterase Neg Fuentes/uL (Negative) 09/05/18 20:46 Urine WBC (Auto) 2 /hpf (0-5) 09/05/18 20:46 Urine RBC (Auto) 14 /hpf (0-3) H 09/05/18 20:46 Ur Squamous Epith Cells < 1 /hpf (0-5) 09/05/18 20:46 Vancomycin Trough 41.7 ug/mL (5.0-10.0) H 09/09/18 12:09 Random Vancomycin 10.8 ug/mL 09/10/18 14:13 Urine Opiates Screen Negative (NEGATIVE) 09/05/18 22:30 Urine Methadone Screen Negative (NEGATIVE) 09/05/18 22:30 Ur Barbiturates Screen Negative (NEGATIVE) 09/05/18 22:30 Ur Phencyclidine Scrn Negative (NEGATIVE) 09/05/18 22:30 Ur Amphetamines Screen Negative (NEGATIVE) 09/05/18 22:30 U Benzodiazepines Scrn Negative (NEGATIVE) 09/05/18 22:30 U Oth Cocaine Metabols Negative (NEGATIVE) 09/05/18 22:30 U Cannabinoids Screen Negative (NEGATIVE) 09/05/18 22:30 B-Hydroxybutyrate 0.05 mM (0.02-0.27) 09/05/18 20:16 - Hospital Course Hospital Course: Upon Admission Mr. Alarcon is a 43 year old male PMH uncontrolled diabetes, depression comes in for persistent leg wound on his R calf. On 08/16 a small pimple like formation formed on his right lateral calf. Over the next week, it grew in size, formed a head, and popped on its on. It drained a purulent, non- smelly liquid and has been leaking ever since. The patient attempted to keep the wound clean with hydrogen peroxide and dab drying it before wrapping it with gauze. The open wound remained the same size, but the skin surrounding it became erythematous and edematous. It swelled to the point of him being unable to bear weight due to the pain, expanding from just below his knee to his ankle. Only in the last two days has the swelling started to come down and him being able to bear weight once more. He was finally urged to come in by his mother who has told him to come seek medical treatment when it started. But due to his lack of insurance and fear of doctors, he didn't come in until now since he can walk again. Denies fever, chills, chest pain, palpitations, abdominal pain, back pain, left leg pain Hospital Course Patient is a 43 yo male w/ PMH of depression, hyperlipidemia, and uncontrolled diabetes is admitted to hospital for treatment of abscess with surrounding cellulitis of the right calf. Psych, Surgery, Infectious Disease was consulted. Patient was treated with Vanc/Zosyn. Patient had elevated blood pressure readings so Zestril was initiated. MRI was ordered which showed 2 developing abscess but no signs of osteomyelitis. Endo was consulted for poorly controlled diabetes. Patient was started on glipizide, metformin, and 10 units of NPH HS. Elevation in creatinine was noted but medications were held and fluids administered and patient kidney function normalized. Wound culture positive for MRSA. Patient on clindamycin and Zosyn for antibiotic management. Crestor was initiated and continued due to elevated lipid panel. Patient is stable and clear for discharge per Dr. Coy, ID and surgery. Patient was seen by intelligence specialist and educated on how to change his dressing. Patient will follow up in [facility] on 09/[facility] at 2:00PM and continue medical management. Patient's creatinine level was slightly increased and will be monitored outpatient. Discharge Plan 1. Patient is stable for discharge to home as per Dr. Coy. 2. Patient is educated to followup with [facility] at 09/20/18 at 2:00 pm. Patient will need repeat bloodwork to see if kidney function (Cr) normalized. 3. Patient is educated to take the medications as prescribed to him: Norvasc 10mg once daily, Glipizide 10mg once daily, Novolin 6 units once at night, Lisinopril 5mg once daily, Crestor 5mg once at night, Clindamycin 300mg three times a day for next 2 weeks by mouth. 4. Patient understands that he should return to hospital if symptoms worsen or recur. 5. Patient understands the plan as above and agrees. Disclaimer: Written above is a synopsis of patient's current hospital admission. See EMR for full report. Discharge Exam - Head Exam Head Exam: ATRAUMATIC, NORMOCEPHALIC - Eye Exam Eye Exam: EOMI, Normal appearance Pupil Exam: NORMAL ACCOMODATION, PERRL - ENT Exam ENT Exam: Normal Exam - Respiratory Exam Respiratory Exam: Clear to PA & Lateral, NORMAL BREATHING PATTERN, UNREMARKABLE. absent: Accessory Muscle Use, Rales, Rhonchi, Wheezes - Cardiovascular Exam Cardiovascular Exam: REGULAR RHYTHM, +S1, +S2 - GI/Abdominal Exam GI & Abdominal Exam: Normal Bowel Sounds, Unremarkable. absent: Rebound, Rigid, Tenderness - Extremities Exam Extremities exam: normal inspection, pedal pulses present Additional comments: Right mid calf wound with areas of necrotic skin changes noted along with fibrinous deposits. Right calf wound dressing replaced this morning. Used betadine soaked kerlex as loose packing. - Neurological Exam Neurological exam: Alert, Oriented x3 - Psychiatric Exam Psychiatric exam: Normal Affect, Normal Mood - Skin Skin Exam: Intact, Normal Color Discharge Plan - Discharge Medications Prescriptions: RX: amLODIPine [Norvasc] 10 mg PO DAILY #30 tab RX: Clindamycin [Cleocin] 300 mg PO TID #42 cap RX: GlipiZIDE [Glucotrol] 10 mg PO ACBD #30 tab RX: Glucose Meter [Blood Glucose Monitoring System] 1 dev XX ACHS #1 dev RX: Insulin Human Isophane (NPH) [Novolin N] 6 unit SC HS #1 vial RX: Lancets/Blood Glucose Strips [Fora [id number] Strp-Lnct] 1 each ACHS #90 combo..pkg RX: Lisinopril [Zestril] 5 mg PO DAILY #30 tab RX: Lisinopril [Zestril] 5 mg PO DAILY #30 tab Tatamy, Disposable [Needle] 1 each HS #30 dis.needle RX: Rosuvastatin Calcium [Crestor] 5 mg PO HS #30 tab - Follow Up Plan Condition: FAIR Disposition: HOME/ ROUTINE Instructions: Insulin NPH, Diabetes Exchange Diet, Clindamycin (Systemic), Cellulitis (Skin Infection), Adult (DC), Amlodipine, Glipizide, Lisinopril, Rosuvastatin Additional Instructions: 1. Patient is stable for discharge to home as per Dr. Coy. 2. Patient is educated to followup with [facility] at 09/20/18 at 2:00 pm. Patient will need repeat bloodwork to see if kidney function (Cr) normalized. 3. Patient is educated to take the medications as prescribed to him: Norvasc 10mg once daily, Glipizide 10mg once daily, Novolin 6 units once at night, Lisinopril 5mg once daily, Crestor 5mg once at night, Clindamycin 300mg three times a day for next 2 weeks by mouth. 4. Patient understands that he should return to hospital if symptoms worsen or recur. 5. Patient understands the plan as above and agrees. Referrals: [facility] [Provider Group] <Lupe Coy V - Last Filed: 09/13/18 20:39> Provider - Provider Date of Admission: 09/05/18 22:17 Attending physician: Gena Dugan MD Consults: 09/05/18 22:16 Infectious Disease Consult Stat Comment: Consulting Provider: Ovi Langston Consulting Physician: Ovi Langston Reason for Consult: Right Leg Diabetic ulcer abscess/phlegmon. Vanc&Zosyn started 09/05/18 22:25 General Surgery Consult Stat Comment: Requested by PMD Dr. Hernandez Consulting Provider: Kendell Latif Jr. Consulting Physician: Kendell Latif Jr. Reason for Consult: Right Leg cellulitis likely will need I&D 09/05/18 22:42 Psychiatry Consult Routine Comment: May contact Dr. Miller in the morning 09/06/18 Consulting Provider: Andrea Miller Consulting Physician: Andrea Miller Reason for Consult: Hx Depression. NO thoughts of hurting himself 09/07/18 17:03 Physician Consult Routine Comment: Consulting Provider: Laura Stallworth Consulting Physician: Laura Stallworth Reason for Consult: Poorly controlled DM/Brittle DM/HA1c 16 09/10/18 08:44 Wound Care [Nursing Referral for Wound Care] Routine Comment: Physician Instructions: Reason For Exam: Right Calf Abscess s/p debridement Hospital Course - Lab Results Lab Results: Micro Results 09/09/18 14:15 Calf - Right Gram Stain - Final 09/09/18 14:15 Calf - Right Wound Culture - Final Methicillin Resistant S Aureus 09/05/18 20:30 Blood Blood Culture - Final NO GROWTH AFTER 5 DAYS 09/05/18 20:30 Blood Gram Stain - Final TEST NOT PERFORMED 09/05/18 20:00 Blood Blood Culture - Final NO GROWTH AFTER 5 DAYS 09/05/18 20:00 Blood Gram Stain - Final TEST NOT PERFORMED 09/05/18 Unknown Calf - Abscess Gram Stain - Final 09/05/18 Unknown Calf - Abscess Wound Culture - Final Methicillin Resistant S Aureus Beta Hemolytic Strep Group B Most Recent Lab Values WBC 7.5 K/uL (4.8-10.8) 09/13/18 06:32 RBC 2.81 Mil/uL (4.40-5.90) L 09/13/18 06:32 Hgb 8.5 g/dL (12.0-18.0) L 09/13/18 06:32 Hct 25.4 % (35.0-51.0) L 09/13/18 06:32 MCV 90.4 fL (80.0-94.0) 09/13/18 06:32 MCH 30.1 pg (27.0-31.0) 09/13/18 06:32 MCHC 33.3 g/dL (33.0-37.0) 09/13/18 06:32 RDW 12.7 % (11.5-14.5) 09/13/18 06:32 Plt Count 385 K/uL (130-400) 09/13/18 06:32 MPV 8.5 fL (7.2-11.7) 09/13/18 06:32 Neut % (Auto) 60.7 % (50.0-75.0) 09/13/18 06:32 Lymph % (Auto) 21.3 % (20.0-40.0) 09/13/18 06:32 [place] % (Auto) 15.3 % (0.0-10.0) H 09/13/18 06:32 Eos % (Auto) 2.1 % (0.0-4.0) 09/13/18 06:32 Baso % (Auto) 0.6 % (0.0-2.0) 09/13/18 06:32 Neut # (Auto) 4.6 K/uL (1.8-7.0) 09/13/18 06:32 Lymph # (Auto) 1.6 K/uL (1.0-4.3) 09/13/18 06:32 [place] # (Auto) 1.2 K/uL (0.0-0.8) H 09/13/18 06:32 Eos # (Auto) 0.2 K/uL (0.0-0.7) 09/13/18 06:32 Baso # (Auto) 0.0 K/uL (0.0-0.2) 09/13/18 06:32 PT 10.6 SECONDS (9.7-12.2) 09/09/18 07:11 INR 1.0 09/09/18 07:11 APTT 34 SECONDS (21-34) 09/05/18 20:16 pO2 32 mm/Hg (30-55) 09/05/18 20:20 VBG pH 7.40 (7.32-7.43) 09/05/18 20:20 VBG pCO2 50 mmHg (40-60) 09/05/18 20:20 VBG HCO3 27.9 mmol/L 09/05/18 20:20 VBG Total CO2 32.5 mmol/L (22-28) H 09/05/18 20:20 VBG O2 Sat (Calc) 67.1 % (40-65) H 09/05/18 20:20 VBG Base Excess 5.0 mmol/L (0.0-2.0) H 09/05/18 20:20 VBG Potassium 4.8 mmol/L (3.6-5.2) 09/05/18 20:20 Sodium 133.0 mmol/l (132-148) 09/05/18 20:20 Chloride 99.0 mmol/L (98-107) 09/05/18 20:20 Glucose 586 mg/dl (75-110) H* 09/05/18 20:20 Lactate 1.2 mmol/L (0.7-2.1) 09/05/18 20:20 FiO2 21.0 % 09/05/18 20:20 Crit Value Called To Medardo calvert 09/05/18 20:20 Crit Value Called By Hugo brett 09/05/18 20:20 Crit Value Read Back Y 09/05/18 20:20 Blood Gas Notified Time 2030 09/05/18 20:20 Sodium 137 mmol/L (132-148) 09/13/18 06:32 Potassium 3.7 mmol/L (3.6-5.2) 09/13/18 06:32 Chloride 102 mmol/L (98-107) 09/13/18 06:32 Carbon Dioxide 28 mmol/L (22-30) 09/13/18 06:32 Anion Gap 10 (10-20) 09/13/18 06:32 BUN 14 mg/dL (9-20) 09/13/18 06:32 Creatinine 1.8 mg/dL (0.8-1.5) H 09/13/18 06:32 Est GFR ( Amer) 50 09/13/18 06:32 Est GFR (Non-Af Amer) 41 09/13/18 06:32 POC Glucose (mg/dL) 239 mg/dL (65-110) H 09/13/18 16:31 Random Glucose 120 mg/dL (75-110) H 09/13/18 06:32 Hemoglobin A1c 16.0 % (4.2-6.5) H D 09/06/18 07:25 Calcium 8.3 mg/dl (8.6-10.4) L 09/13/18 06:32 Phosphorus 4.0 mg/dL (2.5-4.5) 09/13/18 06:32 Magnesium 2.0 mg/dL (1.6-2.3) 09/13/18 06:32 Iron 24 ug/dL (49-181) L 09/08/18 07:06 TIBC 196 ug/dL (250-450) L 09/06/18 07:25 % Saturation 8 (20-55) L 09/06/18 07:25 Ferritin 396.0 ng/mL 09/08/18 07:06 Total Bilirubin 0.2 mg/dL (0.2-1.3) 09/13/18 06:32 AST 40 U/L (17-59) 09/13/18 06:32 ALT 33 U/L (21-72) 09/13/18 06:32 Alkaline Phosphatase 309 U/L (38-126) H 09/13/18 06:32 Total Protein 6.3 g/dL (6.3-8.3) 09/13/18 06:32 Albumin 2.6 g/dL (3.5-5.0) L 09/13/18 06:32 Globulin 3.7 gm/dL (2.2-3.9) 09/13/18 06:32 Albumin/Globulin Ratio 0.7 (1.0-2.1) L 09/13/18 06:32 Triglycerides 97 mg/dL (0-149) D 09/06/18 07:25 Cholesterol 203 mg/dL (0-199) H 09/06/18 07:25 LDL Cholesterol Direct 109 mg/dL (0-129) 09/06/18 07:25 HDL Cholesterol 51 mg/dL (30-70) 09/06/18 07:25 Vitamin B12 762 pg/mL (239-931) 09/06/18 07:25 Folate 11.5 ng/mL 09/06/18 07:25 Free T4 1.70 ng/dL (0.78-2.19) 09/06/18 07:25 TSH 3rd Generation 0.31 mIU/L (0.46-4.68) L 09/06/18 07:25 Venous Blood Potassium 4.8 mmol/L (3.6-5.2) 09/05/18 20:20 Urine Color Straw (YELLOW) 09/05/18 20:46 Urine Clarity Clear (Clear) 09/05/18 20:46 Urine pH 5.0 (5.0-8.0) 09/05/18 20:46 Ur Specific Kent 1.026 (1.003-1.030) 09/05/18 20:46 Urine Protein 2+ mg/dL (NEGATIVE) H 09/05/18 20:46 Urine Glucose (UA) 3+ mg/dL (Normal) H 09/05/18 20:46 Urine Ketones Negative mg/dL (NEGATIVE) 09/05/18 20:46 Urine Blood 2+ (NEGATIVE) H 09/05/18 20:46 Urine Nitrate Negative (NEGATIVE) 09/05/18 20:46 Urine Bilirubin Negative (NEGATIVE) 09/05/18 20:46 Urine Urobilinogen Normal mg/dL (0.2-1.0) 09/05/18 20:46 Ur Leukocyte Esterase Neg Fuentes/uL (Negative) 09/05/18 20:46 Urine WBC (Auto) 2 /hpf (0-5) 09/05/18 20:46 Urine RBC (Auto) 14 /hpf (0-3) H 09/05/18 20:46 Ur Squamous Epith Cells < 1 /hpf (0-5) 09/05/18 20:46 Vancomycin Trough 41.7 ug/mL (5.0-10.0) H 09/09/18 12:09 Random Vancomycin 10.8 ug/mL 09/10/18 14:13 Urine Opiates Screen Negative (NEGATIVE) 09/05/18 22:30 Urine Methadone Screen Negative (NEGATIVE) 09/05/18 22:30 Ur Barbiturates Screen Negative (NEGATIVE) 09/05/18 22:30 Ur Phencyclidine Scrn Negative (NEGATIVE) 09/05/18 22:30 Ur Amphetamines Screen Negative (NEGATIVE) 09/05/18 22:30 U Benzodiazepines Scrn Negative (NEGATIVE) 09/05/18 22:30 U Oth Cocaine Metabols Negative (NEGATIVE) 09/05/18 22:30 U Cannabinoids Screen Negative (NEGATIVE) 09/05/18 22:30 B-Hydroxybutyrate 0.05 mM (0.02-0.27) 09/05/18 20:16 Attending/Attestation - Attestation I have personally seen and examined this patient.: Yes I have fully participated in the care of the patient.: Yes I have reviewed all pertinent clinical information, including history, physical exam and plan: Yes Notes (Text): Patient seen, examined and case discussed with day-time resident. Patient denies acute complaints. He reports he is able to do dressing changes. Wound care nurse has given him supplies upon discharge. Patient is setup for clinic appointment at the [facility] post hospitalization. We have arranged for voucher to help offset the cost. I have spoken with social and case management to help offset the cost. Medications upon discharge: 1) Norvasc 10mg PO daily (30 tabs) 2) Clindamycin 300mg PO PO TID 14 days-->advised if he has diarrhea to stop and be evaluated immediately 3) Glipizde 10mg PO ACBD 30 days 4) Glucose meter (1) 5) Novolin N 6 units subqHS (1 vial) 6) Lancet/Blood glucose strips (1 month supply) 7) Lisinopril 5mg PO daily (30 tabs) 8) Crestor 5mg PO qHS (30 tabs). Patient will need f/u blood work prior to restarting metformin and iron studies to monitor his anemia. Will not start iron supplements as patient is recovering from infection. He will also need referrals to the vibration analyst, opthamology, and podiatry for his annual diabetic screening exams. This is a brief summary of patient's hospitalization. Please see EMR for further detail of record. Discharge Diagnoses: 1) MRSA Abscess; MRSA Cellulitis Assessment/plan * Infectious Disease (Dr. Langston) on board-->help appreciated * Dr. Price covering; recommended for 2 weeks of Clindamycin 300mg PO TID * Surgery (Dr. Latif) on board-->help appreciated * Place on contact isolation * Wound culture (09/05/18) MRSA: Beta hemolytic strep Group B * sensitive to Vancomycin * Blood culture (09/05/17): no growth * MRI (09/07/18): prominent reticulation and edema within the circumferential subcutaneous soft tissues consistent with cellulitis. more confluent lobulated collection of fluid intensity signal seen with lateral subcutanous soft tissues measuring 4.1 X1.1 X4.3 cm mid tibia and fibula with abscess and our phlegmon collection. Confluent fluid and edema seen within the posterior lateral subcutaneous soft tissues which appear somehwat contgious with lateral collectio 3.1 X0.8 CM phlegmon and/or developing abscess collection. Extensive edema with increased signal seen within anterolateral compartment musculature etc. * CT Scan (09/06/18): prominent reticulation and edema within the subq soft tissues at the anterior and lateral aspect of the left lower extremity level of the tibia and fibula consistent with known cellulitis (further findings per report) * Oxycodone 5mg PO q6H pRN severe pain-->no narcotic pain medication on discharge; advised PRN tylenol 2) Uncontrolled diabetes Assessment/Plan * A1C- 16.6 * ISS sliding scale * Hypoglycemic protocol; ACHS * Glipizide 10mg PO ACBD-->given on discharge * held Metformin 500mg PO BID--->f/u renal function as outpatient prior to restarting * Given prescription: Novolin N 6 units subqHS (1 vial) * Patient will need to be setup with the insulin foundation once he has established care at the [facility] and recommended referrals via the clinic for annual diabetic screening exams including podiatry and ophthalmology. 3) Hypertension Assessment/Plan * Lisinopril 5mg PO daily (30 tabs) * Norvasc 10mg PO daily (30 tabs) 4) Hyperlipidemia Assessment/Plan * Crestor 5mg po HS 5) Depression Assessment/Plan * Psychiatry: Dr. Miller consulted- no intervention at this time 6) Anemia Assessment/Plan * Iron studies suggestive of anemia of chronic disease * Patient is asymptomatic and hemodynamically stable
[2018-09-13 18:31] VITALS: BP 121/80; PULSE 96; TEMP 99.3; O2SAT 100
== END 2018-09-13 18:45 | disposition home or self-care (01) | DRG 364 ==
LOC: C.ER 19:17 → C.9E 22:17 → C.3T 09-06 00:35
PROVIDERS: ADMIT Internal Medicine; ATTEND Internal Medicine
PROC: 0KBS0ZZ Excision of Right Lower Leg Muscle, Open Approach (ICD-10-PCS; principal; 2018-09-09 14:00)
DX: E11.622 Type 2 diabetes mellitus with other skin ulcer (principal); L97.213 Non-pressure chronic ulcer of right calf with necrosis of muscle; L03.115 Cellulitis of right lower limb; E11.65 Type 2 diabetes mellitus with hyperglycemia; I10 Essential (primary) hypertension; B95.62 Methicillin resistant Staphylococcus aureus infection as the cause of diseases classified elsewhere; E86.0 Dehydration; E78.5 Hyperlipidemia, unspecified; F43.22 Adjustment disorder with anxiety; F32.9 Major depressive disorder, single episode, unspecified; L03.116 Cellulitis of left lower limb; M60.9 Myositis, unspecified; Z79.4 Long term (current) use of insulin; L02.415 Cutaneous abscess of right lower limb; Z98.42 Cataract extraction status, left eye; D63.8 Anemia in other chronic diseases classified elsewhere